=== PATIENT | male | born 1965 | race Caucasian/White ===

== ENCOUNTER 2017-06-25 10:48 | Observation (INO) ==
[2017-06-25 11:59] LABS: Bilirubin,Urine Negative (Negative); Blood,Urine Negative (Negative); Color,Urine Yellow (Yellow); Glucose,Urine (UA) Normal (Normal); Ketones,Urine Negative (Negative); Leukocyte Esterase,Urine Negative (Negative); Nitrite,Urine Negative (Negative); Protein,Urine Negative (Neg-Trace); Specific Gravity,Urine 1.015 (1.010-1.025); Urobilinogen,Urine Normal (Normal)
[2017-06-25 12:02] LABS: Clarity,Urine Clear (Clear)
--- NOTE | 2017-06-25 12:22 | Emergency Department Note ---
Disposition Clinical Impression: Hypokalemia Pancreatitis Qualifiers: Chronicity: acute Pancreatitis type: other Acute pancreatitis complication: unspecified Qualified Code(s): K85.80 - Other acute pancreatitis without necrosis or infection Esophageal varices Qualifiers: Esophageal varices type: unspecified type Esophageal varices bleeding: with bleeding Qualified Code(s): I85.01 - Esophageal varices with bleeding Hematemesis Qualifiers: Nausea presence: unspecified Qualified Code(s): K92.0 - Hematemesis Disposition: Admitted As Inpatient Condition: Fair Referrals: NONE,PCP [Primary Care Provider] - Forms: ED Satisfaction Letter, Work/School Release Time of Disposition: 15:18 Abdominal Pain HPI - General Chief Complaint: ED Abdominal Pain Stated Complaint: ABD pain N/V/D Time Seen by Provider: 06/25/17 11:07 Source: patient Nursing Notes Reviewed: Yes Vital Signs Reviewed: Yes - History of Present Illness HPI Narrative: Left upper quadrant pain which began 4 days gradually over time spent several hours and is intermittent and worse when he eats and is both sharp and dull. No radiation. No medication specifically used. I did review the previous records he was seen on the and had a CT scan which did show cirrhosis as well as portal hypertension and esophageal varices. He does have constant blood when he wipes from his hemorrhoids and this is not worse than usual. He does not have any complaint of right upper quadrant abdominal pain. Has had vomiting but none today. No fevers. Does have constant lower extremity swelling but nothing new. Social history: No smoking or alcohol. Per the record does have a family history of cirrhosis Pain Scale: 6 - Related Data Home Medications Medication Instructions Recorded Confirmed No Known Home Drugs 06/25/17 06/25/17 Allergies Allergy/AdvReac Type Severity Reaction Status Date / Time No Known Allergies Allergy Verified 06/25/17 10:53 Review of Systems: As Per HPI Abdominal Pain PMH - Past Medical History Medical history: Reports: asthma Male Surgical History: Reports: orthopedic, other Psychiatric history: Reports: no psych history - Social History Smoking status: Never smoker Alcohol use: Reports: rarely Drug use: Reports: none Physical Exam CONSTITUTIONAL: Alert and oriented X3, well-nourished, well appearing, in no apparent distress HEAD: Normocephalic; atraumatic. EYES: PERRL, no scleral icterus. NOSE: The nose is normal in appearance without rhinorrhea RESP: Normal chest excursion with respiration; breath sounds clear and equal bilaterally; no wheezes, rhonchi, or rales CARD: Regular rhythm, without murmurs, rub or gallop ABD: Non-distended; does have a minimal red area above the left upper quadrant and he said he has been scratching this area but there is no vesicles or anything in the dermatomal distribution which would be suggestive of zoster. He does have mild left upper quadrant pain but this area is soft without rigidity, rebound, guarding and elsewhere including the right upper quadrant abdomen is non-tender, soft,without rigidity, rebound or guarding SKIN: Normal for age and race; warm and dry; no apparent lesions Extremities: Bilateral lower extremity swelling which is moderate and no erythema or signs of infection. No asymmetry - General Limitations: no limitations General appearance: alert Course Vital Signs Temperature 98 F 06/25/17 10:54 Pulse Rate 86 06/25/17 10:54 Respiratory Rate 20 06/25/17 10:54 Blood Pressure 161/91 06/25/17 10:54 O2 Sat by Pulse Oximetry 94 06/25/17 10:54 Temperature 98 F 06/25/17 10:54 Pulse Rate 86 06/25/17 10:54 Respiratory Rate 20 06/25/17 10:54 Blood Pressure 161/91 06/25/17 10:54 O2 Sat by Pulse Oximetry 94 06/25/17 10:54 Oxygen Delivery Oxygen Delivery Room Air Abdominal Pain - MDM Narrative Medical decision making narrative: He does have cirrhosis and some splenomegaly based on the CT and that is likely the etiology of his pain this does need further evaluation and I will discuss further with GI. He is breathing comfortably. No chest pain or shortness of breath or any signs of myocardial ischemia. Labs here are pending. 1221 Labs and test results have been reviewed. Case discussed with the hospitalist who accepted the patient for admission. Rectal exam was positive for blood. The patient is started on Protonix, and octreotide. He will be kept nothing by mouth. IV fluids are given. Patient's potassium minimally low and this will be given IV 1613 - Medical Records Medical records reviewed: Yes I reviewed the patient's medical records. - Lab Data Lab results reviewed: Yes I reviewed the patient's lab results. Result diagrams: 06/25/17 12:16 06/25/17 12:16 Lab Results 06/25/17 06/25/17 06/25/17 Range/Units 11:37 12:16 12:16 WBC 5.9 (4.3-11.1) K/mcL RBC 3.72 L (4.19-5.50) M/mcL Hgb 12.8 L (12.9-16.9) g/dL Hct 37.1 L (37.5-50.1) % MCV 99.7 (83.0-100.0) fL MCH 34.4 H (28.0-33.3) pg MCHC 34.5 (31.6-35.5) g/dL RDW 14.6 H (11.5-14.5) % Plt Count 97 L (140-400) K/mcL MPV 9.7 (9.4-12.4) fL Seg Neutrophils % 58.0 % Lymphocytes % 24.0 % Monocytes % 12.0 % Eosinophils % 6.0 % Neutrophils # 3.4 (1.6-8.9) K/mcL Lymphocytes # 1.4 (0.6-4.6) K/mcL Monocytes # 0.7 (0.0-1.3) K/mcL Eosinophils # 0.4 (0.0-0.6) K/mcL Reactive Lymphocytes Present A (Not Present) Toxic Granulation Present A (Not Present) Platelet Estimate Decreased L (Normal) Immature Plt Fraction 3.3 (1.1-6.1) % Sodium 137 (136-145) mEq/L Potassium 3.3 L (3.5-5.1) mEq/L Chloride 106 (98-107) mEq/L Carbon Dioxide 25 (23-29) mEq/L BUN 6 (6-20) mg/dL Creatinine 0.57 L (0.70-1.30) mg/dL Est GFR ( Amer) > 60 (> 60) Est GFR (Non-Af Amer) > 60 (> 60) BUN/Creatinine Ratio 11 (6-26) Glucose 127 H (70-105) mg/dL Calculated Osmolality 283 (280-300) Calcium 8.6 (8.6-10.3) mg/dL Total Bilirubin 1.6 H (0.3-1.0) mg/dL Direct Bilirubin 0.5 H (0.0-0.2) mg/dL Indirect Bilirubin 1.1 (0.0-1.2) mg/dL AST 89 H (13-39) Units/L ALT 49 (7-52) Units/L Alkaline Phosphatase 152 H (34-104) Units/L Serum Total Protein 7.3 (6.4-8.9) g/dL Albumin 3.0 L (3.5-5.7) g/dL Globulin 4.3 H (2.4-3.5) g/dL Albumin/Globulin Ratio 0.7 L (1.1-2.2) Lipase 271 H (11-82) Units/L Urine Color Yellow (Yellow) Urine Clarity Clear (Clear) Urine pH 7.0 (5.0-8.0) pH Units Ur Specific [place] 1.015 (1.010-1.025) Urine Protein Negative (Neg-Trace) mg/dL Urine Glucose (UA) Normal (Normal) mg/dL Urine Ketones Negative (Negative) mg/dL Urine Blood Negative (Negative) Urine Nitrite Negative (Negative) Urine Bilirubin Negative (Negative) Urine Urobilinogen Normal (Normal) mg/dL Ur Leukocyte Esterase Negative (Negative) Stool Occult Blood (Negative) 06/25/17 Range/Units 15:26 WBC (4.3-11.1) K/mcL RBC (4.19-5.50) M/mcL Hgb (12.9-16.9) g/dL Hct (37.5-50.1) % MCV (83.0-100.0) fL MCH (28.0-33.3) pg MCHC (31.6-35.5) g/dL RDW (11.5-14.5) % Plt Count (140-400) K/mcL MPV (9.4-12.4) fL Seg Neutrophils % % Lymphocytes % % Monocytes % % Eosinophils % % Neutrophils # (1.6-8.9) K/mcL Lymphocytes # (0.6-4.6) K/mcL Monocytes # (0.0-1.3) K/mcL Eosinophils # (0.0-0.6) K/mcL Reactive Lymphocytes (Not Present) Toxic Granulation (Not Present) Platelet Estimate (Normal) Immature Plt Fraction (1.1-6.1) % Sodium (136-145) mEq/L Potassium (3.5-5.1) mEq/L Chloride (98-107) mEq/L Carbon Dioxide (23-29) mEq/L BUN (6-20) mg/dL Creatinine (0.70-1.30) mg/dL Est GFR ( Amer) (> 60) Est GFR (Non-Af Amer) (> 60) BUN/Creatinine Ratio (6-26) Glucose (70-105) mg/dL Calculated Osmolality (280-300) Calcium (8.6-10.3) mg/dL Total Bilirubin (0.3-1.0) mg/dL Direct Bilirubin (0.0-0.2) mg/dL Indirect Bilirubin (0.0-1.2) mg/dL AST (13-39) Units/L ALT (7-52) Units/L Alkaline Phosphatase (34-104) Units/L Serum Total Protein (6.4-8.9) g/dL Albumin (3.5-5.7) g/dL Globulin (2.4-3.5) g/dL Albumin/Globulin Ratio (1.1-2.2) Lipase (11-82) Units/L Urine Color (Yellow) Urine Clarity (Clear) Urine pH (5.0-8.0) pH Units Ur Specific [place] (1.010-1.025) Urine Protein (Neg-Trace) mg/dL Urine Glucose (UA) (Normal) mg/dL Urine Ketones (Negative) mg/dL Urine Blood (Negative) Urine Nitrite (Negative) Urine Bilirubin (Negative) Urine Urobilinogen (Normal) mg/dL Ur Leukocyte Esterase (Negative) Stool Occult Blood Positive A (Negative) - Radiology Data Radiology results reviewed: Yes I reviewed the patient's radiology results. Critical Care Time Critical Care Time: No
[2017-06-25 12:28] LABS: Red Cell Distribution Width 14.6 % (11.5-14.5)
[2017-06-25 12:29] LABS: Hematocrit 37.1 % (37.5-50.1); Hemoglobin 12.8 g/dL (12.9-16.9); Immature Platelets 3.3 % (1.1-6.1); Mean Corpuscular HGB Conc 34.5 g/dL (31.6-35.5); Mean Corpuscular Hemoglobin 34.4 pg (28.0-33.3); Mean Corpuscular Volume 99.7 fL (83.0-100.0); Mean Platelet Volume 9.7 fL (9.4-12.4); Red Blood Count 3.72 M/mcL (4.19-5.50)
[2017-06-25 12:33] LABS: Platelet Count 97 K/mcL (140-400)
[2017-06-25 12:47] LABS: Alanine Aminotransferase 49 Units/L (7-52); Albumin/Globulin Ratio 0.7 (1.1-2.2); Alkaline Phosphatase 152 Units/L (34-104); Aspartate Amino Transferase 89 Units/L (13-39); BUN/Creatinine Ratio 11 (6-26); Bilirubin,Direct 0.5 mg/dL (0.0-0.2); Bilirubin,Indirect 1.1 mg/dL (0.0-1.2); Bilirubin,Total 1.6 mg/dL (0.3-1.0); Blood Urea Nitrogen 6 mg/dL (6-20); Calcium 8.6 mg/dL (8.6-10.3); Carbon Dioxide 25 mEq/L (23-29); Chloride 106 mEq/L (98-107); Globulin 4.3 g/dL (2.4-3.5); Glucose 127 mg/dL (70-105); Lipase 271 Units/L (11-82); Osmolality,Calculated 283 (280-300); Potassium 3.3 mEq/L (3.5-5.1); Sodium 137 mEq/L (136-145); Total Protein 7.3 g/dL (6.4-8.9); eGFR For African Americans > 60 (> 60); eGFR For Non-African Americans > 60 (> 60)
[2017-06-25 13:42] LABS: Eosinophils # 0.4 K/mcL (0.0-0.6); Lymphocytes # 1.4 K/mcL (0.6-4.6); Monocytes # 0.7 K/mcL (0.0-1.3); Neutrophils # 3.4 K/mcL (1.6-8.9); Platelet Estimate Decreased (Normal); Toxic Granulation Present (Not Present)
[2017-06-25 13:43] LABS: Reactive Lymphocytes Present (Not Present)
[2017-06-25] MEDS ORDERED: Pantoprazole 40 MG VIAL IVP ONE (15:16)
[2017-06-25] MEDS ORDERED: Octreotide 50 MCG/ML SYRINGE IVP ONE (15:17)
[2017-06-25] MEDS ORDERED: 0.9 % Sodium Chloride 1,000 ML IVC ONE (16:11)
--- NOTE | 2017-06-25 19:59 | General Surgery Consult Note ---
Date of Encounter: 06/25/17 Time of Encounter: 18:00 Assessment and Plan (1) Abdominal pain Current Visit: No Status: Acute 51M with LUQ pain; concern for pancreatitis, but, if at all, it is minimal; no obvious pathology on CT although there is concern for possible portal HTN; NPO IVF no abx trend h/h x 24hrs plan for EGD to evaluate for GI bleed and abdominal pain; discussed with patient who is in agreement; Qualifiers: Abdominal location: left upper quadrant Qualified Code(s): R10.12 - Left upper quadrant pain (2) Hematemesis Current Visit: Yes Status: Acute see above Qualifiers: Nausea presence: unspecified Qualified Code(s): K92.0 - Hematemesis History of Present Illness Consult date: 06/25/17 Reason for consult: abdominal pain History of present illness: 51M presents with LUQ pain and hematemesis. Never had any prior episodes of significant pain like this nor any prior episodes of vomiting blood. A CT scan was obtained which was concerning for possible cirrhosis and associated portal hypertension. All imaging was evaluated and interpreted by me. Surgery was consulted for management recommendations. Past Med Surg Social Fam HX - Past Medical History Medical history: asthma Psychiatric history: no psych history - Past Surgical History Surgical History: no surgical history - Social History Smoking Status: Never smoker Smokeless Tobacco Status: No Alcohol use: rarely Drug use: none - Additional Family History Additional family history: non contributory Medications and Allergies No Known Home Drugs 06/25/17 [History] 3 Allergy/AdvReac Type Severity Reaction Status Date / Time No Known Allergies Allergy Verified 06/25/17 10:53 Review of Systems All systems PM: A 10-system review of systems was performed and is negative for pertinent findings except as documented above in the HPI. General Surgery Exam Initial Vital Signs Temp Pulse Resp BP Pulse Ox 98 F 86 20 161/91 94 06/25/17 10:54 06/25/17 10:54 06/25/17 10:54 06/25/17 10:54 06/25/17 10:54 - General physical appearance well developed - Eyes normal ocular movement - ENT normocephalic - Neck no lymphadectomy - Respiratory normal expansion, normal respiratory effort - Cardiovascular Cardiovascular exam: Present: RRR - Abdomen Abdomen general surgery: Present: soft, tender Abdominal Tenderness: Present: LUQ - Integumentary Integumentary general surgery: Present: warm and dry - Neurologic Present: CN 2-12 grossly intact - Psychiatric Psychiatric general surgery: Present: A&Ox3 Exam Initial Vital Signs Temp Pulse Resp BP Pulse Ox 98 F 86 20 161/91 94 06/25/17 10:54 06/25/17 10:54 06/25/17 10:54 06/25/17 10:54 06/25/17 10:54 Results - Labs 06/25/17 12:16 06/25/17 12:16 Abnormal lab results RBC 3.72 M/mcL (4.19-5.50) L 06/25/17 12:16 Hgb 12.8 g/dL (12.9-16.9) L 06/25/17 12:16 Hct 37.1 % (37.5-50.1) L 06/25/17 12:16 MCH 34.4 pg (28.0-33.3) H 06/25/17 12:16 RDW 14.6 % (11.5-14.5) H 06/25/17 12:16 Plt Count 97 K/mcL (140-400) L 06/25/17 12:16 Reactive Lymphocytes Present (Not Present) A 06/25/17 12:16 Toxic Granulation Present (Not Present) A 06/25/17 12:16 Platelet Estimate Decreased (Normal) L 06/25/17 12:16 Potassium 3.3 mEq/L (3.5-5.1) L 06/25/17 12:16 Creatinine 0.57 mg/dL (0.70-1.30) L 06/25/17 12:16 Glucose 127 mg/dL (70-105) H 06/25/17 12:16 Total Bilirubin 1.6 mg/dL (0.3-1.0) H 06/25/17 12:16 Direct Bilirubin 0.5 mg/dL (0.0-0.2) H 06/25/17 12:16 AST 89 Units/L (13-39) H 06/25/17 12:16 Alkaline Phosphatase 152 Units/L (34-104) H 06/25/17 12:16 Albumin 3.0 g/dL (3.5-5.7) L 06/25/17 12:16 Globulin 4.3 g/dL (2.4-3.5) H 06/25/17 12:16 Albumin/Globulin Ratio 0.7 (1.1-2.2) L 06/25/17 12:16 Lipase 271 Units/L (11-82) H 06/25/17 12:16 Stool Occult Blood Positive (Negative) A 06/25/17 15:26 All other labs normal. - Imaging CT scan - abdomen: report reviewed, image reviewed CT scan - pelvis: report reviewed, image reviewed US - abdomen: report reviewed, image reviewed Consult Discharge Plan - Plan Referrals: NONE,PCP [Primary Care Provider] -
--- NOTE | 2017-06-25 20:22 | Internal Med History&Physical ---
Date of Encounter: 06/25/17 Time of Encounter: 19:00 Assessment and Plan (1) Cirrhosis of liver Current visit: No Status: Acute -Patient found to have mild elevated transaminases. -CT of the abdomen/pelvis showed cirrhosis and splenomegaly with findings compatible with portal hypertension in addition to dilated serpiginous tubular structures at the GE junction suggest esophageal varices formation; small amount of ascites. -Will also consult GI for cirrhosis/splenomegaly with elevated transaminases. Qualifiers: Hepatic cirrhosis type: unspecified hepatic cirrhosis Qualified Code(s): K74.60 - Unspecified cirrhosis of liver (2) Pancreatitis Current visit: Yes Status: Acute -Patient with mildly elevated lipase -Will keep nothing by mouth with IV fluids and monitor levels Qualifiers: Chronicity: acute Pancreatitis type: other Acute pancreatitis complication: unspecified Qualified Code(s): K85.80 - Other acute pancreatitis without necrosis or infection (3) Esophageal varices Current visit: Yes Status: Acute -CT of the abdomen/pelvis showed cirrhosis and splenomegaly with findings compatible with portal hypertension in addition to dilated serpiginous tubular structures at the GE junction suggest esophageal varices formation. -Surgery was consult from the ER with recommendations for EGD due to esophageal varices. Qualifiers: Esophageal varices type: unspecified type Esophageal varices bleeding: with bleeding Qualified Code(s): I85.01 - Esophageal varices with bleeding (4) Abdominal pain Current visit: No Status: Acute -Secondary to the above; continue to monitor Qualifiers: Abdominal location: left upper quadrant Qualified Code(s): R10.12 - Left upper quadrant pain (5) Hypokalemia Current visit: Yes Status: Acute -Potassium 2.3 on admission; will order replacements (6) Thrombocytopenia Current visit: Yes Status: Acute -Patient with thrombocytopenia; suspect from cirrhosis -Patient without any active bleeding; continue to monitor (7) DVT prophylaxis Current visit: Yes Status: Acute -SCDs due to thrombocytopenia about Internal Medicine - H&P: HPI Chief complaint: Abdominal pain Admitted From: Home Plans for Post Hospital Care: Home History of present illness: Patient is a 51-year-old male with no significant past medical history who presented to the ER on 06/25/17 due to abdominal pain. Patient reported approximately 5 days ago of experiencing abdominal pain about 4 hours after eating pizza. Patient also reported of abdominal distention. Patient reports of not eating for much of the week but did eat at [employer] yesterday and experienced abdominal pain again shortly thereafter. He also reports a 1 day history of diarrhea as well. Patient decided to come to the ER for evaluation. In the ER, patient was found to have mild elevated transaminases. CT of the abdomen/pelvis showed cirrhosis and splenomegaly with findings compatible with portal hypertension in addition to dilated serpiginous tubular structures at the GE junction suggest esophageal varices formation; small amount of ascites. Surgery was consult from the ER with recommendations for EGD due to esophageal varices. Will also consult GI for cirrhosis/splenomegaly with elevated transaminases. Past Med Surg Social Fam HX - Past Medical History Medical history: asthma Psychiatric history: no psych history - Past Surgical History Surgical History: no surgical history - Social History Smoking Status: Never smoker Smokeless Tobacco Status: No Alcohol use: rarely Drug use: none Internal Medicine - H&P: Meds No Known Home Drugs 06/25/17 [History] 3 Allergy/AdvReac Type Severity Reaction Status Date / Time No Known Allergies Allergy Verified 06/25/17 10:53 All Systems PM: A 10-system review of systems was performed and is negative for pertinent findings except as documented above in the HPI. - Constitutional Vitals: Temp Pulse Resp BP Pulse Ox 98.7 F 82 16 161/87 94 06/25/17 18:45 06/25/17 18:45 06/25/17 18:45 06/25/17 18:45 06/25/17 18:45 General appearance: Present: no acute distress, obese - Head Head exam: Present: normocephalic - Eye Eye exam: Present: normal appearance - ENT ENT exam: Present: mucous membranes moist - Respiratory Respiratory exam: Present: CTAB. Absent: accessory muscle use, rales, rhonchi, wheezes - Cardiovascular Cardiovascular exam: Present: RRR, +S1, +S2. Absent: diastolic murmur, gallop, rubs, systolic murmur - GI/Abdominal GI/Abdominal exam: Present: distended, soft. Absent: guarding - Extremities Exam Extremities exam: Present: pedal edema - Expanded Lower Extremities Exam Lower Leg exam: Present: swelling Ankle exam: Present: swelling Foot/Toe exam: Present: swelling - Neurological Exam Neurological exam: Present: oriented X3 - Psychiatric Psychiatric exam: Present: normal mood - Skin Skin exam: Present: normal color Internal Med - H&P Results - Labs CBC & Chem 7: 06/25/17 12:16 06/25/17 12:16
[2017-06-25] MEDS ORDERED: *HR* FentaNYL (PF) 100 MCG/2 ML VIAL IVP ONE (20:31)
--- NOTE | 2017-06-25 20:31 | Pre-Sedation Evaluation ---
Pre-sedation evaluation - Pre-sedation checklist Date of procedure: 06/25/17 Procedure: EGD Recent Vitals: Last Vital Signs Temp 98.7 F 06/25/17 18:45 Pulse 82 06/25/17 18:45 Resp 16 06/25/17 18:45 BP 161/87 06/25/17 18:45 Pulse Ox 94 06/25/17 18:45 H&P (including ROS) documented in medical record: Yes Dietary Status: No solid food in preceding 4 hrs and no liquid in preceding 2 hrs Possible difficult airway: Yes If Yes;: Enlarged neck circumference, short neck ASA Classification *see protocol: CLASS II-Mild systemic disease Plan of Care: Pt appropriate candidate for procedure/moderate/conscious sedation , Risks/benefits of procedure/sedation discussed w/ patient/family, If not NPO; Risk of intake outweiged by necessity to perform procedure
[2017-06-25] MEDS ORDERED: Naloxone 0.4 MG/ML INJ IVP PRN (20:37)
[2017-06-25] MEDS ORDERED: 0.9 % Sodium Chloride 1,000 ML IVC SCH (21:00)
[2017-06-25] MEDS ORDERED: *HR* Midazolam HCl 5 MG/5 ML VIAL IVP ONE (21:59)
[2017-06-25] MEDS ORDERED: *HR* FentaNYL (PF) 100 MCG/2 ML VIAL ONE (22:00)
[2017-06-25] MEDS: *HR* Midazolam HCl 2 MG/2 ML VIAL IVP ONE ×2 (22:22→22:25)
[2017-06-26 04:13] LABS: Hemoglobin 12.9 g/dL (12.9-16.9); Immature Granulocytes % 0.4 % (0-4); Red Cell Distribution Width 14.6 % (11.5-14.5)
[2017-06-26 04:14] LABS: Basophils # 0.1 K/mcL (0.0-0.2); Basophils % 1.2 %; Eosinophils # 0.5 K/mcL (0.0-0.6); Eosinophils % 9.2 %; Immature Platelets 4.5 % (1.1-6.1); Lymphocytes # 2.1 K/mcL (0.6-4.6); Lymphocytes % 36.1 %; Mean Corpuscular HGB Conc 34.9 g/dL (31.6-35.5); Mean Corpuscular Hemoglobin 34.2 pg (28.0-33.3); Mean Corpuscular Volume 98.1 fL (83.0-100.0); Mean Platelet Volume 10.3 fL (9.4-12.4); Monocytes # 0.5 K/mcL (0.0-1.3); Monocytes % 8.5 %; Neutrophils # 2.5 K/mcL (1.6-8.9); Red Blood Count 3.77 M/mcL (4.19-5.50); Segmented Neutrophils % 44.6 %
[2017-06-26 04:15] LABS: INR 1.4; Prothrombin Time 15.6 Seconds (9.4-12.1)
[2017-06-26 04:44] LABS: Alanine Aminotransferase 55 Units/L (7-52); Albumin 2.8 g/dL (3.5-5.7); Albumin/Globulin Ratio 0.7 (1.1-2.2); Alkaline Phosphatase 126 Units/L (34-104); Aspartate Amino Transferase 108 Units/L (13-39); BUN/Creatinine Ratio 12 (6-26); Bilirubin,Total 2.1 mg/dL (0.3-1.0); Blood Urea Nitrogen 7 mg/dL (6-20); Calcium 8.2 mg/dL (8.6-10.3); Carbon Dioxide 27 mEq/L (23-29); Chloride 110 mEq/L (98-107); Globulin 4.2 g/dL (2.4-3.5); Glucose 87 mg/dL (70-105); Osmolality,Calculated 289 (280-300); Potassium 3.7 mEq/L (3.5-5.1); Sodium 141 mEq/L (136-145); eGFR For African Americans > 60 (> 60); eGFR For Non-African Americans > 60 (> 60)
[2017-06-26 05:02] LABS: Platelet Count 94 K/mcL (140-400)
[2017-06-26 05:04] LABS: Platelet Estimate Decreased (Normal)
--- NOTE | 2017-06-26 09:15 | Event Note ---
Date of Encounter: 06/26/17 Time of Encounter: 10:00 Pt had EGD last night by Dr Iglesias which showed small esophageal varices. Disussed with Dr Beckman, will follow up in the office as an outpatient.
--- NOTE | 2017-06-26 09:54 | Discharge Summary ---
<Elo Patino - Last Filed: 06/26/17 10:47> Date of Encounter: 06/26/17 Time of Encounter: 09:50 - Discharge Diagnosis (1) Cirrhosis of liver Priority: Primary Status: Acute Comments: Patient was found to have mildly elevated transaminases. CT showed cirrhosis and splenomegaly with findings consistent with portal HTN, small amount of ascites, and esophageal varices. EGD confirmed small varicies. - Will follow up with GI outpatient Qualifiers: Hepatic cirrhosis type: unspecified hepatic cirrhosis Qualified Code(s): K74.60 - Unspecified cirrhosis of liver (2) Pancreatitis Priority: Secondary Status: Acute Comments: Mildly elevated lipase. - Patient NPO, monitor levels. - Will follow up with GI outpatient Qualifiers: Chronicity: acute Pancreatitis type: other Acute pancreatitis complication: unspecified Qualified Code(s): K85.80 - Other acute pancreatitis without necrosis or infection (3) Esophageal varices Priority: Secondary Status: Acute Comments: EGD performed by doctor Iglesias confirmed small varicies. - Dr. Iglesias recommendation is for conservative management with monitoring. Qualifiers: Esophageal varices type: unspecified type Esophageal varices bleeding: with bleeding Qualified Code(s): I85.01 - Esophageal varices with bleeding (4) Abdominal pain Priority: Secondary Status: Resolved Comments: Secondary to the above. Patient currently not experiencing any abdominal pain. - Patient will be following with GI outpatient. Qualifiers: Abdominal location: left upper quadrant Qualified Code(s): R10.12 - Left upper quadrant pain (5) Hypokalemia Priority: Secondary Status: Resolved Comments: Was 2.3 on admission. Potassium was replaced during course of stay. Now 3.7 (6) Thrombocytopenia Priority: Secondary Status: Acute Comments: -Patient with thrombocytopenia; suspect from cirrhosis -Patient without any active bleeding; continue to monitor - Patient will follow-up with GI outpatient (7) DVT prophylaxis Priority: Secondary Status: Acute Comments: Sequential compression device due to thrmbocytopenia - Discharge Medications Prescriptions: Ondansetron HCl [Zofran] 4 mg PO Q8HR PRN #15 tablet PRN Reason: Nausea Omeprazole [PriLOSEC] 40 mg PO DAILY #30 cap Home Medications: Omeprazole [PriLOSEC] 40 mg PO DAILY #30 cap 06/26/17 [Rx] Ondansetron HCl [Zofran] 4 mg PO Q8HR PRN #15 tablet 06/26/17 [Rx] Allergies/Adverse Reactions: 3 Allergy/AdvReac Type Severity Reaction Status Date / Time No Known Allergies Allergy Verified 06/25/17 10:53 Date of admission: 06/25/17 16:56 Primary care physician: PCP NONE Consults: 06/25/17 20:54 Consult to Gastroenterology [CONS] Routine Consulting Provider: [facility] Reason for Consult: cirrhosis/splenomegaly with elevated transaminases Call Completed: No Discharging clinician: Ricardo Gupta Anticipated date of discharge: 06/26/17 - Patient Status Disposition: Home, Self-Care Condition: Good Functional capacity at discharge: independent ambulation Overall status at discharge: patient is back to baseline - Discharge Instructions Instructions: Pancreatitis (GEN) Follow Up With: NONE,PCP [Primary Care Provider] - Lilia Beckman MD [Partnered Physician] - Zaki Iglesias MD [Non-Partnered Physician] - 07/01/17 (follow up with Dr. Iglesias next week to evaluate abdominal pain, and consultation for cholecystectomy) Additional Instructions: Start taking omeprazole and take Zofran as needed for nausea follow-up with Dr. Beckman outpatient follow-up with PCP in 1 to 2 weeks return to the hospital should be developed fever, chills, worsening abdominal pain - Diet and Activity Activity: resume usual activities as tolerated Diet: advance to your usual diet (slowly) Hospital course: Mr Diaz is a 51 year old male who initially presented to [facility] ED 06/25 with a chief complaint of abdominal pain. He stated that approximately 5 days ago, he had abdominal pain approximately 4 hours after eating pizza. He stated that he did not eat much for the next 4 days, but yesterday, he had [place] and the pain returned. He was also complaining of a 1 day histroy of diarrhea. In the ED, patient was found to have mildly elevated trransaminases and a CT of the abdomen/pelvis showed cirrhosis and splenomegaly with findings compatible with portal hypertension in addition to dilated serpiginous tubular structures at the GE junction suggest esophageal varices formation; small amount of ascites. Patient denied any history of alcohol abuse, hepatitis, or any other liver etiology. Surgery was consulted for the varices. There was also an elevation in lipase and patient was hypokalemia with a K of 2.3. Patient was also thrombocytopenic likely secondary to cirrhosis. Patient was admitted with diagnoses of cirrhosis of unknown etiology, pancreatits, esophageal varicies, and hypokalemia. Dr. Iglesias performed and EGD and confirmed presnence of small varices and recommended conservative management with medication and with G.I. follow-up . This morning, patient is sitting comfortably and is in no acute distress. Potassium is 3.7 now and plan is to discharge patient home with outpatient follow-up with GI. He will be given a script of omeprazole and Zofran. He is to also follow up with his PCP. He is alongside his . He is alert and oriented times 3 in full capacity and stated a clear understanding of the treatment plan. - Time Spent with Patient Total time spent providing and/or coordinating discharge services: Greater than 30 minutes - Constitutional Vitals: Temp Pulse Resp BP Pulse Ox 98.5 F 77 18 143/76 94 06/26/17 08:27 06/26/17 08:27 06/26/17 08:27 06/26/17 08:27 06/26/17 08:27 General appearance: Present: A&O X 3, morbidly obese, pleasant, no acute distress, obese, answers questions appropriately - Head Head exam: Present: normal inspection - Neck Neck exam general surgery: Present: normal inspection - Respiratory Respiratory exam: Present: CTAB. Absent: rales - Cardiovascular Cardiovascular exam: Present: RRR, +S1, +S2 - GI/Abdominal GI/Abdominal exam: Present: distended, normal bowel sounds, soft, splenomegaly, no peritoneal signs. Absent: firm, guarding, tenderness - Extremities Exam Extremities exam: Present: normal inspection. Absent: calf tenderness - Psychiatric Psychiatric exam: Present: normal affect, normal mood - Skin Skin exam: Present: dry, normal color, warm <Zaki Iglesias - Last Filed: 06/26/17 12:48> Date of Encounter: 06/26/17 - Discharge Diagnosis (1) Abdominal pain Status: Resolved Qualifiers: Abdominal location: left upper quadrant Qualified Code(s): R10.12 - Left upper quadrant pain (2) Hematemesis Status: Acute Qualifiers: Nausea presence: unspecified Qualified Code(s): K92.0 - Hematemesis Date of admission: 06/25/17 16:56 Primary care physician: PCP NONE Consults: 06/25/17 20:54 Consult to Gastroenterology [CONS] Routine Consulting Provider: [facility] [place] Reason for Consult: cirrhosis/splenomegaly with elevated transaminases Call Completed: No Hospital course: Mr. Diaz is a 51 year old male - Time Spent with Patient Total time spent providing and/or coordinating discharge services: - Constitutional Vitals: Temp Pulse Resp BP Pulse Ox 98.4 F 80 15 150/87 94 06/26/17 10:46 06/26/17 10:46 06/26/17 10:46 06/26/17 10:46 06/26/17 10:46 <Ricardo Gupta - Last Filed: 06/26/17 14:18> Date of Encounter: 06/26/17 Date of admission: 06/25/17 16:56 Primary care physician: PCP NONE Consults: 06/25/17 20:54 Consult to Gastroenterology [CONS] Routine Consulting Provider: [facility]enter[facility] Reason for Consult: cirrhosis/splenomegaly with elevated transaminases Call Completed: No Hospital course: Mr. Diaz is a 51 year old male - Time Spent with Patient Total time spent providing and/or coordinating discharge services: - Constitutional Vitals: Temp Pulse Resp BP Pulse Ox 98.4 F 80 15 150/87 94 06/26/17 10:46 06/26/17 10:46 06/26/17 10:46 06/26/17 10:46 06/26/17 10:46 - Attending Attestation Acute pancreatitis Tolerating diet Time spent on this discharge 40 minutes I examined this patient and my medical decision-making was reviewed with the Resident Physician. I agree with the documented findings, disposition and treatment plan as described except to the extent set forth below.
[2017-06-26 10:47] VITALS: BP 150/87
--- NOTE | 2017-06-26 12:48 | General Surgery Progress Note ---
Date of Encounter: 06/26/17 Time of Encounter: 09:00 - Assessment and Plan (1) Abdominal pain Status: Resolved 51M with portal HTN, portal gastropathy on EGD; Gi consult follow up with me in my clinic for consultation about cholecystectomy Qualifiers: Abdominal location: left upper quadrant Qualified Code(s): R10.12 - Left upper quadrant pain (2) Hematemesis Status: Acute see above Qualifiers: Nausea presence: unspecified Qualified Code(s): K92.0 - Hematemesis Subjective Patient reports: no new complaints, feels better, afebrile Objective Vital Signs - Last 8 Hours Temp Pulse Resp BP Pulse Ox 06/26/17 10:46 98.4 F 80 15 150/87 94 06/26/17 08:27 98.5 F 77 18 143/76 94 Intake and Output 06/25/17 06/26/17 06/26/17 23:59 07:59 15:59 Intake Total 100 / 100 0 / 0 Output Total 150 / 150 0 / 0 Balance -50 / -50 0 / 0 Intake: IV Fluids 100 / 100 Potassium Chloride 10 mEq/100mL 100 / 100 10 meq In 100 ml @ 100 mls/hr IVPB Q1H [facility] Rx#:[id number] Oral 0 / 0 0 / 0 Output: Urine 150 / 150 0 / 0 Other: Meal npo # Voids 1 Blood Glucose* 86 - General physical appearance no distress - Respiratory normal expansion, normal respiratory effort - Cardiovascular Cardiovascular exam: Present: RRR - Abdomen Abdomen: Present: soft - Neurologic CN 2-12 grossly intact - Psychiatric oriented to time, oriented to person, oriented to place - Labs 06/26/17 03:34 06/26/17 03:34 Diabetes panel 06/26/17 Range/Units 03:34 Sodium 141 (136-145) mEq/L Potassium 3.7 (3.5-5.1) mEq/L Chloride 110 H (98-107) mEq/L Carbon Dioxide 27 (23-29) mEq/L BUN 7 (6-20) mg/dL Creatinine 0.58 L (0.70-1.30) mg/dL Glucose 87 (70-105) mg/dL Calcium 8.2 L (8.6-10.3) mg/dL AST 108 H (13-39) Units/L ALT 55 H (7-52) Units/L Alkaline Phosphatase 126 H (34-104) Units/L Albumin 2.8 L (3.5-5.7) g/dL Calcium panel 06/26/17 Range/Units 03:34 Calcium 8.2 L (8.6-10.3) mg/dL Albumin 2.8 L (3.5-5.7) g/dL Pituitary panel 06/26/17 Range/Units 03:34 Sodium 141 (136-145) mEq/L Potassium 3.7 (3.5-5.1) mEq/L Chloride 110 H (98-107) mEq/L Carbon Dioxide 27 (23-29) mEq/L BUN 7 (6-20) mg/dL Creatinine 0.58 L (0.70-1.30) mg/dL Glucose 87 (70-105) mg/dL Calcium 8.2 L (8.6-10.3) mg/dL Adrenal panel 06/26/17 Range/Units 03:34 Sodium 141 (136-145) mEq/L Potassium 3.7 (3.5-5.1) mEq/L Chloride 110 H (98-107) mEq/L Carbon Dioxide 27 (23-29) mEq/L BUN 7 (6-20) mg/dL Creatinine 0.58 L (0.70-1.30) mg/dL Glucose 87 (70-105) mg/dL Calcium 8.2 L (8.6-10.3) mg/dL Total Bilirubin 2.1 H (0.3-1.0) mg/dL AST 108 H (13-39) Units/L ALT 55 H (7-52) Units/L Alkaline Phosphatase 126 H (34-104) Units/L Albumin 2.8 L (3.5-5.7) g/dL - Imaging CT scan - abdomen: report reviewed, image reviewed CT Scan - head: report reviewed, image reviewed US - abdomen: report reviewed, image reviewed Consult Discharge Plan - Plan Instructions: Pancreatitis (GEN) Additional Instructions: Start taking omeprazole and take Zofran as needed for nausea follow-up with Dr. Beckman outpatient follow-up with PCP in 1 to 2 weeks return to the hospital should be developed fever, chills, worsening abdominal pain Referrals: NONE,PCP [Primary Care Provider] - Lilia Beckman MD [Partnered Physician] - Prescriptions: Ondansetron HCl [Zofran] 4 mg PO Q8HR PRN #15 tablet PRN Reason: Nausea Omeprazole [PriLOSEC] 40 mg PO DAILY #30 cap
== END 2017-06-26 12:02 | disposition home or self-care (01) ==
LOC: 3ANU 10:48 → EMEROO 10:48 → 3ANU 17:53
PROVIDERS: ADMIT Internal Medicine; ATTEND Internal Medicine

== ENCOUNTER 2017-08-12 13:38 | Observation (INO) ==
--- NOTE | 2017-08-12 13:53 | Emergency Department Note ---
Disposition Clinical Impression: Hyperammonemia Abdominal pain Qualifiers: Abdominal location: generalized Qualified Code(s): R10.84 - Generalized abdominal pain Cirrhosis of liver Qualifiers: Hepatic cirrhosis type: unspecified hepatic cirrhosis Ascites presence: without ascites Qualified Code(s): K74.60 - Unspecified cirrhosis of liver Change in mental status Qualifiers: Altered mental status type: delirium Qualified Code(s): R41.0 - Disorientation , unspecified Disposition: Admitted As Inpatient Condition: Undetermined Referrals: Marichuy Fisher CNP [Primary Care Provider] - Forms: ED Satisfaction Letter, Work/School Release Time of Disposition: 15:08 Abdominal Pain HPI - General Chief Complaint: ED Abdominal Pain Stated Complaint: Liver problems Time Seen by Provider: 08/12/17 13:44 Source: patient, family Mode of arrival: ambulatory Limitations: no limitations Nursing Notes Reviewed: Yes Vital Signs Reviewed: Yes - History of Present Illness HPI Narrative: 51-year-old female with 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 The patient denies any fevers, chills, chest pain, difficulty breathing. The patient states he took 2 doses of lactulose this morning after talking to his primary care physician. The patient states he wanted to come into the emergency department for evaluation. He has been experiencing worsening abdominal distention over the course of the past 2 weeks. Pain Scale: 8 - Related Data Home Medications Medication Instructions Recorded Confirmed Furosemide [Lasix] 20 mg PO DAILY 07/24/17 08/05/17 Lactulose 30 ml PO BID 07/24/17 08/05/17 Omeprazole [PriLOSEC] 40 mg PO DAILY PRN 07/24/17 08/05/17 Rifaximin [Xifaxan] 550 mg PO BID 07/24/17 08/05/17 Spironolactone [Aldactone] 50 mg PO DAILY 07/24/17 08/05/17 Multivitamin [One Daily 1 each PO DAILY 08/12/17 08/12/17 Multivitamin] Nadolol [Corgard] 40 mg PO DAILY 08/12/17 08/12/17 Allergies Allergy/AdvReac Type Severity Reaction Status Date / Time No Known Allergies Allergy Verified 08/12/17 13:43 All systems ED: reviewed and negative except as stated. Constitutional: Denies: fever, chills, weakness ENT ED: Denies: congestion Cardiovascular: Denies: chest pain Respiratory: Denies: dyspnea Gastrointestinal: Reports: abdominal pain, nausea. Denies: vomiting, diarrhea, constipation, hematemesis, melena, hematochezia Genitourinary: Denies: urgency, dysuria Musculoskeletal: Denies: back pain Integumentary: Denies: rash Neurological: Reports: weakness, confusion. Denies: headache, paresthesias, abnormal gait, vertigo Abdominal Pain PMH - Past Medical History Medical history: Reports: cirrhosis, hypertension, other Male Surgical History: Reports: orthopedic, other, other Psychiatric history: Reports: no psych history - Social History Smoking status: Never smoker Alcohol use: Reports: none Drug use: Reports: none Physical Exam - General Limitations: no limitations General appearance: alert, in no apparent distress - Head Head exam: atraumatic, normocephalic, normal inspection - Eye Eye exam: Present: normal appearance, PERRL, EOMI - ENT ENT exam: normal exam, normal oropharynx, mucous membranes moist - Neck Neck exam: Present: normal inspection, full ROM, trachea midline - Chest Chest inspection: Present: normal inspection, symmetric chest wall rise - Respiratory Respiratory exam: Present: normal lung sounds bilaterally - Cardiovascular Cardiovascular exam: Present: regular rate, normal rhythm, normal heart sounds - Abdominal Exam Abdominal exam: Present: soft, tenderness (Left sided pain), distention. Absent : guarding, rebound, rigidity, Winston's sign, Rovsing's sign, tenderness at McBurney's Point, pulsatile mass, hernia Course Vital Signs Temperature 98.8 F 08/12/17 13:40 Pulse Rate 72 08/12/17 13:40 Respiratory Rate 18 08/12/17 13:40 Blood Pressure 131/78 08/12/17 13:40 O2 Sat by Pulse Oximetry 98 08/12/17 13:40 Temperature 98.8 F 08/12/17 13:40 Pulse Rate 74 08/12/17 14:02 Respiratory Rate 14 08/12/17 14:02 Blood Pressure 132/76 08/12/17 14:02 O2 Sat by Pulse Oximetry 97 08/12/17 14:02 Oxygen Delivery Oxygen Delivery Room Air Abdominal Pain - MDM Narrative Medical decision making narrative: Workup in the emergency department demonstrates elevated bilirubin as well as ammonia level. His ammonia level is elevated but is lower than it has been in the past. This may be due to the patient taking extra lactulose. The patient is still slightly confused. He does have some elevated bilirubin higher than it has been in the past. With the patient's abdominal pain mixed with his generalized weakness and mild confusion per , they do not feel comfortable being discharged home at this time. We will admit the patient to the hospital for further care and workup. Patient made aware and agrees to plan. No further questions or concerns noted at this time. Accepted by Dr. Akbar. - Medical Records Medical records reviewed: Yes I reviewed the patient's medical records. - Lab Data Lab results reviewed: Yes I reviewed the patient's lab results. Result diagrams: 08/12/17 13:47 08/12/17 13:47 Lab Results 08/12/17 08/12/17 08/12/17 Range/Units 13:47 13:47 13:47 WBC 5.4 (4.3-11.1) K/mcL RBC 4.08 L (4.19-5.50) M/mcL Hgb 14.1 (12.9-16.9) g/dL Hct 40.7 (37.5-50.1) % MCV 99.8 (83.0-100.0) fL MCH 34.6 H (28.0-33.3) pg MCHC 34.6 (31.6-35.5) g/dL RDW 14.6 H (11.5-14.5) % Plt Count 100 L (140-400) K/mcL MPV 10.1 (9.4-12.4) fL Immature Gran % 0.2 (0-4) % Seg Neutrophils % 55.2 % Lymphocytes % 31.7 % Monocytes % 8.7 % Eosinophils % 3.1 % Basophils % 1.1 % Neutrophils # 3.0 (1.6-8.9) K/mcL Lymphocytes # 1.7 (0.6-4.6) K/mcL Monocytes # 0.5 (0.0-1.3) K/mcL Eosinophils # 0.2 (0.0-0.6) K/mcL Basophils # 0.1 (0.0-0.2) K/mcL PT 15.3 H (9.4-12.1) Seconds INR 1.4 APTT 36.2 H (26.0-36.0) Seconds Sodium 135 L (136-145) mEq/L Potassium 3.8 (3.5-5.1) mEq/L Chloride 105 (98-107) mEq/L Carbon Dioxide 25 (23-29) mEq/L BUN 8 (6-20) mg/dL Creatinine 0.67 L (0.70-1.30) mg/dL Est GFR ( Amer) > 60 (> 60) Est GFR (Non-Af Amer) > 60 (> 60) BUN/Creatinine Ratio 12 (6-26) Glucose 157 H (70-105) mg/dL Calculated Osmolality 282 (280-300) Calcium 9.1 (8.6-10.3) mg/dL Total Bilirubin 2.4 H (0.3-1.0) mg/dL Direct Bilirubin 0.9 H (0.0-0.2) mg/dL Indirect Bilirubin 1.5 H (0.0-1.2) mg/dL AST 106 H (13-39) Units/L ALT 61 H (7-52) Units/L Alkaline Phosphatase 135 H (34-104) Units/L Ammonia (16-53) mcmol/L Troponin I < 0.03 (< 0.04) ng/mL Serum Total Protein 7.6 (6.4-8.9) g/dL Albumin 3.2 L (3.5-5.7) g/dL Globulin 4.4 H (2.4-3.5) g/dL Albumin/Globulin Ratio 0.7 L (1.1-2.2) Lipase (11-82) Units/L Urine Color (Yellow) Urine Clarity (Clear) Urine pH (5.0-8.0) pH Units Ur Specific [place] (1.010-1.025) Urine Protein (Neg-Trace) mg/dL Urine Glucose (UA) (Normal) mg/dL Urine Ketones (Negative) mg/dL Urine Blood (Negative) Urine Nitrite (Negative) Urine Bilirubin (Negative) Urine Urobilinogen (Normal) mg/dL Ur Leukocyte Esterase (Negative) Urine Microscopic RBC (0-3) per hpf Urine Microscopic WBC (0-3) per hpf Ur Squamous Epith Cells (None-Few) per lpf Urine Bacteria (None-Few) per hpf Hyaline Casts (None-Few) per lpf Ur Culture Indicated? (NO) 08/12/17 08/12/17 08/12/17 Range/Units 13:50 13:52 13:59 WBC (4.3-11.1) K/mcL RBC (4.19-5.50) M/mcL Hgb (12.9-16.9) g/dL Hct (37.5-50.1) % MCV (83.0-100.0) fL MCH (28.0-33.3) pg MCHC (31.6-35.5) g/dL RDW (11.5-14.5) % Plt Count (140-400) K/mcL MPV (9.4-12.4) fL Immature Gran % (0-4) % Seg Neutrophils % % Lymphocytes % % Monocytes % % Eosinophils % % Basophils % % Neutrophils # (1.6-8.9) K/mcL Lymphocytes # (0.6-4.6) K/mcL Monocytes # (0.0-1.3) K/mcL Eosinophils # (0.0-0.6) K/mcL Basophils # (0.0-0.2) K/mcL PT (9.4-12.1) Seconds INR APTT (26.0-36.0) Seconds Sodium (136-145) mEq/L Potassium (3.5-5.1) mEq/L Chloride (98-107) mEq/L Carbon Dioxide (23-29) mEq/L BUN (6-20) mg/dL Creatinine (0.70-1.30) mg/dL Est GFR ( Amer) (> 60) Est GFR (Non-Af Amer) (> 60) BUN/Creatinine Ratio (6-26) Glucose (70-105) mg/dL Calculated Osmolality (280-300) Calcium (8.6-10.3) mg/dL Total Bilirubin (0.3-1.0) mg/dL Direct Bilirubin (0.0-0.2) mg/dL Indirect Bilirubin (0.0-1.2) mg/dL AST (13-39) Units/L ALT (7-52) Units/L Alkaline Phosphatase (34-104) Units/L Ammonia 76 H (16-53) mcmol/L Troponin I (< 0.04) ng/mL Serum Total Protein (6.4-8.9) g/dL Albumin (3.5-5.7) g/dL Globulin (2.4-3.5) g/dL Albumin/Globulin Ratio (1.1-2.2) Lipase 32 (11-82) Units/L Urine Color Dark Yellow (Yellow) Urine Clarity Cloudy A (Clear) Urine pH 7.0 (5.0-8.0) pH Units Ur Specific [place] 1.024 (1.010-1.025) Urine Protein Trace (Neg-Trace) mg/dL Urine Glucose (UA) Normal (Normal) mg/dL Urine Ketones Trace H (Negative) mg/dL Urine Blood Large H (Negative) Urine Nitrite Negative (Negative) Urine Bilirubin Small H (Negative) Urine Urobilinogen 2.0 H (Normal) mg/dL Ur Leukocyte Esterase Trace H (Negative) Urine Microscopic RBC TNTC H (0-3) per hpf Urine Microscopic WBC 0-3 (0-3) per hpf Ur Squamous Epith Cells None Seen (None-Few) per lpf Urine Bacteria None Seen (None-Few) per hpf Hyaline Casts None Seen (None-Few) per lpf Ur Culture Indicated? YES A (NO) - Radiology Data Radiology results reviewed: Yes I reviewed the patient's radiology results. Abdomen/Pelvis CT 08/12/17 13:52 IMPRESSION: 1. No acute intra-abdominal process identified. 2. Hepatic cirrhosis, splenomegaly and esophageal varices. D/ / Bert Sorensen MD / Bert Sorensen MD Interpreting Provider: Bert Sorensen MD - EKG Data EKG attestation: Yes I reviewed and interpreted this EKG. EKG results narrative: Heart rate 68 bpm. Normal sinus rhythm. No ST elevation or ST depression noted. No acute changes noted.
[2017-08-12 14:11] LABS: Bilirubin,Urine Small (Negative); Blood,Urine Large (Negative); Clarity,Urine Cloudy (Clear); Color,Urine Dark Yellow (Yellow); Glucose,Urine (UA) Normal (Normal); Ketones,Urine Trace mg/dL (Negative); Leukocyte Esterase,Urine Trace (Negative); Nitrite,Urine Negative (Negative); Protein,Urine Trace mg/dL (Neg-Trace); Specific Gravity,Urine 1.024 (1.010-1.025)
[2017-08-12 14:15] LABS: Bacteria,Urine None Seen per hpf (None-Few); Hyaline Casts,Urine None Seen per lpf (None-Few); RBC,Urine TNTC per hpf (0-3); Squamous Epithelial Cell,Urine None Seen per lpf (None-Few); WBC,Urine 0-3 per hpf (0-3)
[2017-08-12 14:15] LABS: Basophils # 0.1 K/mcL (0.0-0.2); Basophils % 1.1 %; Eosinophils # 0.2 K/mcL (0.0-0.6); Eosinophils % 3.1 %; Hematocrit 40.7 % (37.5-50.1); Hemoglobin 14.1 g/dL (12.9-16.9); Immature Granulocytes % 0.2 % (0-4); Lymphocytes # 1.7 K/mcL (0.6-4.6); Lymphocytes % 31.7 %; Mean Corpuscular HGB Conc 34.6 g/dL (31.6-35.5); Mean Corpuscular Hemoglobin 34.6 pg (28.0-33.3); Mean Corpuscular Volume 99.8 fL (83.0-100.0); Mean Platelet Volume 10.1 fL (9.4-12.4); Monocytes # 0.5 K/mcL (0.0-1.3); Monocytes % 8.7 %; Platelet Count 100 K/mcL (140-400); Red Blood Count 4.08 M/mcL (4.19-5.50); Red Cell Distribution Width 14.6 % (11.5-14.5); Segmented Neutrophils % 55.2 %
[2017-08-12 14:18] LABS: INR 1.4; Prothrombin Time 15.3 Seconds (9.4-12.1)
[2017-08-12 14:20] LABS: Activated Partial Thrombo Time 36.2 Seconds (26.0-36.0)
[2017-08-12 14:31] LABS: Troponin I < 0.03 ng/mL (< 0.04)
--- NOTE | 2017-08-12 14:45 | Emergency Department Note ---
START Narrative - START START: I examined this patient and my medical decision-making was reviewed with the Resident Physician. I agree with the documented findings, disposition and treatment plan as described except to the extent set forth below. 51 year old male prsentes to the eD with complaints of abdominal pain and some fluid collection on his abdomen. He has a history of anti-tyrpsin 1 def and states that he was recently diagnosd and has been taking lactulose for his elevations in ammonia and today feels slightly more conused although he is holding a conversation and following commands appropiatley. We will ldo a ABCT and abdominal labs. Ammonia is 74, lthough elevalted is the lowest he has been.
[2017-08-12 14:57] LABS: Alanine Aminotransferase 61 Units/L (7-52); Albumin 3.2 g/dL (3.5-5.7); Albumin/Globulin Ratio 0.7 (1.1-2.2); Alkaline Phosphatase 135 Units/L (34-104); Aspartate Amino Transferase 106 Units/L (13-39); BUN/Creatinine Ratio 12 (6-26); Bilirubin,Direct 0.9 mg/dL (0.0-0.2); Bilirubin,Indirect 1.5 mg/dL (0.0-1.2); Bilirubin,Total 2.4 mg/dL (0.3-1.0); Blood Urea Nitrogen 8 mg/dL (6-20); Calcium 9.1 mg/dL (8.6-10.3); Carbon Dioxide 25 mEq/L (23-29); Chloride 105 mEq/L (98-107); Globulin 4.4 g/dL (2.4-3.5); Glucose 157 mg/dL (70-105); Osmolality,Calculated 282 (280-300); Potassium 3.8 mEq/L (3.5-5.1); Sodium 135 mEq/L (136-145); Total Protein 7.6 g/dL (6.4-8.9); eGFR For African Americans > 60 (> 60); eGFR For Non-African Americans > 60 (> 60)
[2017-08-12] MEDS ORDERED: Ibuprofen 600 MG TABLET PO ONE (15:19)
[2017-08-12] MEDS ORDERED: Naloxone 0.4 MG/ML INJ IVP PRN (16:39)
--- NOTE | 2017-08-12 16:44 | Internal Med History&Physical ---
Date of Encounter: 08/12/17 Time of Encounter: 16:42 Assessment and Plan (1) Hepatic encephalopathy Current visit: Yes Status: Acute Improving Increased dose of lactulose up to 20 g 3 times a day instead of twice a day Fall precautions Protonix for GI prophylaxis due to history of erosive gastritis, sequential compression devices for DVT prophylaxis. The patient will be admitted for observation. Full code. Time spent on this admission 40 minutes (2) Abdominal pain Current visit: Yes Status: Acute Unclear etiology Consider possible portal vein thrombosis CT scan of the abdomen showed: 1. No acute intra-abdominal process identified. 2. Hepatic cirrhosis, splenomegaly and esophageal varices. Qualifiers: Abdominal location: generalized Qualified Code(s): R10.84 - Generalized abdominal pain (3) Cirrhosis of liver Current visit: Yes Status: Acute Secondary to alpha-1 antitrypsin Qualifiers: Hepatic cirrhosis type: unspecified hepatic cirrhosis Ascites presence: without ascites Qualified Code(s): K74.60 - Unspecified cirrhosis of liver (4) Hyperammonemia Current visit: Yes Status: Acute (5) Esophageal varices Current visit: No Status: Acute Qualifiers: Esophageal varices type: unspecified type Esophageal varices bleeding: without bleeding Qualified Code(s): I85.00 - Esophageal varices without bleeding (6) Hypertension Current visit: No Status: Acute nadolol Qualifiers: Hypertension type: essential hypertension Qualified Code(s): I10 - Essential (primary) hypertension (7) Thrombocytopenia Current visit: No Status: Acute Due to cirrhosis Internal Medicine - H&P: HPI Chief complaint: Abdominal pain and confusion Admitted From: Emergency Dept History of present illness: Mr. 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 CT scan of the abdomen showed hepatic cirrhosis esophageal varices, the patient has been having the left upper quadrant abdominal pain and swelling. The pain is sharp and out of 10 in intensity. His ammonia level was 76, INR was 1.4 bilirubin is 2.4 indirect bilirubin is 1.5. Denies any dysuria , no other complaints Past Med Surg Social Fam HX - Past Medical History Medical history: cirrhosis (From alpha-1 antitrypsin), hypertension, other ( Acute pancreatitis, esophageal varices, thrombocytopenia, pancytopenia, erosive gastropathy, portal hypertension gastropathy) Psychiatric history: no psych history - Past Surgical History Surgical History: other (Left carpal tunnel surgery, vocal cord nodule excision , left knee arthroscopy) - Social History Smoking Status: Never smoker Smokeless Tobacco Status: No Alcohol use: none Drug use: none - Additional Family History Additional family history: Maternal grandmother with colon cancer, mother with cirrhosis Internal Medicine - H&P: Meds Furosemide [Lasix] 20 mg PO DAILY 07/24/17 [History] Lactulose 20 gm PO BID 07/24/17 [History] Omeprazole [PriLOSEC] 40 mg PO DAILY 07/24/17 [History] Rifaximin [Xifaxan] 550 mg PO BID 07/24/17 [History] Spironolactone [Aldactone] 50 mg PO DAILY 07/24/17 [History] Multivitamin [One Daily Multivitamin] 1 each PO DAILY 08/12/17 [History] Nadolol [Corgard] 40 mg PO DAILY 08/12/17 [History] 3 Allergy/AdvReac Type Severity Reaction Status Date / Time No Known Allergies Allergy Verified 08/12/17 13:43 All Systems PM: A 10-system review of systems was performed and is negative for pertinent findings except as documented above in the HPI. Review of systems: No chest pain, shortness of breath, no fever, other systems out of the 10 reviewed were negative - Constitutional Vitals: Temp Pulse Resp BP Pulse Ox 98.1 F 77 16 115/72 97 08/12/17 16:10 08/12/17 16:10 08/12/17 16:10 08/12/17 16:10 08/12/17 16:10 General appearance: Present: A&O X 3, morbidly obese - Head Head exam: Present: atraumatic, normocephalic - Eye Eye exam: Present: PERRL, conjuntiva pink, sclera anicteric Pupils: Present: PERRL - Neck Neck exam general surgery: Present: supple, trachea midline. Absent: lymphadenopathy - Respiratory Respiratory exam: Present: CTAB. Absent: accessory muscle use, rales, rhonchi, wheezes - Cardiovascular Cardiovascular exam: Present: RRR, +S1, +S2. Absent: diastolic murmur, gallop, rubs, systolic murmur - GI/Abdominal GI/Abdominal exam: Present: distended, normal bowel sounds, soft, no peritoneal signs. Absent: tenderness Additional comments: Distended abdomen, swelling of left upper abdomen, tenderness - Extremities Exam Extremities exam: Present: warm, radial pulses palpable and symmetrical. Absent : calf tenderness, cyanotic, pedal edema - Neurological Exam Neurological exam: Present: CN II-XII intact, oriented X3, no focal deficits. Absent: pronater drift, facial droop, speech deficit - Skin Skin exam: Present: dry, intact Internal Med - H&P Results - Labs CBC & Chem 7: 08/12/17 13:47 08/12/17 13:47
[2017-08-12] MEDS ORDERED: 0.9 % Sodium Chloride 1,000 ML IVC SCH (16:45)
[2017-08-12] MEDS: Lactulose Oral Soln 20 GM/30 ML UDC PO SCH ×2 (17:59→20:17)
[2017-08-12] MEDS: Pantoprazole 40 MG VIAL IVP SCH (17:59)
[2017-08-12] MEDS: *HR* OxyCODONE Immed Rel 5 MG TABLET PO PRN (20:19)
[2017-08-12] MEDS: *HR* HYDROcodone/Acet 5/325 mg TABLET PO PRN (23:03)
[2017-08-13] MEDS: *HR* OxyCODONE Immed Rel 5 MG TABLET PO PRN (04:30)
[2017-08-13 07:16] VITALS: BP 116/62
[2017-08-13 07:17] LABS: Alanine Aminotransferase 55 Units/L (7-52); Albumin 2.9 g/dL (3.5-5.7); Albumin/Globulin Ratio 0.7 (1.1-2.2); Alkaline Phosphatase 131 Units/L (34-104); Aspartate Amino Transferase 95 Units/L (13-39); BUN/Creatinine Ratio 15 (6-26); Bilirubin,Total 1.6 mg/dL (0.3-1.0); Blood Urea Nitrogen 10 mg/dL (6-20); Calcium 8.5 mg/dL (8.6-10.3); Carbon Dioxide 24 mEq/L (23-29); Chloride 108 mEq/L (98-107); Glucose 111 mg/dL (70-105); Osmolality,Calculated 282 (280-300); Potassium 4.2 mEq/L (3.5-5.1); Sodium 136 mEq/L (136-145); Total Protein 6.9 g/dL (6.4-8.9); eGFR For African Americans > 60 (> 60); eGFR For Non-African Americans > 60 (> 60)
--- NOTE | 2017-08-13 08:04 | Discharge Summary ---
- NOTES TO OUTPATIENT PROVIDER Notes to Outpatient Provider: Ct of the hest in 1 year due to lung nodules, MRI of the abdomen due to hypodense lesions found in the liver. Review final urine culture report Date of Encounter: 08/13/17 Time of Encounter: 08:01 - Discharge Diagnosis (1) Hepatic encephalopathy Priority: Primary Status: Acute (2) UTI (urinary tract infection) Priority: Primary Status: Acute Comments: Also possible metabolic encephalopathy likely secondary to UTI Qualifiers: Urinary tract infection type: acute cystitis Hematuria presence: with hematuria Qualified Code(s): N30.01 - Acute cystitis with hematuria (3) Abdominal pain Priority: Secondary Status: Acute Qualifiers: Abdominal location: generalized Qualified Code(s): R10.84 - Generalized abdominal pain (4) Cirrhosis of liver Priority: Secondary Status: Acute Qualifiers: Hepatic cirrhosis type: unspecified hepatic cirrhosis Ascites presence: without ascites Qualified Code(s): K74.60 - Unspecified cirrhosis of liver (5) Hyperammonemia Priority: Secondary Status: Acute (6) Esophageal varices Priority: Secondary Status: Acute Qualifiers: Esophageal varices type: unspecified type Esophageal varices bleeding: without bleeding Qualified Code(s): I85.00 - Esophageal varices without bleeding (7) Hypertension Priority: Secondary Status: Acute Qualifiers: Hypertension type: essential hypertension Qualified Code(s): I10 - Essential (primary) hypertension (8) Thrombocytopenia Priority: Secondary Status: Acute Hospital course: Mr. 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 CT scan of the abdomen showed hepatic cirrhosis esophageal varices, the patient had been having the left upper quadrant abdominal pain and swelling. The pain was sharp and out of 10 in intensity. His ammonia level was 76, INR was 1.4 bilirubin was 2.4 indirect bilirubin was 1.5. He went for second CT scan with venous contrast that showed:1. No definite acute findings in the abdomen. Specifically, no findings of portal venous thrombosis. 2. Areas of stranding adjacent to the origins of the mesenteric arteries and in the right anterior pararenal space, potentially edema or inflammation. 3. Cirrhotic liver. Hypodense lesions measuring up to 0.6 cm x 0.5 cm are noted as above. While potentially cysts, hemangiomas, regenerating nodules, or dysplastic nodules, early hepatocellular carcinoma is not excluded. Recommend further evaluation with liver protocol MRI on a nonemergent basis. 4. Findings of portal hypertension, including moderate splenomegaly, dilation of main portal vein, and multiple venous collaterals. 5. Solid nodules measuring up to 0.4 cm in the right middle and bilateral lower lobes. Benign sequelae of an infectious or inflammatory process are considered most likely. Consider follow-up chest CT in 1 year as below if the patient is clinically considered to be at increased risk for developing lung cancer. The patient's lactulose was increased to 3 times a day, LFTs trended down. The patient is feeling much better, was started on ciprofloxacin, urine culture is a still pending, he was given the option to stay another day and wait for the culture but prefers to be discharged at this point as he is stable and back to baseline. - Time Spent with Patient Total time spent providing and/or coordinating discharge services: Greater than 30 minutes (40 min) - Discharge Medications Prescriptions: Ciprofloxacin [Cipro] 500 mg PO BID #10 tablet Lactulose 20 gm PO TID 30 Days [facility] [place] Medications: Furosemide [Lasix] 20 mg PO DAILY 07/24/17 [History] Omeprazole [PriLOSEC] 40 mg PO DAILY 07/24/17 [History] Rifaximin [Xifaxan] 550 mg PO BID 07/24/17 [History] Spironolactone [Aldactone] 50 mg PO DAILY 07/24/17 [History] Multivitamin [One Daily Multivitamin] 1 each PO DAILY 08/12/17 [History] Nadolol [Corgard] 40 mg PO DAILY 08/12/17 [History] Ciprofloxacin [Cipro] 500 mg PO BID #10 tablet 08/13/17 [Rx] Lactulose 20 gm PO TID 30 Days [facility] [place] 08/13/17 [Rx] Allergies/Adverse Reactions: 3 Allergy/AdvReac Type Severity Reaction Status Date / Time No Known Allergies Allergy Verified 08/12/17 13:43 Date of admission: 08/12/17 15:43 Primary care physician: Marichuy Fisher CNP - Constitutional Vitals: Temp Pulse Resp BP Pulse Ox 98.1 F 63 18 116/62 94 08/13/17 07:15 08/13/17 07:15 08/13/17 07:15 08/13/17 07:15 08/13/17 07:15 General appearance: Present: A&O X 3, morbidly obese Exam: - Head Head exam: Present: atraumatic, normocephalic - Eye Eye exam: Present: PERRL, conjuntiva pink, sclera anicteric Pupils: Present: PERRL - Neck Neck exam general surgery: Present: supple, trachea midline. Absent: lymphadenopathy - Respiratory Respiratory exam: Present: CTAB. Absent: accessory muscle use, rales, rhonchi, wheezes - Cardiovascular Cardiovascular exam: Present: RRR, +S1, +S2. Absent: diastolic murmur, gallop, rubs, systolic murmur - GI/Abdominal GI/Abdominal exam: Present: distended, normal bowel sounds, soft, no peritoneal signs. Absent: tenderness Additional comments: Distended abdomen, swelling of left upper abdomen, tenderness - Extremities Exam Extremities exam: Present: warm, radial pulses palpable and symmetrical. Absent : calf tenderness, cyanotic, pedal edema - Neurological Exam Neurological exam: Present: CN II-XII intact, oriented X3, no focal deficits. Absent: pronater drift, facial droop, speech deficit - Skin Skin exam: Present: dry, intact - Patient Status Disposition: Home, Self-Care Condition: Good Overall status at discharge: patient is back to baseline - Discharge Instructions Follow Up With: Marichuy Fisher CNP [Primary Care Provider] - Additional Instructions: Follow-up with primary care physician within the next 7 days. Continue ciprofloxacin for 5 days. Increase lactulose up to 20 g 3 times a day. Can arrange with primary care physician future CT scan of the chest and MRI of the abdomen. May return to work on Thursday - Diet and Activity Activity: increase activity as tolerated Diet: low fat, low cholesterol
[2017-08-13] MEDS ORDERED: FLUARIX QUAD 2017-18 36MOS UP/PF 0.5 ML SYRINGE IM ONE (08:23)
[2017-08-13] MEDS: Lactulose Oral Soln 20 GM/30 ML UDC PO SCH (09:19)
[2017-08-13] MEDS: Pantoprazole 40 MG VIAL IVP SCH (09:20)
[2017-08-13] MEDS: *HR* HYDROcodone/Acet 5/325 mg TABLET PO PRN (09:21)
--- NOTE | 2017-08-13 22:25 | Electrocardiograph Report ---
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
== END 2017-08-13 09:53 | disposition home or self-care (01) ==
LOC: EMEROO 13:38 → 3BNU 13:38
PROVIDERS: ADMIT Internal Medicine; ATTEND Registered Nurse

== ENCOUNTER 2018-12-16 15:24 | Observation (INO) ==
--- NOTE | 2018-12-16 16:17 | Emergency Department Note ---
Disposition Clinical Impression: Delirium, Hyperammonemia Disposition: Admitted As Inpatient Condition: Fair Referrals: Daphnie Calvillo CNP [Primary Care Provider] - Forms: ED Satisfaction Letter Time of Disposition: 19:09 General Adult HPI - General Chief complaint: ED Neuro Symptoms/Deficit Stated complaint: Slurred speech Time Seen by Provider: 12/16/18 15:45 Source: patient, family Mode of arrival: other Limitations: no limitations Nursing Notes Reviewed: Yes Vital Signs Reviewed: Yes - History of Present Illness HPI Narrative: 53-year-old male with a past medical history of diabetes, cirrhosis from alpha-1 antitrypsin deficiency that presents with 2 days of slurred speech. Patient was seen at his librarian assistant today who sent him over here for further evaluation. at bedside states that his speech gets slurred when his ammonia level is high. Patient has had very similar symptoms with high ammonia levels in the past. Patient is alert and oriented to place, day, name struggled with his birthdate. Patient is complaining of some abdominal pain, constipation, confusion, slurred speech. Pain Scale: 8 - Related Data Home Medications Medication Instructions Recorded Confirmed Rifaximin [Xifaxan] 550 mg PO BID 07/24/17 12/04/18 Multivitamin [One Daily 1 each PO DAILY 08/12/17 12/04/18 Multivitamin] Atorvastatin Calcium [Lipitor] 20 mg PO DAILY 09/04/18 12/04/18 Escitalopram [Lexapro] 10 mg PO DAILY 09/04/18 12/04/18 Lactulose [Enulose] 60 gm PO TID 09/04/18 12/04/18 Pantoprazole Sodium [Protonix] 40 mg PO BID 09/04/18 12/04/18 Zinc Gluconate 100 mg PO BID 09/04/18 12/04/18 Bumetanide 2 mg PO BID 12/04/18 12/04/18 Spironolactone [Aldactone] 150 mg PO BID 12/04/18 12/04/18 Previous Rx's Medication Instructions Recorded Ferrous Sulfate 325 mg PO DAILY #30 tablet 09/06/18 Glimepiride [Amaryl] 2 mg PO 0800 #30 tablet 09/06/18 metFORMIN [Glucophage] 500 mg PO BIDWM #60 tablet 09/06/18 Allergies Allergy/AdvReac Type Severity Reaction Status Date / Time No Known Allergies Allergy Verified 09/22/18 12:03 Review of Systems: In addition to that documented in the HPI above, the additional ROS was obtained: Constitutional: Denies fevers or chills Eyes: Denies vision changes ENMT: Denies sore throat CV: Denies chest pain Resp: Denies SOB GI: Denies vomiting or diarrhea Reports abdominal pain, constipation : Denies painful urination MSK: Denies recent trauma Skin: Denies new rashes Neuro: Denies new numbness or tingling or weakness Reports slurred speech Past Medical History - Past Medical History Attestation: Yes The following information was validated with the patient. Medical history: Reports: cirrhosis, diabetes, GERD, hypertension, renal disease Surgical history: Reports: orthopedic, other, other Psychiatric history: Reports: depression - Social History Smoking Status: Never smoker Smokeless Tobacco Status: No Alcohol use: Reports: none Drug use: Reports: none Physical Exam General: A&O x 3 - name, place, day, struggled with his birthday and the president's name. No acute distress. Well developed, well nourished. Head: atraumatic, normocephalic. ENT: No conjunctival injection, no scleral icterus. PERRLA. EOMI. Oropharynx non-erythematous. mucous membranes moist. Neuro: No focal deficits, no speech deficit, no facial droop, mentating well. BUE/BLE Str 5/5. Fatmata UE/LE sensation intact. CN II-XII intact. Cerebellar testing with [id number] and [id number] intact. Cerebellar testing was slow, but intact. Pulm: Lungs CTAB A/P. No wheezes, rales, ronchi. Cardio: RRR no m/r/g. Chest not tender to palpation. Abd: Soft, non-distended, rounded. Normoactive bowel sounds. Non-tender to palpation. No guarding. Non rigid. Extremities: Radial pulses 2+ fatmata, dorsalis pedis/posterior tibialis 2+ fatmata. No LE edema. No cyanosis, clubbing. Skin: warm, dry, intact. No rashes. Psych: Appropriate mood and affect. Answers questions appropriately. Cooperative with exam. Course Vital Signs Temperature 98.3 F 12/16/18 15:38 Pulse Rate 91 12/16/18 15:38 Respiratory Rate 18 12/16/18 15:38 Blood Pressure 118/74 12/16/18 15:38 O2 Sat by Pulse Oximetry 97 12/16/18 15:38 Temperature 98.3 F 12/16/18 15:38 Pulse Rate 91 12/16/18 15:38 Respiratory Rate 18 12/16/18 15:38 Blood Pressure 118/74 12/16/18 15:38 O2 Sat by Pulse Oximetry 97 12/16/18 15:38 Oxygen Delivery Oxygen Delivery Room Air Medical Decision Making - MDM Narrative Medical decision making narrative: 53-year-old male that presents with concern for slurred speech since been going on for the last 2 days states that he gets these symptoms whenever his ammonia levels are high. We will check a CBC, BMP, LFTs, ammonia. 1653 hrs.: Patient's ammonia is elevated. We will get his CT and then admit. Chest X-Ray 12/16/18 15:54 IMPRESSION: No acute process. D/ / Duarte Branch MD / Duarte Branch MD Interpreting Provider: Duarte Branch MD Head CT 12/16/18 15:55 IMPRESSION: No acute intracranial abnormality. D/ / Rafa Grimaldo MD / Rafa Grimaldo MD Interpreting Provider: Rafa Grimaldo MD 1737 hrs.: CT shows no acute process. Were going to talk with hospitalist see if they want us to go ahead and do another dose of lactulose and then admit. Family is in agreement with plan. Impressions acute altered mental status with hyperammonemia. With history of same. 1914 hrs. we will go ahead and bring him into the hospital at this time. Hospitalist as accepted - Medical Records Medical records reviewed: Yes I reviewed the patient's medical records. - Lab Data Lab results reviewed: Yes I reviewed the patient's lab results. Result diagrams: 12/16/18 16:06 12/16/18 16:06 Lab Results 07/25/19 07/25/19 07/25/19 Range/Units 16:06 16:06 16:06 WBC 5.4 (4.3-11.1) K/mcL RBC 2.90 L (4.19-5.50) M/mcL Hgb 10.0 L (12.9-16.9) g/dL Hct 30.4 L (37.5-50.1) % MCV 104.8 H (83.0-100.0) fL MCH 34.5 H (28.0-33.3) pg MCHC 32.9 (31.6-35.5) g/dL RDW 16.5 H (11.5-14.5) % Plt Count 91 L (140-400) K/mcL MPV 10.0 (9.4-12.4) fL Immature Gran % 0.2 (0-4) % Seg Neutrophils % 59.2 % Lymphocytes % 18.6 % Monocytes % 12.4 % Eosinophils % 8.1 % Basophils % 1.5 % Neutrophils # 3.2 (1.6-8.9) K/mcL Lymphocytes # 1.0 (0.6-4.6) K/mcL Monocytes # 0.7 (0.0-1.3) K/mcL Eosinophils # 0.4 (0.0-0.6) K/mcL Basophils # 0.1 (0.0-0.2) K/mcL PT (9.4-12.1) Seconds INR APTT (26.0-36.0) Seconds Sodium 137 (136-145) mEq/L Potassium 4.3 (3.5-5.1) mEq/L Chloride 105 (98-107) mEq/L Carbon Dioxide 30 H (23-29) mEq/L BUN 14 (6-20) mg/dL Creatinine 0.76 (0.70-1.30) mg/dL Est GFR ( Amer) > 60 (> 60) Est GFR (Non-Af Amer) > 60 (> 60) BUN/Creatinine Ratio 18 (6-26) Glucose 187 H (70-105) mg/dL Calculated Osmolality 289 (280-300) Calcium 9.2 (8.6-10.3) mg/dL Total Bilirubin 1.3 H (0.3-1.0) mg/dL Direct Bilirubin 0.4 H (0.0-0.2) mg/dL Indirect Bilirubin 0.9 (0.0-1.2) mg/dL AST 71 H (13-39) Units/L ALT 59 H (7-52) Units/L Alkaline Phosphatase 133 H (34-104) Units/L Ammonia 153 H (16-53) mcmol/L Serum Total Protein 6.2 L (6.4-8.9) g/dL Albumin 3.0 L (3.5-5.7) g/dL Globulin 3.2 (2.4-3.5) g/dL Albumin/Globulin Ratio 0.9 L (1.1-2.2) 12/16/18 Range/Units 16:06 WBC (4.3-11.1) K/mcL RBC (4.19-5.50) M/mcL Hgb (12.9-16.9) g/dL Hct (37.5-50.1) % MCV (83.0-100.0) fL MCH (28.0-33.3) pg MCHC (31.6-35.5) g/dL RDW (11.5-14.5) % Plt Count (140-400) K/mcL MPV (9.4-12.4) fL Immature Gran % (0-4) % Seg Neutrophils % % Lymphocytes % % Monocytes % % Eosinophils % % Basophils % % Neutrophils # (1.6-8.9) K/mcL Lymphocytes # (0.6-4.6) K/mcL Monocytes # (0.0-1.3) K/mcL Eosinophils # (0.0-0.6) K/mcL Basophils # (0.0-0.2) K/mcL PT 14.3 H (9.4-12.1) Seconds INR 1.3 APTT 33.3 (26.0-36.0) Seconds Sodium (136-145) mEq/L Potassium (3.5-5.1) mEq/L Chloride (98-107) mEq/L Carbon Dioxide (23-29) mEq/L BUN (6-20) mg/dL Creatinine (0.70-1.30) mg/dL Est GFR ( Amer) (> 60) Est GFR (Non-Af Amer) (> 60) BUN/Creatinine Ratio (6-26) Glucose (70-105) mg/dL Calculated Osmolality (280-300) Calcium (8.6-10.3) mg/dL Total Bilirubin (0.3-1.0) mg/dL Direct Bilirubin (0.0-0.2) mg/dL Indirect Bilirubin (0.0-1.2) mg/dL AST (13-39) Units/L ALT (7-52) Units/L Alkaline Phosphatase (34-104) Units/L Ammonia (16-53) mcmol/L Serum Total Protein (6.4-8.9) g/dL Albumin (3.5-5.7) g/dL Globulin (2.4-3.5) g/dL Albumin/Globulin Ratio (1.1-2.2) - Radiology Data Radiology results reviewed: Yes I reviewed the patient's radiology results. Chest X-Ray 12/16/18 15:54 IMPRESSION: No acute process. D/ / Duarte Branch MD / Duarte Branch MD Interpreting Provider: Duarte Branch MD Head CT 12/16/18 15:55 IMPRESSION: No acute intracranial abnormality. D/ / Rafa Grimaldo MD / Rafa Grimaldo MD Interpreting Provider: Rafa Grimaldo MD Attestation Statement - Attestation Attestation: This documentation is done with the assistance of Dragon dictation. Despite efforts made to ensure accuracy, there may be inaccuracies in payment analyst or spelling and typographical errors. I examined this patient and my medical decision-making was reviewed with the Resident Physician. I agree with the documented findings, disposition and treatment plan as described except to the extent set forth below. Patient was seen and evaluated by Dr. Nieto, I agree with their evaluation and management plan, I supervised care the patient's stay. Patient presents today with alteration in mental status. He has a history of cirrhosis. states is been on for at least 3 days. She said he is taking lactulose and the use he get s this way when his ammonia goes up. He knows he is, he knows he is in the hospital, he knows his but otherwise confused. He has had some slurring of speech was said is typical. No other focal deficits on exam were going to check an ammonia level check a head CT check labs and reassess. He is in agreement with plan is as .
[2018-12-16 16:19] LABS: Basophils # 0.1 K/mcL (0.0-0.2); Basophils % 1.5 %; Eosinophils # 0.4 K/mcL (0.0-0.6); Eosinophils % 8.1 %; Hematocrit 30.4 % (37.5-50.1); Immature Granulocytes % 0.2 % (0-4); Lymphocytes % 18.6 %; Mean Corpuscular HGB Conc 32.9 g/dL (31.6-35.5); Mean Corpuscular Hemoglobin 34.5 pg (28.0-33.3); Mean Corpuscular Volume 104.8 fL (83.0-100.0); Monocytes # 0.7 K/mcL (0.0-1.3); Monocytes % 12.4 %; Neutrophils # 3.2 K/mcL (1.6-8.9); Red Cell Distribution Width 16.5 % (11.5-14.5); Segmented Neutrophils % 59.2 %; White Blood Count 5.4 K/mcL (4.3-11.1)
[2018-12-16 16:20] LABS: Platelet Count 91 K/mcL (140-400)
[2018-12-16 16:30] LABS: INR 1.3; Prothrombin Time 14.3 Seconds (9.4-12.1)
[2018-12-16 16:32] LABS: Activated Partial Thrombo Time 33.3 Seconds (26.0-36.0)
[2018-12-16 16:44] LABS: Alanine Aminotransferase 59 Units/L (7-52); Albumin/Globulin Ratio 0.9 (1.1-2.2); Alkaline Phosphatase 133 Units/L (34-104); Aspartate Amino Transferase 71 Units/L (13-39); BUN/Creatinine Ratio 18 (6-26); Bilirubin,Direct 0.4 mg/dL (0.0-0.2); Bilirubin,Indirect 0.9 mg/dL (0.0-1.2); Bilirubin,Total 1.3 mg/dL (0.3-1.0); Blood Urea Nitrogen 14 mg/dL (6-20); Calcium 9.2 mg/dL (8.6-10.3); Carbon Dioxide 30 mEq/L (23-29); Chloride 105 mEq/L (98-107); Globulin 3.2 g/dL (2.4-3.5); Glucose 187 mg/dL (70-105); Osmolality,Calculated 289 (280-300); Potassium 4.3 mEq/L (3.5-5.1); Sodium 137 mEq/L (136-145); Total Protein 6.2 g/dL (6.4-8.9); eGFR For African Americans > 60 (> 60); eGFR For Non-African Americans > 60 (> 60)
[2018-12-16] MEDS ORDERED: Ondansetron ODT 4 MG TAB.RAPDIS SL ONE (17:09)
[2018-12-16] MEDS ORDERED: Lactulose Oral Soln 20 GM/30 ML UDC PO ONE (17:39)
[2018-12-16] MEDS ORDERED: *HR* Dextrose 50 % in Water (Syg) 50 ML SYRINGE IVP PRN (21:26)
[2018-12-16] MEDS ORDERED: Naloxone 0.4 MG/ML INJ IVP PRN (21:26)
[2018-12-16] MEDS ORDERED: Dextrose Gel 15 GM/37.5 ML TUBE PO PRN ×2 (21:26)
[2018-12-16] MEDS ORDERED: D5% in Water 1,000 ML IVC PRN (21:26)
[2018-12-16] MEDS ORDERED: Ondansetron 4 MG/2 ML VIAL IVP PRN (21:26)
--- NOTE | 2018-12-16 21:41 | Internal Med History&Physical ---
Date of Encounter: 12/16/18 Time of Encounter: 20:40 Internal Medicine - H&P: HPI Chief complaint: confusions, AMS Admitted From: Emergency Dept Plans for Post Hospital Care: Home History of present illness: Mr. Diaz is a 53 year old male who presents to the ER with complaints of confusion, altered mental status, and generalized weakness. 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 He was sent to ER by the nurse for evaluation and likely admission. Patient was recently hospitalized for hepatic encephalopathy and appears to have recurrence of symptoms. He was evaluated in the ER and found to have clinical findings consistent with encephalopathy. He was therefore admitted to hospitalist service. Upon my assessment of the patient, patient is now alert, oriented 3, and in no distress. However, he admits to being fatigued, admits to having periods of confusion, and also feeling weak. He states he has had vague subjective fevers and chills. He has had some vague abdominal pain and diarrhea. He denies any antibiotic use recently. He did have imaging of his abdomen several days ago which was negative for ascites. However, he has since developed diarrhea and vague abdominal pain. He does have some dysuria but denies any hematuria. Urinalysis was not performed the ER. He has been compliant with his medications. He does not drink any alcohol and never was a drinker of alcohol. 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 He follows with Dr. Karuna henley and with [facility] hepatology. He has type 2 diabetes and takes oral medications. He denies any bouts of hypoglycemia, however. Past Med Surg Social Fam HX - Past Medical History Attestation: Yes The following information was validated with the patient. Source: patient, old records reviewed Medical history: cirrhosis, diabetes, GERD, hypertension, renal disease Additional medical history: alpha one intryptysin defiency Psychiatric history: depression - Past Surgical History Surgical History: orthopedic, other, other Additional surgical history: carpal tunnel left. nodules vocal cords. left knee - Social History Smoking Status: Never smoker Smokeless Tobacco Status: No Alcohol use: none Drug use: none Current living situation: Home, With Family Activity Level: Independent ambulation Recent Out of Country Travel Within the Last 8 Weeks: No - Family History Mother Living Status: Hx Family Cardiac Disorders: No Hx Family Respiratory Disorders: No Hx Family Cancer: Yes Hx Family Endocrine Disorder: Yes Internal Medicine - H&P: Meds Rifaximin [Xifaxan] 550 mg PO BID 07/24/17 [History] Multivitamin [One Daily Multivitamin] 1 each PO DAILY 08/12/17 [History] Atorvastatin Calcium [Lipitor] 20 mg PO DAILY 09/04/18 [History] Escitalopram [Lexapro] 10 mg PO DAILY 09/04/18 [History] Lactulose [Enulose] 60 gm PO TID 09/04/18 [History] Pantoprazole Sodium [Protonix] 40 mg PO BID 09/04/18 [History] Zinc Gluconate 100 mg PO BID 09/04/18 [History] Ferrous Sulfate 325 mg PO DAILY #30 tablet 09/06/18 [Rx] Glimepiride [Amaryl] 2 mg PO 0800 #30 tablet 09/06/18 [Rx] metFORMIN [Glucophage] 500 mg PO BIDWM #60 tablet 09/06/18 [Rx] Bumetanide 2 mg PO BID 12/04/18 [History] Spironolactone [Aldactone] 150 mg PO BID 12/04/18 [History] Ascorbate Calcium [Vitamin C] 500 mg PO DAILY 12/16/18 [History] Melatonin [Melatin] 3 mg PO QPM 12/16/18 [History] Allergy/AdvReac Type Severity Reaction Status Date / Time No Known Allergies Allergy Verified 09/22/18 12:03 - Constitutional Constitutional: chills, fever(s), weakness, no night sweats - EENT Eyes: no blurry vision, no change in vision Ears: no ear pain, no tinnitus Nose, mouth and throat: no nasal congestion, no sinus pressure, no sore throat - Cardiovascular Cardiovascular ROS IM: no chest pain, no dyspnea, no dyspnea on exertion, no orthopnea, no paroxysmal nocturnal dyspnea - Respiratory Respiratory: no cough, no dyspnea, no chest congestion, no excessive phlegm production - Gastrointestinal Gastrointestinal: abdominal pain, diarrhea, nausea, no coffee ground emesis, no hematemesis, no hematochezia, no melena, no vomiting - Genitourinary Genitourinary ROS male: dysuria, no flank pain, no hematuria - Musculoskeletal Musculoskeletal ROS IM: no arthralgias, no back pain - Integumentary Integumentary IM: no rash, no jaundice - Neurological Neurological ROS: dizziness, no focal weakness, no frequent falls, no headache(s), no numbness - Psychiatric Psychiatric: no anxiety, no depression - Endocrine Endocrine IM: no cold intolerance, no heat intolerance, no polydipsia, no polyphagia, no polyuria - Allergic/Immunologic Allergic/Immunologic: no GI upset with certain foods - Constitutional Vitals: Temp Pulse Resp BP Pulse Ox 99.5 F 89 16 118/72 98 12/16/18 20:28 12/16/18 20:28 12/16/18 20:28 12/16/18 20:28 12/16/18 20:28 General appearance: Present: cooperative, A&O X 3, morbidly obese, pleasant, answers questions appropriately Exam: slow to respond but appropriate; generalized weakness. - Head Head exam: Present: atraumatic, normal inspection - Eye Eye exam: Present: EOMI, PERRL. Absent: scleral icterus Pupils: Present: normal accommodation - ENT ENT exam: Present: mucous membranes dry, normal exam, normal oropharynx - Neck Neck exam general surgery: Present: full ROM, supple, trachea midline. Absent: tenderness, nuchal rigidity, thyromegaly - Respiratory Respiratory exam: Present: CTAB. Absent: chest wall tenderness, rales, rhonchi, wheezes - Cardiovascular Cardiovascular exam: Present: distant heart sounds, RRR, +S1, +S2. Absent: diastolic murmur, systolic murmur - GI/Abdominal GI/Abdominal exam: Present: normal bowel sounds, soft, tenderness (diffuse, non- specific), no peritoneal signs. Absent: guarding, mass, rebound - Extremities Exam Extremities exam: Present: full ROM, normal capillary refill, pedal edema (trace), warm, radial pulses palpable and symmetrical. Absent: calf tenderness, joint swelling, tenderness - Back Exam Back exam: Absent: CVA tenderness (L), CVA tenderness (R) - Neurological Exam Neurological exam: Present: alert, CN II-XII intact, oriented X3, no focal deficits, strengths equal and symetr throughout. Absent: motor sensory deficit - Psychiatric Psychiatric exam: Present: normal affect, normal mood - Skin Skin exam: Present: dry, intact, warm Internal Med - H&P Results - Labs CBC & Chem 7: 12/16/18 16:06 12/16/18 16:06 Labs: Short CBC 12/16/18 Range/Units 16:06 WBC 5.4 (4.3-11.1) K/mcL Hgb 10.0 L (12.9-16.9) g/dL Hct 30.4 L (37.5-50.1) % Plt Count 91 L (140-400) K/mcL Neutrophils # 3.2 (1.6-8.9) K/mcL BMP 12/16/18 16:06 Sodium 137 Potassium 4.3 Chloride 105 Carbon Dioxide 30 H BUN 14 Creatinine 0.76 Glucose 187 H Calcium 9.2 Liver Function 12/16/18 Range/Units 16:06 Total Bilirubin 1.3 H (0.3-1.0) mg/dL Direct Bilirubin 0.4 H (0.0-0.2) mg/dL AST 71 H (13-39) Units/L ALT 59 H (7-52) Units/L Alkaline Phosphatase 133 H (34-104) Units/L Albumin 3.0 L (3.5-5.7) g/dL - Impressions ITS Impressions Chest X-Ray 12/16/18 15:54 IMPRESSION: No acute process. D/ / Duarte Branch MD / Duarte Branch MD Interpreting Provider: Duarte Branch MD Head CT 12/16/18 15:55 IMPRESSION: No acute intracranial abnormality. D/ / Rafa Grimaldo MD / Rafa Grimaldo MD Interpreting Provider: Rafa Grimaldo MD - Assessment and Plan (1) Hepatic encephalopathy Current Visit: Yes Status: Acute Assessment and plan: 1. Will continue home meds and increase Lactulose frequency. 2. Will order U/A C&S, blood cultures, and stool cultures to assess for infectious etiology for hepatic encephalopathy. 3. Will trend LFT's and Ammonia levels. 4. Consult GI if not improving clinically. (2) Cirrhosis of liver Current Visit: Yes Status: Chronic Assessment and plan: 1. Patient follows with Dr. Beckman and with [facility]. 2. No recent history of GI bleeding. 3. Monitor clinically. Qualifiers: Hepatic cirrhosis type: unspecified hepatic cirrhosis Ascites presence: with ascites Qualified Code(s): K74.60 - Unspecified cirrhosis of liver; R18.8 - Other ascites (3) DM type 2 (diabetes mellitus, type 2) Current Visit: Yes Status: Chronic Assessment and plan: 1. Hold oral home diabetic med. 2. Will order SSI and monitor glucose closely. 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 EPCD's.
[2018-12-16] MEDS: Lactulose Oral Soln 20 GM/30 ML UDC PO SCH (22:18)
[2018-12-16 22:46] LABS: Estimated Average Glucose 123 mg/dl
[2018-12-16 23:48] LABS: Bilirubin,Urine Small (Negative); Blood,Urine Negative (Negative); Clarity,Urine Clear (Clear); Color,Urine Dark Yellow (Yellow); Glucose,Urine (UA) Normal (Normal); Ketones,Urine Negative (Negative); Leukocyte Esterase,Urine Negative (Negative); Nitrite,Urine Negative (Negative); PH,Urine 6.5 pH Units (5.0-8.0); Protein,Urine Trace mg/dL (Neg-Trace); Specific Gravity,Urine 1.027 (1.010-1.025)
[2018-12-17 06:45] LABS: Basophils # 0.1 K/mcL (0.0-0.2); Basophils % 1.1 %; Eosinophils # 0.3 K/mcL (0.0-0.6); Eosinophils % 6.9 %; Hematocrit 30.3 % (37.5-50.1); Hemoglobin 9.9 g/dL (12.9-16.9); Immature Granulocytes % 0.4 % (0-4); Lymphocytes # 1.1 K/mcL (0.6-4.6); Lymphocytes % 23.3 %; Mean Corpuscular HGB Conc 32.7 g/dL (31.6-35.5); Mean Corpuscular Hemoglobin 34.7 pg (28.0-33.3); Mean Corpuscular Volume 106.3 fL (83.0-100.0); Mean Platelet Volume 9.7 fL (9.4-12.4); Monocytes # 0.5 K/mcL (0.0-1.3); Monocytes % 11.2 %; Neutrophils # 2.6 K/mcL (1.6-8.9); Red Blood Count 2.85 M/mcL (4.19-5.50); Red Cell Distribution Width 16.5 % (11.5-14.5); Segmented Neutrophils % 57.1 %; White Blood Count 4.6 K/mcL (4.3-11.1)
[2018-12-17 06:47] LABS: Platelet Count 82 K/mcL (140-400)
[2018-12-17 06:53] LABS: INR 1.3; Prothrombin Time 15.2 Seconds (9.4-12.1)
[2018-12-17 06:55] LABS: Activated Partial Thrombo Time 34.5 Seconds (26.0-36.0)
[2018-12-17 07:05] LABS: Alanine Aminotransferase 62 Units/L (7-52); Albumin 2.9 g/dL (3.5-5.7); Albumin/Globulin Ratio 0.9 (1.1-2.2); Alkaline Phosphatase 134 Units/L (34-104); Aspartate Amino Transferase 78 Units/L (13-39); BUN/Creatinine Ratio 15 (6-26); Bilirubin,Direct 0.5 mg/dL (0.0-0.2); Bilirubin,Indirect 1.1 mg/dL (0.0-1.2); Bilirubin,Total 1.6 mg/dL (0.3-1.0); Blood Urea Nitrogen 12 mg/dL (6-20); Calcium 9.3 mg/dL (8.6-10.3); Carbon Dioxide 26 mEq/L (23-29); Chloride 105 mEq/L (98-107); Globulin 3.3 g/dL (2.4-3.5); Glucose 177 mg/dL (70-105); Magnesium 1.9 mg/dL (1.6-2.6); Osmolality,Calculated 284 (280-300); Phosphorous 3.3 mg/dL (2.7-4.5); Potassium 3.8 mEq/L (3.5-5.1); Sodium 135 mEq/L (136-145); Total Protein 6.2 g/dL (6.4-8.9); eGFR For African Americans > 60 (> 60); eGFR For Non-African Americans > 60 (> 60)
[2018-12-17] MEDS: Multivit/Ca/Min/Fe/FA 1 TAB TABLET PO SCH (07:35)
[2018-12-17] MEDS: Ascorbic Acid 500 MG TABLET PO SCH (07:36)
[2018-12-17] MEDS: Zinc Sulfate 220 MG CAPSULE PO SCH (07:36)
[2018-12-17] MEDS: Lactulose Oral Soln 20 GM/30 ML UDC PO SCH ×4 (07:36→23:42)
[2018-12-17] MEDS: Insulin LISPRO 300 UNITS/3 ML VIAL SQ SCH ×3 (07:37→16:32)
[2018-12-17] MEDS ORDERED: Bumetanide 1 MG TABLET PO SCH (09:00)
[2018-12-17] MEDS ORDERED: metroNIDAZOLE 500 MG TABLET PO SCH (09:00)
[2018-12-17] MEDS: Bumetanide 1 MG TABLET PO SCH ×2 (09:26→16:37)
--- NOTE | 2018-12-17 14:03 | Internal Med Progress Note ---
Hospitalist Progress Note - Encounter Date of Encounter: 12/17/18 Time of Encounter: 14:01 - Subjective Interval History: I have seen and evaluated the patient at bedside. Patient reports he is feeling much better today. reported he had not had a bowel movement for about 10 days. denies chest pain, abdominal pain, nausea or vomiting. - Exam Vitals: Temp Pulse Resp BP Pulse Ox 97.7 F 85 16 151/81 99 12/17/18 12:27 12/17/18 12:27 12/17/18 12:27 12/17/18 12:27 12/17/18 12:27 Exam: Vitals: Reviewed General: Morbidly obese, Alert and oriented x3. In no distress Cardiovascular: RRR, normal S1 & S2, no rubs, murmurs or gallops. Lungs: CTA b/l, no wheezes or crackles. Abdomen: Obese, soft, non-tender, no rigidity. Extremities: No edema Neurological: Normal cognition and motor skills. Rest of the physical exam is non contributory - Assessment and Plan (1) Hepatic encephalopathy Current Visit: Yes Status: Acute Assessment and Plan: possible exacerbated by constipation? patient reported he did not have a bowel movement for about a week. No source of active infection identified. Abdo US: No evidence of significant ascites within the 4 quadrants of the abdomen Plan - continue lactulose, titrate for 2-3 BM a day. On rifaximin - Discontinue antibiotics. (2) Cirrhosis of liver Current Visit: Yes Status: Chronic Assessment and Plan: no abdominal ascites. continue home dose of bumex and spironolactone. (3) DM type 2 (diabetes mellitus, type 2) Current Visit: Yes Status: Chronic Assessment and Plan: blood sugar well controlled. patient on lispro medium dose sliding scale ac. levemir 5 units has added DVT Prophylaxis: Heparin SubQ - Summary of Assessment and Plan Summary of Assessment and Plan: Patient to remain in the hospital due to resolving hepatic encephalopathy - Time Spent with Patient Total time spent is greater than 50% in coordination of care (as documented) at patient's floor/unit and/or counseling patient: Greater than 35 minutes (40) Plan of Care Discussed with: patient (and the nurse.) Internal Medicine: Result - Labs CBC & Chem 7: 12/17/18 06:24 12/17/18 06:24 Labs: Short CBC 12/16/18 12/17/18 Range/Units 16:06 06:24 WBC 5.4 4.6 (4.3-11.1) K/mcL Hgb 10.0 L 9.9 L (12.9-16.9) g/dL Hct 30.4 L 30.3 L (37.5-50.1) % Plt Count 91 L 82 L (140-400) K/mcL Neutrophils # 3.2 2.6 (1.6-8.9) K/mcL BMP 12/16/18 12/17/18 16:06 06:24 Sodium 137 135 L Potassium 4.3 3.8 Chloride 105 105 Carbon Dioxide 30 H 26 BUN 14 12 Creatinine 0.76 0.81 Glucose 187 H 177 H Calcium 9.2 9.3 Liver Function 12/16/18 12/17/18 Range/Units 16:06 06:24 Total Bilirubin 1.3 H 1.6 H (0.3-1.0) mg/dL Direct Bilirubin 0.4 H 0.5 H (0.0-0.2) mg/dL AST 71 H 78 H (13-39) Units/L ALT 59 H 62 H (7-52) Units/L Alkaline Phosphatase 133 H 134 H (34-104) Units/L Albumin 3.0 L 2.9 L (3.5-5.7) g/dL Urine 12/16/18 Range/Units 23:25 Urine Color Dark Yellow (Yellow) Urine Clarity Clear (Clear) Urine pH 6.5 (5.0-8.0) pH Units Ur Specific [place] 1.027 H (1.010-1.025) Urine Protein Trace (Neg-Trace) mg/dL Urine Glucose (UA) Normal (Normal) mg/dL - ABG Interpretation ABG results: PT/INR, D-dimer PT 15.2 Seconds (9.4-12.1) H 12/17/18 06:24 - Impressions Impressions Chest X-Ray 12/16/18 15:54 IMPRESSION: No acute process. D/ / Duarte Branch MD / Duarte Branch MD Interpreting Provider: Duarte Branch MD Head CT 12/16/18 15:55 IMPRESSION: No acute intracranial abnormality. D/ / Rafa Grimaldo MD / Rafa Grimaldo MD Interpreting Provider: Rafa Grimaldo MD Abdomen Ultrasound 12/17/18 00:00 IMPRESSION: No evidence of significant ascites within the 4 quadrants of the abdomen D/ / Ronak Philip MD / Ronak Philip MD Interpreting Provider: oRnak Philip MD Consult Discharge Plan - Plan Referrals: Daphnie Calvillo CNP [Primary Care Provider] - (2) Cirrhosis of liver Qualifiers: Hepatic cirrhosis type: unspecified hepatic cirrhosis Ascites presence: with ascites Qualified Code(s): K74.60 - Unspecified cirrhosis of liver; R18.8 - Other ascites (3) DM type 2 (diabetes mellitus, type 2) Qualifiers: 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
--- NOTE | 2018-12-17 16:13 | Electrocardiograph Report ---
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
[2018-12-17] MEDS ORDERED: Insulin DETEMIR 100 UNIT/ML X5UNITS SQ SCH (21:00)
[2018-12-17] MEDS ORDERED: Melatonin 3 MG TABLET PO ONE (22:36)
[2018-12-17] MEDS: *HR* Heparin 5,000 UNIT/ML VIAL SQ SCH (23:42)
[2018-12-18] MEDS: *HR* Heparin 5,000 UNIT/ML VIAL SQ SCH (05:32)
[2018-12-18 07:15] VITALS: BP 109/55
[2018-12-18] MEDS: Insulin LISPRO 300 UNITS/3 ML VIAL SQ SCH (07:42)
[2018-12-18] MEDS: Lactulose Oral Soln 20 GM/30 ML UDC PO SCH (07:44)
[2018-12-18] MEDS: Ascorbic Acid 500 MG TABLET PO SCH (07:46)
[2018-12-18] MEDS: Multivit/Ca/Min/Fe/FA 1 TAB TABLET PO SCH (07:46)
[2018-12-18] MEDS: Bumetanide 1 MG TABLET PO SCH (07:46)
[2018-12-18] MEDS: Zinc Sulfate 220 MG CAPSULE PO SCH (07:46)
--- NOTE | 2018-12-18 10:24 | Discharge Summary ---
Orders not resulted at time of discharge: Pending orders 12/16/18 21:26 Culture,Stool [RM] Routine 12/16/18 22:12 Culture,Blood [BC] Stat Date of Encounter: 12/18/18 Time of Encounter: 10:21 - Discharge Diagnosis (1) Hepatic encephalopathy Priority: Primary Status: Resolved (2) Cirrhosis of liver Priority: Secondary Status: Chronic Qualifiers: Hepatic cirrhosis type: unspecified hepatic cirrhosis Ascites presence: with ascites Qualified Code(s): K74.60 - Unspecified cirrhosis of liver; R18.8 - Other ascites (3) DM type 2 (diabetes mellitus, type 2) Priority: Secondary Status: Chronic Qualifiers: Diabetes mellitus care home insulin use: without care home use Diabetes mellitus complication status: without complication Qualified Code(s): E11.9 - Type 2 diabetes mellitus without complications (4) Hyperammonemia Priority: Secondary Status: Resolved (5) Hypertension Priority: Secondary Status: Chronic Qualifiers: Hypertension type: essential hypertension Qualified Code(s): I10 - Essential (primary) hypertension Hospital course: Mr. Diaz is a 53 year old male PMH alpha one intryptysin defiency, cirrhosis, diabetes, GERD, hypertension. 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 Patient was found to have an ammonia level of 153. He reported that he has not had a bowel movement for about a week. Admitted to the hospital due to hepatic encephalopathy. Patient was managed with lactulose, rifaximin. His symptoms on presentation resolved after he started moving his bowels. Patient is hemodynamically stable and back to his baseline. He will be discharged home. Recommended to follow-up with his bulk driver and primary care physician within a week of hospital discharge. - Time Spent with Patient Total time spent providing and/or coordinating discharge services: Time spent: Greater than 30 minutes (35) - Discharge Medications Prescriptions: Continued Multivitamin [One Daily Multivitamin] 1 tab PO DAILY Ascorbate Calcium [Vitamin C] 500 mg PO QAM Melatonin [Melatin] 3 mg PO HS Glimepiride [Amaryl] 2 mg PO QAM Ondansetron ODT [Zofran ODT] 4 mg SL Q6H PRN PRN Reason: NAUSEA/VOMITING Lactulose [Enulose] 60 gm PO TID 30 Days #90 solution Rifaximin [Xifaxan] 550 mg PO BID 30 Days #60 tablet Pantoprazole Sodium [Protonix] 40 mg PO BID Zinc Gluconate 100 mg PO BID Atorvastatin Calcium [Lipitor] 20 mg PO DAILY Ferrous Sulfate 325 mg PO DAILY #30 tablet metFORMIN [Glucophage] 500 mg PO BIDWM #60 tablet Spironolactone [Aldactone] 150 mg PO BID Bumetanide 2 mg PO DAILY Home Medications: Multivitamin [One Daily Multivitamin] 1 tab PO DAILY 08/12/17 [History] Atorvastatin Calcium [Lipitor] 20 mg PO DAILY 09/04/18 [History] Pantoprazole Sodium [Protonix] 40 mg PO BID 09/04/18 [History] Zinc Gluconate 100 mg PO BID 09/04/18 [History] Ferrous Sulfate 325 mg PO DAILY #30 tablet 09/06/18 [Rx] metFORMIN [Glucophage] 500 mg PO BIDWM #60 tablet 09/06/18 [Rx] Bumetanide 2 mg PO DAILY 12/04/18 [History] Spironolactone [Aldactone] 150 mg PO BID 12/04/18 [History] Ascorbate Calcium [Vitamin C] 500 mg PO QAM 12/16/18 [History] Melatonin [Melatin] 3 mg PO HS 12/16/18 [History] Glimepiride [Amaryl] 2 mg PO QAM 12/17/18 [History] Ondansetron ODT [Zofran ODT] 4 mg SL Q6H PRN 12/17/18 [History] Lactulose [Enulose] 60 gm PO TID 30 Days #90 solution 12/18/18 [Rx] Rifaximin [Xifaxan] 550 mg PO BID 30 Days #60 tablet 12/18/18 [Rx] Allergies/Adverse Reactions: Allergy/AdvReac Type Severity Reaction Status Date / Time No Known Allergies Allergy Verified 12/17/18 18:36 Date of admission: 12/16/18 19:17 Primary care physician: Daphnie Calvillo CNP - Constitutional Vitals: Temp Pulse Resp BP Pulse Ox 98.1 F 90 22 109/55 98 12/18/18 07:09 12/18/18 07:09 12/18/18 07:09 12/18/18 07:09 12/18/18 07:09 General appearance: Present: cooperative, A&O X 3, morbidly obese, pleasant, answers questions appropriately Exam: Vitals: Reviewed. General: Morbidly obese, Alert and oriented x4. In no distress Cardiovascular: RRR, normal S1 & S2, no rubs, murmurs or gallops. Lungs: CTA b/l, no wheezes or crackles. Abdomen: Obese, soft, non-tender, no rigidity. NABS in all 4 quadrants Extremities: No edema Neurological: Normal cognition and motor skills. Rest of the physical exam is non contributory - Patient Status Disposition: Home, Self-Care Condition: Good Functional capacity at discharge: independent ambulation Overall status at discharge: patient is back to baseline - Discharge Instructions Follow Up With: Daphnie Calvillo, COAT ROOM ATTENDANT [Primary Care Provider] - - Diet and Activity Activity: resume usual activities as tolerated Diet: diabetic diet, low salt diet
== END 2018-12-18 11:03 | disposition home or self-care (01) ==
LOC: EMEROOARM 15:24 → 2ANU 15:24 → SUATTDRO 19:17 → 2ANU 20:10
PROVIDERS: ADMIT Family Medicine; ATTEND Internal Medicine

== ENCOUNTER 2019-01-19 14:51 | Observation (INO) ==
--- NOTE | 2019-01-19 18:15 | Internal Med History&Physical ---
<Bairon Thorne Regina - Last Filed: 01/19/19 20:48> Date of Encounter: 01/19/19 Time of Encounter: 18:54 Internal Medicine - H&P: HPI Chief complaint: Confusion Admitted From: Emergency Dept History of present illness: Mr. Diaz is a 53 year old male with past medical history of liver cirrhosis, type 2 diabetes, GERD, hypertension, renal disease, depression, and alpha 1 antitrypsin deficiency. He initially presented to the emergency department and [facility] earlier today complaining of generalized confusion. Patient reports this started this morning. Reports multiple previous similar episodes related to his cirrhosis. While at [facility] he was found to be afebrile, non- tachycardic, nontachypneic, blood pressure was 162/80, and oxygen saturation was normal. Initial labs from [place] revealed anemia with hemoglobin of 9.6, and thrombocytopenia with platelet count of 82. INR 1.4. Total bilirubin elevated at 1.8, AST 85, ALT 61, alkaline phosphatase 142, ammonia 84. Troponin was negative. Urinalysis showed elevated protein 30, trace ketones, small bilirubin, and moderate mucus. Urine drug screen was negative. Chest x-ray from the ED showed cardiomegaly and low lung volumes with no acute cardiopulmonary process. CT of the head demonstrated no acute intracranial abnormality. The patient was then transferred to [facility] for further management of hepatic encephalopathy. Patient seen and examined at bedside. Patient does report he is confused, but during the encounter he was able to answer all questions. He denies any recent illnesses, fever, chills, chest pain, shortness of breath, cough, increased sputum production, abdominal pain, constipation, headaches, numbness, or tingling. He does report some episodes of nausea and subsequent bilious emesis. However the patient does report that he believes he was able to take his medications without vomiting them back up. Patient does complain of swelling in his lower extremities with new noted blisterlike lesions on the right anterior leger and the left posterior calf. Patient reports that he did mow his lawn 2 days prior, but does not recall any poison paige in the lawn. Patient also states he never reacts to poison paige, stating "I could eat this stuff and still would not have a reaction". Patient also reports he saw Dr. Beckman earlier this week, and no changes were made to his medications at that time. Past Med Surg Social Fam HX - Past Medical History Attestation: Yes The following information was validated with the patient. Source: patient, old records reviewed, nursing notes reviewed Medical history: cirrhosis, diabetes, GERD, hypertension, renal disease Additional medical history: alpha one intryptysin defiency Psychiatric history: depression - Past Surgical History Surgical History: orthopedic, other, other Additional surgical history: carpal tunnel left. nodules vocal cords. left knee - Social History Smoking Status: Never smoker Smokeless Tobacco Status: No Alcohol use: none Drug use: none - Family History Mother Living Status: Hx Family Cardiac Disorders: No Hx Family Respiratory Disorders: No Hx Family Cancer: Yes Hx Family Endocrine Disorder: Yes Internal Medicine - H&P: Meds Multivitamin [One Daily Multivitamin] 1 tab PO DAILY 08/12/17 [History] Atorvastatin Calcium [Lipitor] 20 mg PO DAILY 09/04/18 [History] Pantoprazole Sodium [Protonix] 40 mg PO BID 09/04/18 [History] Zinc Gluconate 100 mg PO BID 09/04/18 [History] Ferrous Sulfate 325 mg PO DAILY #30 tablet 09/06/18 [Rx] metFORMIN [Glucophage] 500 mg PO BIDWM #60 tablet 09/06/18 [Rx] Bumetanide 2 mg PO DAILY 12/04/18 [History] Ascorbate Calcium [Vitamin C] 500 mg PO QAM 12/16/18 [History] Glimepiride [Amaryl] 2 mg PO QAM 12/17/18 [History] Ondansetron ODT [Zofran ODT] 4 mg SL Q8H PRN 12/17/18 [History] Rifaximin [Xifaxan] 550 mg PO BID 30 Days #60 tablet 12/18/18 [Rx] Escitalopram [Lexapro] 10 mg PO DAILY 01/19/19 [History] Lactulose [Enulose] 30 ml PO TID 01/19/19 [History] Allergy/AdvReac Type Severity Reaction Status Date / Time No Known Allergies Allergy Verified 12/17/18 18:36 All Systems PM: A 10-system review of systems was performed and is negative for pertinent findings except as documented above in the HPI. - Constitutional Constitutional: no chills, no fever(s), no falls - Cardiovascular Cardiovascular ROS IM: no chest pain, no dyspnea, no dyspnea on exertion, no lightheadedness, no palpitations - Respiratory Respiratory: no cough, no dyspnea, no dyspnea on exertion, no wheezing, no chest congestion, no excessive phlegm production - Gastrointestinal Gastrointestinal: loose stools, nausea, vomiting, no abdominal pain, no coffee ground emesis, no hematemesis, no melena - Musculoskeletal Musculoskeletal ROS IM: no numbness, no tingling - Integumentary Integumentary IM: other (Lesions on lower extremities as described in the history of present illness.) - Neurological Neurological ROS: confusion, no headache(s), no numbness, no tremor(s), no weakness - Constitutional Vitals: Temp Pulse Resp BP Pulse Ox 97.9 F 98 15 119/69 98 01/19/19 17:28 01/19/19 17:28 01/19/19 17:28 01/19/19 17:28 01/19/19 17:28 General appearance: Present: cooperative, A&O X 3, pleasant, no acute distress, obese, answers questions appropriately Exam: Constitutional: Obese male in no acute distress Head: Normocephalic, atraumatic Eyes: PERRL, EOMI, conjunctiva pink, sclera anicteric Neck: Supple, trachea midline Lungs: Clear to auscultation bilaterally. Nonlabored breathing. No wheezes, rales, or rhonchi noted. Cardiac: RRR. +s1 +S2 No murmurs, clicks, or rubs noted. GI: Abdomen soft, nontender, obese. Normoactive bowel sounds Extremities: Warm, radial pulses palpable and symmetrical. No cyanosis. There is 1+ pitting edema in bilateral lower extremities. Neuro: Alert and oriented 3. No focal deficits. Normal speech. Skin: Warm, dry, and intact. No jaundice. Noted blisterlike lesions on anterior right leger and posterior left calf. - Assessment and Plan (1) Hepatic encephalopathy Current Visit: Yes Status: Acute Assessment and plan: Presents with complaints of confusion Known cirrhosis Unknown inciting event - no recent illnesses, pt is compliant with medications and diet and recently followed up with Dr Beckman Ammonia from [facility] ED elevated at 84 CT head from [facility] was negative for acute intracranial abnormality Will increase lactulose to 30mg QID as pt takes 30mg TID at home. Also received 30mg while at [facility] ED Continue to monitor Trend ammonia (2) Cirrhosis of liver Current Visit: Yes Status: Chronic Assessment and plan: Known history with Alpha 1 antitrypsin deficiency Lactulose as above Takes 2mg Bumex daily at home Does complain of increased edema Will continue home Bumex Also supplement with 40mg IV Lasix once Qualifiers: Hepatic cirrhosis type: unspecified hepatic cirrhosis Ascites presence: with ascites Qualified Code(s): K74.60 - Unspecified cirrhosis of liver; R18.8 - Other ascites (3) Hyperammonemia Current Visit: Yes Status: Acute Assessment and plan: As above (4) Thrombocytopenia Current Visit: Yes Status: Chronic Assessment and plan: Likely 2/2 Liver cirrhosis Continue to monitor (5) Anemia Current Visit: Yes Status: Chronic Assessment and plan: Appears to be chronic Continue to monitor Qualifiers: Anemia type: unspecified type Qualified Code(s): D64.9 - Anemia, unspecified (6) Hypertension Current Visit: Yes Status: Chronic Assessment and plan: Currently controlled Continue to monitor Qualifiers: Hypertension type: essential hypertension Qualified Code(s): I10 - Essential (primary) hypertension (7) DM type 2 (diabetes mellitus, type 2) Current Visit: Yes Status: Chronic Assessment and plan: Hold home Metformin and Amaryl SSI ACHS Qualifiers: Diabetes mellitus long term care phlebotomist insulin use: without mcfp use Diabetes mellitus complication status: without complication Qualified Code(s): E11.9 - Type 2 diabetes mellitus without complications (8) DVT prophylaxis Current Visit: Yes Status: Acute Assessment and plan: EPCDs - Time Spent With Patient Total time spent is greater than 50% in coordination of care (as documented) at patient's floor/unit and/or counseling patient: <Ariella Trevino - Last Filed: 01/19/19 21:27> Date of Encounter: 01/19/19 Internal Medicine - H&P: HPI History of present illness: Mr. Diaz is a 53 year old male All Systems PM: A 10-system review of systems was performed and is negative for pertinent findings except as documented above in the HPI. - Constitutional Vitals: Temp Pulse Resp BP Pulse Ox 97.9 F 98 15 119/69 98 01/19/19 17:28 01/19/19 17:28 01/19/19 17:28 01/19/19 17:28 01/19/19 17:28 - Assessment and Plan (1) Cirrhosis of liver Current Visit: Yes Status: Chronic Qualifiers: Hepatic cirrhosis type: unspecified hepatic cirrhosis Ascites presence: with ascites Qualified Code(s): K74.60 - Unspecified cirrhosis of liver; R18.8 - Other ascites (2) Thrombocytopenia Current Visit: Yes Status: Chronic (3) Hypertension Current Visit: Yes Status: Chronic Qualifiers: Hypertension type: essential hypertension Qualified Code(s): I10 - Essential (primary) hypertension (4) Hyperammonemia Current Visit: Yes Status: Acute (5) Hepatic encephalopathy Current Visit: Yes Status: Acute (6) Anemia Current Visit: Yes Status: Chronic Qualifiers: Anemia type: unspecified type Qualified Code(s): D64.9 - Anemia, unspecified (7) DM type 2 (diabetes mellitus, type 2) Current Visit: Yes Status: Chronic Qualifiers: Diabetes mellitus mcfp insulin use: without long term care phlebotomist use Diabetes mellitus complication status: without complication Qualified Code(s): E11.9 - Type 2 diabetes mellitus without complications (8) DVT prophylaxis Current Visit: Yes Status: Acute - Time Spent With Patient Total time spent is greater than 50% in coordination of care (as documented) at patient's floor/unit and/or counseling patient: - Attending Attestation I saw evaluated and examined this patient and reviewed objective data including labs and my medical decision-making was reviewed with the Resident Physician. I agree with the documented findings, disposition and treatment plan as described except to any changes set forth below. We independently had [id number] contact with the patient.
[2019-01-19] MEDS ORDERED: Naloxone 0.4 MG/ML INJ IVP PRN (18:36)
[2019-01-19] MEDS ORDERED: Furosemide 40 MG/4 ML VIAL IVP ONE (18:52)
[2019-01-19] MEDS ORDERED: Ondansetron 4 MG/2 ML VIAL IVP PRN (18:53)
[2019-01-19] MEDS ORDERED: *HR* Dextrose 50 % in Water (Syg) 50 ML SYRINGE IVP PRN (19:41)
[2019-01-19] MEDS ORDERED: Dextrose Gel 15 GM/37.5 ML TUBE PO PRN ×2 (19:41)
[2019-01-19] MEDS ORDERED: D5% in Water 1,000 ML IVC PRN (19:41)
[2019-01-19] MEDS: Lactulose Oral Soln 20 GM/30 ML UDC PO SCH (21:59)
[2019-01-19] MEDS: Insulin LISPRO 300 UNITS/3 ML VIAL SQ SCH (22:03)
[2019-01-20 04:33] LABS: Hemoglobin 8.8 g/dL (12.9-16.9); Immature Granulocytes % 0.2 % (0-4); Red Cell Distribution Width 16.9 % (11.5-14.5)
[2019-01-20 04:35] LABS: Basophils # 0.1 K/mcL (0.0-0.2); Basophils % 1.5 %; Eosinophils # 0.3 K/mcL (0.0-0.6); Eosinophils % 7.5 %; Hematocrit 27.1 % (37.5-50.1); Immature Platelets 0.9 % (1.1-6.1); Lymphocytes % 25.7 %; Mean Corpuscular HGB Conc 32.5 g/dL (31.6-35.5); Mean Corpuscular Hemoglobin 34.4 pg (28.0-33.3); Mean Corpuscular Volume 105.9 fL (83.0-100.0); Monocytes # 0.5 K/mcL (0.0-1.3); Monocytes % 12.2 %; Neutrophils # 2.1 K/mcL (1.6-8.9); Red Blood Count 2.56 M/mcL (4.19-5.50); Segmented Neutrophils % 52.9 %
[2019-01-20 04:37] LABS: Platelet Count 79 K/mcL (140-400)
[2019-01-20 04:42] LABS: INR 1.5; Prothrombin Time 16.6 Seconds (9.4-12.1)
[2019-01-20 04:52] LABS: Alanine Aminotransferase 54 Units/L (7-52); Albumin 2.6 g/dL (3.5-5.7); Albumin/Globulin Ratio 0.9 (1.1-2.2); Alkaline Phosphatase 106 Units/L (34-104); Aspartate Amino Transferase 77 Units/L (13-39); BUN/Creatinine Ratio 16 (6-26); Bilirubin,Total 1.8 mg/dL (0.3-1.0); Blood Urea Nitrogen 10 mg/dL (6-20); Calcium 8.2 mg/dL (8.6-10.3); Carbon Dioxide 23 mEq/L (23-29); Chloride 111 mEq/L (98-107); Globulin 2.8 g/dL (2.4-3.5); Glucose 102 mg/dL (70-105); Osmolality,Calculated 289 (280-300); Potassium 3.6 mEq/L (3.5-5.1); Sodium 140 mEq/L (136-145); Total Protein 5.4 g/dL (6.4-8.9); eGFR For African Americans > 60 (> 60); eGFR For Non-African Americans > 60 (> 60)
[2019-01-20] MEDS: Lactulose Oral Soln 20 GM/30 ML UDC PO SCH ×4 (07:40→20:07)
[2019-01-20] MEDS: Insulin LISPRO 300 UNITS/3 ML VIAL SQ SCH ×4 (07:40→20:58)
[2019-01-20] MEDS ORDERED: Bumetanide 1 MG TABLET PO SCH (09:00)
--- NOTE | 2019-01-20 11:08 | Gastroenterology Consult Note ---
<Duarte Salinas Yareli - Last Filed: 01/20/19 11:06> Date of Encounter: 01/20/19 Time of Encounter: 10:20 - Assessment and plan (1) Cirrhosis of liver Status: Chronic Assessment and plan: MELD-Na 13 and Child-Ward class B. AFP 4 on 07/23/2017. Check AFP and RUQ US. Alpha-1 antitrypsin normal on 07/23/2017 and Z allele heterozygous. Titrate Lactulose for 2-4 BMs daily. Continue Rifaximin 550 mg BID. Patient was recently seen by Dr. Beckman and Rifaximin was prescribed but is currently going through approval process. He follows with Dr. Freeman at [facility]. Lifestyle Changes: 1. Total abstinence from alcohol including social drinking. 2. No smoking. 3. Gradual loss of weight. 4. Drink at least 3 cups of coffee due to its antioxidant effects in the liver, it reduces risk of HCC and advance fibrosis. 5. If needed, use less than 2 g/day of Tylenol (in divided doses). 6. Vaccination for Hep A, B, Pneumococcus if not already received and yearly influenza vaccination by PCP. 7. Avoid NSAIDS as can cause kidney damage. 8. Avoid benzodiazepines and other sedatives such as anti-histamines, narcotics etc. as can cause encephalopathy or confusion. 9. Take a late carbohydrate meal supplement as it reduces glucose production from protein breakdown and thus improves nutrition. 10. In cirrhosis, statins are safe to use and also improve portal hypertension and decrease risk of HCC. 11. Screening: Hepatocellular cancer screening: US of liver and AFP every 6 months Qualifiers: Hepatic cirrhosis type: unspecified hepatic cirrhosis Ascites presence: ascites Qualified Code(s): K74.60 - Unspecified cirrhosis of liver; R18.8 - Other ascites (2) Hepatic encephalopathy Status: Acute Assessment and plan: As above. (3) Thrombocytopenia Status: Chronic Assessment and plan: Likely secondary to cirrhosis. - Time Spent With Patient Total time spent is greater than 50% in coordination of care (as documented) at patient's floor/unit and/or counseling patient: GI History of Present Illness - Data of Consult Patient: known to practice within the last 3 years Consult date: 01/20/19 Requesting Physician: Ariella Trevino MD - Consult Narrative Reason for consult: Hepatic encephalopathy History of present illness: Mr. Diaz is a 53 year old male with PMHx of cirrhosis, DM, GERD, HTN who presented [facility] with confusion. He reports similar events previously which he related to his cirrhosis. CT head with no acute intracranial abnormality. He was transferred to [facility] for further evaluation. He was seen by Dr. Beckman on 01/17/2019 and had not been taking his medication as prescribed. On review of his medication, it was found that he had not filled his Rifaximin since August 2018. Rifaximin was sent in by Dr. Bekcman, and is going through approval process with his insurance company. On admission here, TB 1.8, AST 77, ALT 54, AP 106, and ammonia 96. Patient was started on Lactulose QID and Rifaximin BID. He reports feeling "much better" today after having 5 BMs. Procedures: EGD 12/15/2017 Dr. 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 Colonoscopy 08/20/2017 Dr. Beckman 3 mm tubular adenoma, 3 mm hyperplastic polyp, internal hemorrhoids, repeat 5 years. EGD 08/20/2017 Dr. Beckman: LA grade C reflux esophagitis, negative for Emerson's esophagus, medium hiatal hernia, portal hypertensive gastropathy. EGD 06/25/2017 Dr. Iglesias: Bleeding erosive gastropathy, portal hypertensive gastropathy, small hiatal hernia, esophageal varices. NSAIDs: None Anticoagulation: None Past Med Surg Social Fam HX - Past Medical History Medical history: cirrhosis, diabetes, GERD, hypertension, renal disease Additional medical history: alpha one intryptysin defiency Psychiatric history: depression - Past Surgical History Surgical History: orthopedic, other, other Additional surgical history: carpal tunnel left. nodules vocal cords. left knee - Social History Smoking Status: Never smoker Smokeless Tobacco Status: No Alcohol use: none Drug use: none - Family History Mother Living Status: Hx Family Cardiac Disorders: No Hx Family Respiratory Disorders: No Hx Family Cancer: Yes Hx Family Endocrine Disorder: Yes - Gastrointestinal Gastrointestinal: Present: as per HPI - Constitutional Constitutional: as per HPI - EENT Eyes: as per HPI Ears: Present: as per HPI Nose, mouth and throat: Present: as per HPI - Cardiovascular Cardiovascular ROS: Present: as per HPI - Respiratory Respiratory IM: Present: as per HPI - Genitourinary Genitourinary: Absent: change in color, Urinary frequency - Neurological ROS Neurological GI: Present: as per HPI - Hematologic/Lymphatic Hematologic/Lymphatic pediatric: Present: as per HPI - Musculoskeletal Musculoskeletal ROS GI: Present: as per HPI - Integumentary Integumentary GI: Present: as per HPI - Psychiatric ROS Psychiatric GI: Present: as per HPI - Endocrine Endocrine IM: Present: as per HPI - Constitutional Vitals: Temp Pulse Resp BP Pulse Ox 98.3 F 87 16 110/72 94 01/20/19 07:14 01/20/19 07:14 01/20/19 07:14 01/20/19 07:14 01/20/19 07:14 General appearance: Present: cooperative, A&O X 3, no acute distress, answers questions appropriately - Head Head exam: Present: atraumatic, normocephalic - Eye Eye exam: Present: normal appearance, sclera anicteric - ENT ENT exam: Present: mucous membranes moist - Neck Neck exam general surgery: Present: normal inspection, trachea midline - Respiratory Respiratory exam: Present: CTAB. Absent: rales, rhonchi - Cardiovascular Cardiovascular exam: Present: RRR, +S1, +S2 - GI/Abdominal GI/Abdominal exam: Present: soft, tenderness (mild), no peritoneal signs. Absent: distended, firm, guarding Additional comments: obese - Rectal Rectal exam: Present: deferred - Extremities Exam Extremities exam: Present: warm - Neurological Exam Neurological exam: Present: no focal deficits - Psychiatric Psychiatric exam: Present: normal affect, normal mood - Skin Skin exam: Present: dry, intact, normal color, warm Results - Labs CBC & Chem 7: 01/20/19 04:21 01/20/19 04:21 Labs: Last Result 01/20/19 04:21 Calcium 8.2 L Entire Visit 01/20/19 01/20/19 01/20/19 04:21 04:21 04:21 Hgb 8.8 L Hct 27.1 L PT 16.6 H Total Bilirubin 1.8 H AST 77 H ALT 54 H Ammonia 01/20/19 04:21 Hgb Hct PT Total Bilirubin AST ALT Ammonia 96 H - ABG ABG results: PT/INR, D-dimer PT 16.6 Seconds (9.4-12.1) H 01/20/19 04:21 Consult Discharge Plan - Plan Additional Instructions: Start Bumex 2mg twice a day BMP lab to be done prior to seeing Dr Thorne on Thursday at 1pm Referrals: Daphnie Calvillo, SHANELLE [Advanced Practice Nurse] - Bairon Thorne [Resident] - 01/25/19 1:30 pm Prescriptions: Bumetanide [Bumex] 2 mg IV BIDDIURETIC 10 Days #20 mls <Wellington Valerio - Last Filed: 01/25/19 05:33> Date of Encounter: 01/20/19 - Time Spent With Patient Total time spent is greater than 50% in coordination of care (as documented) at patient's floor/unit and/or counseling patient: GI History of Present Illness - Data of Consult Requesting Physician: Ariella Trevino MD - Consult Narrative History of present illness: Mr. Diaz is a 53 year old male - Constitutional Vitals: Temp Pulse Resp BP Pulse Ox 97.4 F L 85 17 129/76 99 01/21/19 09:58 01/21/19 09:58 01/21/19 09:58 01/21/19 09:58 01/21/19 10:17 Results - Labs CBC & Chem 7: 01/21/19 04:01 01/21/19 04:01 - ABG ABG results: PT/INR, D-dimer PT 15.1 Seconds (9.4-12.1) H 01/21/19 09:18 - Attending Attestation Patient with cirrhosis normally followed by Dr Beckman and Dr Freeman ([facility]) presents with hepatic encephalopathy has been given Lactulose and is improving. Rifaximin is pending approval apparently. Manage as you are doing and follow up as outpatient. I examined this patient and my medical decision-making was reviewed with the Resident Physician. I agree with the documented findings, disposition and treatment plan as described except to the extent set forth below.
[2019-01-20] MEDS ORDERED: Bumetanide 1 MG/4 ML VIAL IVP ONE (15:20)
--- NOTE | 2019-01-20 16:23 | Internal Med Progress Note ---
<Alma Hernandez E - Last Filed: 01/20/19 17:23> Hospitalist Progress Note - Encounter Date of Encounter: 01/20/19 Time of Encounter: 10:00 - Subjective Interval History: Mr. Diaz is a 53-year-old male who actually presented with altered mental status as well as worsening cirrhosis Patient was seen and examined at bedside today where he states that he is feeling much better and does not have continued altered mental status. He denies chest pain, shortness of breath, abdominal pain, nausea, vomiting, diarrhea, weakness. - Exam Vitals: Temp Pulse Resp BP Pulse Ox 98.2 F 84 18 115/74 99 01/20/19 15:24 01/20/19 15:24 01/20/19 15:24 01/20/19 15:24 01/20/19 15:24 Exam: General: AAO 3, no acute distress, answers questions appropriately Head: normocephalic, atraumatic Eyes: ANMOL, no icterus Cardio: RRR, no murmurs, rubs, or gallops Respiratory: CTAB, no wheezing, rhonchi, rales Abd: normal bowel sounds, no guarding or rigidity, abdomen is protuberant but no fluid wave noticed Extremities: 3+ pitting edema to the knees bilaterally, pulses equal bilaterally, warm Skin: warm, dry, intact - Assessment and Plan (1) Cirrhosis of liver Current Visit: Yes Status: Chronic Assessment and Plan: Known history of alpha-1 antitrypsin deficiency Lactulose to have 2-4 bowel movements per day 2 mg Bumex daily We gave 1 dose of IV Bumex this afternoon, tomorrow we will continue IV Bumex instead of oral GI would like to continue rifaximin 550 mg twice a day We appreciate GIs recommendations (2) Thrombocytopenia Current Visit: Yes Status: Chronic Assessment and Plan: Likely secondary to liver cirrhosis We will continue to monitor (3) Hypertension Current Visit: Yes Status: Chronic Assessment and Plan: Currently well controlled We will continue to monitor (4) Hyperammonemia Current Visit: Yes Status: Acute Assessment and Plan: Likely secondary to liver cirrhosis Please see cirrhosis (5) Hepatic encephalopathy Current Visit: Yes Status: Resolved Assessment and Plan: Patient initially presented with complaints of confusion Patient has known history of cirrhosis The inciting event is not known as patient denies recent illness. Patient was not on rifaximin at the time due to insurance Ammonia at [facility] 84, repeat today 96 CT head negative for any acute intracranial abnormalities Continue lactulose for to 4 bowel movements per day Continue to monitor Patient seems to be back to his baseline (6) Anemia Current Visit: Yes Status: Chronic Assessment and Plan: Likely due to chronic disease Continue to monitor (7) DM type 2 (diabetes mellitus, type 2) Current Visit: Yes Status: Chronic Assessment and Plan: Low-dose sliding scale insulin before meals at bedtime (8) DVT prophylaxis Current Visit: Yes Status: Acute Assessment and Plan: EPCDs DVT Prophylaxis: EPCDs - Time Spent with Patient Total time spent is greater than 50% in coordination of care (as documented) at patient's floor/unit and/or counseling patient: Internal Medicine: Result - Labs CBC & Chem 7: 01/20/19 04:21 01/20/19 04:21 Labs: Short CBC 01/20/19 Range/Units 04:21 WBC 4.0 L (4.3-11.1) K/mcL Hgb 8.8 L (12.9-16.9) g/dL Hct 27.1 L (37.5-50.1) % Plt Count 79 L (140-400) K/mcL Neutrophils # 2.1 (1.6-8.9) K/mcL BMP 01/20/19 04:21 Sodium 140 Potassium 3.6 Chloride 111 H Carbon Dioxide 23 BUN 10 Creatinine 0.62 L Glucose 102 Calcium 8.2 L Liver Function 01/20/19 Range/Units 04:21 Total Bilirubin 1.8 H (0.3-1.0) mg/dL AST 77 H (13-39) Units/L ALT 54 H (7-52) Units/L Alkaline Phosphatase 106 H (34-104) Units/L Albumin 2.6 L (3.5-5.7) g/dL - ABG Interpretation ABG results: PT/INR, D-dimer PT 16.6 Seconds (9.4-12.1) H 01/20/19 04:21 Consult Discharge Plan - Plan Referrals: NONE,PCP [Primary Care Provider] - <Ariella Trevino - Last Filed: 01/20/19 17:54> Hospitalist Progress Note - Encounter Date of Encounter: 01/20/19 - Exam Vitals: Temp Pulse Resp BP Pulse Ox 98.2 F 84 18 115/74 99 01/20/19 15:24 01/20/19 15:24 01/20/19 15:24 01/20/19 15:24 01/20/19 15:24 - Assessment and Plan (1) Cirrhosis of liver Current Visit: Yes Status: Chronic (2) Thrombocytopenia Current Visit: Yes Status: Chronic (3) Hypertension Current Visit: Yes Status: Chronic (4) Hyperammonemia Current Visit: Yes Status: Acute (5) Hepatic encephalopathy Current Visit: Yes Status: Resolved (6) Anemia Current Visit: Yes Status: Chronic (7) DM type 2 (diabetes mellitus, type 2) Current Visit: Yes Status: Chronic (8) DVT prophylaxis Current Visit: Yes Status: Acute - Time Spent with Patient Total time spent is greater than 50% in coordination of care (as documented) at patient's floor/unit and/or counseling patient: Internal Medicine: Result - Labs CBC & Chem 7: 01/20/19 04:21 01/20/19 04:21 Labs: Short CBC 01/20/19 Range/Units 04:21 WBC 4.0 L (4.3-11.1) K/mcL Hgb 8.8 L (12.9-16.9) g/dL Hct 27.1 L (37.5-50.1) % Plt Count 79 L (140-400) K/mcL Neutrophils # 2.1 (1.6-8.9) K/mcL BMP 01/20/19 04:21 Sodium 140 Potassium 3.6 Chloride 111 H Carbon Dioxide 23 BUN 10 Creatinine 0.62 L Glucose 102 Calcium 8.2 L Liver Function 01/20/19 Range/Units 04:21 Total Bilirubin 1.8 H (0.3-1.0) mg/dL AST 77 H (13-39) Units/L ALT 54 H (7-52) Units/L Alkaline Phosphatase 106 H (34-104) Units/L Albumin 2.6 L (3.5-5.7) g/dL - ABG Interpretation ABG results: PT/INR, D-dimer PT 16.6 Seconds (9.4-12.1) H 01/20/19 04:21 - Attending Attestation I saw evaluated and examined this patient and reviewed objective data including labs and my medical decision-making was reviewed with the Resident Physician. I agree with the documented findings, disposition and treatment plan as described except to any changes set forth below. We independently had [id number] contact with the patient. Patient states he is no longer confused as he felt yesterday. Still having some edema of extremities and abdomen. On exam upper and lower extremity edema noted, only slightly improved since yesterday. Lung sounds clear to auscultation. No JVD. VS: Reviewed, labs: reviewed. Continue lactulose and rifaxamin. Continue IV diuresis. _ <Alma Hernandez - Last Filed: 01/20/19 17:23> (1) Cirrhosis of liver Qualifiers: Hepatic cirrhosis type: unspecified hepatic cirrhosis Ascites presence: with ascites Qualified Code(s): K74.60 - Unspecified cirrhosis of liver; R18.8 - Other ascites (3) Hypertension Qualifiers: Hypertension type: essential hypertension Qualified Code(s): I10 - Essential (primary) hypertension (6) Anemia Qualifiers: Anemia type: unspecified type Qualified Code(s): D64.9 - Anemia, unspecified (7) DM type 2 (diabetes mellitus, type 2) Qualifiers: Diabetes mellitus senior living insulin use: without senior living use Diabetes mellitus complication status: without complication Qualified Code(s): E11.9 - Type 2 diabetes mellitus without complications <Ariella Trevino - Last Filed: 01/20/19 17:54> (1) Cirrhosis of liver Qualifiers: Hepatic cirrhosis type: unspecified hepatic cirrhosis Ascites presence: with ascites Qualified Code(s): K74.60 - Unspecified cirrhosis of liver; R18.8 - Other ascites (3) Hypertension Qualifiers: Hypertension type: essential hypertension Qualified Code(s): I10 - Essential (primary) hypertension (6) Anemia Qualifiers: Anemia type: unspecified type Qualified Code(s): D64.9 - Anemia, unspecified (7) DM type 2 (diabetes mellitus, type 2) Qualifiers: Diabetes mellitus senior living insulin use: without senior living use Diabetes mellitus complication status: without complication Qualified Code(s): E11.9 - Type 2 diabetes mellitus without complications
[2019-01-21 04:23] LABS: Basophils % 1.4 %
[2019-01-21 04:25] LABS: Basophils # 0.1 K/mcL (0.0-0.2); Eosinophils # 0.2 K/mcL (0.0-0.6); Eosinophils % 5.8 %; Hematocrit 28.6 % (37.5-50.1); Hemoglobin 9.2 g/dL (12.9-16.9); Immature Granulocytes % 0.3 % (0-4); Immature Platelets 1.5 % (1.1-6.1); Lymphocytes % 23.4 %; Mean Corpuscular HGB Conc 32.2 g/dL (31.6-35.5); Mean Corpuscular Hemoglobin 34.3 pg (28.0-33.3); Mean Corpuscular Volume 106.7 fL (83.0-100.0); Mean Platelet Volume 9.4 fL (9.4-12.4); Monocytes # 0.5 K/mcL (0.0-1.3); Monocytes % 14.3 %; Red Blood Count 2.68 M/mcL (4.19-5.50); Red Cell Distribution Width 16.3 % (11.5-14.5); Segmented Neutrophils % 54.8 %; White Blood Count 3.6 K/mcL (4.3-11.1)
[2019-01-21 04:29] LABS: Lymphocytes # 0.8 K/mcL (0.6-4.6); Platelet Count 81 K/mcL (140-400)
[2019-01-21 04:40] LABS: Alanine Aminotransferase 56 Units/L (7-52); Albumin 2.8 g/dL (3.5-5.7); Alkaline Phosphatase 107 Units/L (34-104); Aspartate Amino Transferase 78 Units/L (13-39); BUN/Creatinine Ratio 17 (6-26); Bilirubin,Total 1.7 mg/dL (0.3-1.0); Blood Urea Nitrogen 11 mg/dL (6-20); Calcium 8.6 mg/dL (8.6-10.3); Carbon Dioxide 27 mEq/L (23-29); Chloride 105 mEq/L (98-107); Globulin 2.8 g/dL (2.4-3.5); Glucose 157 mg/dL (70-105); Osmolality,Calculated 291 (280-300); Potassium 3.5 mEq/L (3.5-5.1); Sodium 139 mEq/L (136-145); Total Protein 5.6 g/dL (6.4-8.9); eGFR For African Americans > 60 (> 60); eGFR For Non-African Americans > 60 (> 60)
[2019-01-21] MEDS ORDERED: Bumetanide 1 MG/4 ML VIAL IVP SCH (09:00)
[2019-01-21 09:38] LABS: INR 1.3; Prothrombin Time 15.1 Seconds (9.4-12.1)
[2019-01-21 10:01] VITALS: BP 129/76
[2019-01-21] MEDS: Insulin LISPRO 300 UNITS/3 ML VIAL SQ SCH (10:01)
[2019-01-21] MEDS: Lactulose Oral Soln 20 GM/30 ML UDC PO SCH (10:02)
--- NOTE | 2019-01-21 10:08 | Discharge Summary ---
<Alma Hernandez E - Last Filed: 01/21/19 11:03> Orders not resulted at time of discharge: Pending orders 01/20/19 11:51 AFP Tumor Marker Non- Routine Date of Encounter: 01/21/19 Time of Encounter: 09:15 - Discharge Diagnosis (1) Cirrhosis of liver Priority: Primary Status: Chronic Assessment and Plan: Known history of alpha-1 antitrypsin deficiency Lactulose to have 2-4 bowel movements per day oral Bumex 2mg twice daily GI would like to continue rifaximin 550 mg twice a day We appreciate GIs recommendations BMP before appoitnment on Thursday with Dr. Thorne Qualifiers: Hepatic cirrhosis type: unspecified hepatic cirrhosis Ascites presence: with ascites Qualified Code(s): K74.60 - Unspecified cirrhosis of liver; R18.8 - Other ascites (2) Thrombocytopenia Priority: Secondary Status: Chronic Assessment and Plan: Likely secondary to liver cirrhosis We will continue to monitor (3) Hypertension Priority: Secondary Status: Chronic Assessment and Plan: Currently well controlled We will continue to monitor Qualifiers: Hypertension type: essential hypertension Qualified Code(s): I10 - Essential (primary) hypertension (4) Hyperammonemia Priority: Primary Status: Acute Assessment and Plan: Likely secondary to liver cirrhosis Has decreased from 96 to 54 (5) Hepatic encephalopathy Priority: Primary Status: Resolved Assessment and Plan: Patient initially presented with complaints of confusion Patient has known history of cirrhosis The inciting event is not known as patient denies recent illness. Patient was not on rifaximin at the time due to insurance Ammonia [address] head negative for any acute intracranial abnormalities Continue lactulose for to 4 bowel movements per day Continue to monitor Patient seems to be back to his baseline (6) Anemia Priority: Secondary Status: Chronic Assessment and Plan: Likely due to chronic disease Qualifiers: Anemia type: unspecified type Qualified Code(s): D64.9 - Anemia, unspecified (7) DM type 2 (diabetes mellitus, type 2) Priority: Secondary Status: Chronic Assessment and Plan: restart home medications Qualifiers: Diabetes mellitus penitentiary insulin use: without penitentiary use Diabetes mellitus complication status: without complication Qualified Code(s): E11.9 - Type 2 diabetes mellitus without complications (8) DVT prophylaxis Priority: Secondary Status: Acute Assessment and Plan: was on ECPDs Hospital course: Mr. Diaz is a 53 year old male initially presented with altered mental status as well as worsening cirrhosis. Ammonia level 96 on admission. Patient was treated with lactulose as well as rifaximin and given additional IV Bumex to 2 increased fluid retention. Patient's hepatic encephalopathy has resolved at this time and he is back to baseline. Repeat ammonia today 54. GI recommends t itrating lactulose to 2-4 bowel movements daily, rifaximin 550 mg twice a day. Patient has a history of cirrhosis meld score 13 child Ward class B. Follows with Dr. Freeman at [facility]. Patient to follow-up with his doctor at [facility] today and continue to see Dr. Beckman as scheduled. Discharge discussed with: patient - Time Spent with Patient Total time spent providing and/or coordinating discharge services: - Discharge Medications Prescriptions: New Bumetanide [Bumex] 2 mg IV BIDDIURETIC 10 Days #20 mls Continued Multivitamin [One Daily Multivitamin] 1 tab PO DAILY Ascorbate Calcium [Vitamin C] 500 mg PO QAM Glimepiride [Amaryl] 2 mg PO QAM Ondansetron ODT [Zofran ODT] 4 mg SL Q8H PRN PRN Reason: NAUSEA/VOMITING Rifaximin [Xifaxan] 550 mg PO BID 30 Days #60 tablet Spironolactone 150 mg PO BID Pantoprazole Sodium [Protonix] 40 mg PO BID Zinc Gluconate 100 mg PO BID Atorvastatin Calcium [Lipitor] 20 mg PO DAILY Ferrous Sulfate 325 mg PO DAILY #30 tablet metFORMIN [Glucophage] 500 mg PO BIDWM #60 tablet Bumetanide 2 mg PO DAILY Changed Lactulose [Enulose] 90 ml PO QID #0 Home Medications: Multivitamin [One Daily Multivitamin] 1 tab PO DAILY 08/12/17 [History] Atorvastatin Calcium [Lipitor] 20 mg PO DAILY 09/04/18 [History] Pantoprazole Sodium [Protonix] 40 mg PO BID 09/04/18 [History] Zinc Gluconate 100 mg PO BID 09/04/18 [History] Ferrous Sulfate 325 mg PO DAILY #30 tablet 09/06/18 [Rx] metFORMIN [Glucophage] 500 mg PO BIDWM #60 tablet 09/06/18 [Rx] Bumetanide 2 mg PO DAILY 12/04/18 [History] Ascorbate Calcium [Vitamin C] 500 mg PO QAM 12/16/18 [History] Glimepiride [Amaryl] 2 mg PO QAM 12/17/18 [History] Ondansetron ODT [Zofran ODT] 4 mg SL Q8H PRN 12/17/18 [History] Rifaximin [Xifaxan] 550 mg PO BID 30 Days #60 tablet 12/18/18 [Rx] Spironolactone 150 mg PO BID 01/20/19 [History] Bumetanide [Bumex] 2 mg IV BIDDIURETIC 10 Days #20 mls 01/21/19 [Rx] Lactulose [Enulose] 90 ml PO QID #0 01/21/19 [Rx] Allergies/Adverse Reactions: Allergy/AdvReac Type Severity Reaction Status Date / Time No Known Allergies Allergy Verified 12/17/18 18:36 Date of admission: 01/19/19 17:10 Primary care physician: PCP NONE Consults: 01/20/19 09:10 Consult to Gastroenterology [CONS] Routine Consulting Provider: Gastroenterology Rosanna Reason for Consult: cirrhosis Time Notified: 09:05 Call Completed: Yes Discharging clinician: Ariella Trevino Anticipated date of discharge: 01/21/19 - Constitutional Vitals: Temp Pulse Resp BP Pulse Ox 97.4 F L 85 17 129/76 99 01/21/19 09:58 01/21/19 09:58 01/21/19 09:58 01/21/19 09:58 01/21/19 09:58 General appearance: Present: cooperative, A&O X 3, pleasant, no acute distress, obese, answers questions appropriately Exam: General: AAO 3, no acute distress, answers questions appropriately Head: normocephalic, atraumatic Eyes: ANMOL, no icterus Cardio: RRR, no murmurs, rubs, or gallops Respiratory: CTAB, no wheezing, rhonchi, rales Abd: normal bowel sounds, no guarding or rigidity, abdomen is protuberant but no fluid wave noticed Extremities: 2+ pitting edema to the shins bilaterally, pulses equal bilaterally , warm Skin: warm, dry, intact - Patient Status Disposition: Home, Self-Care Condition: Good Functional capacity at discharge: independent ambulation Overall status at discharge: patient is back to baseline - Ambulatory Orders Ambulatory Orders: Basic Metabolic Panel [CHEM] Time Frame: 2 Days, Facility: [facility], Location: Lab - Discharge Instructions Follow Up With: Daphnie Calvillo CNP [Advanced Practice Nurse] - Bairon Thorne [Resident] - 01/25/19 1:30 pm Additional Instructions: Start Bumex 2mg twice a day BMP lab to be done prior to seeing Dr Thorne on Thursday at 1pm - Diet and Activity Activity: increase activity as tolerated Diet: advance to your usual diet <Ariella Trevino - Last Filed: 01/21/19 15:59> Orders not resulted at time of discharge: Pending orders 01/20/19 11:51 AFP Tumor Marker Non- Routine Date of Encounter: 01/21/19 - Discharge Diagnosis (1) Cirrhosis of liver Status: Chronic Qualifiers: Hepatic cirrhosis type: unspecified hepatic cirrhosis Ascites presence: with ascites Qualified Code(s): K74.60 - Unspecified cirrhosis of liver; R18.8 - Other ascites (2) Thrombocytopenia Status: Chronic (3) Hypertension Status: Chronic Qualifiers: Hypertension type: essential hypertension Qualified Code(s): I10 - Essential (primary) hypertension (4) Hyperammonemia Status: Acute (5) Hepatic encephalopathy Status: Resolved (6) Anemia Status: Chronic Qualifiers: Anemia type: unspecified type Qualified Code(s): D64.9 - Anemia, unspecified (7) DM type 2 (diabetes mellitus, type 2) Status: Chronic Qualifiers: Diabetes mellitus [employer] insulin use: without [employer] use Diabetes mellitus complication status: without complication Qualified Code(s): E11.9 - Type 2 diabetes mellitus without complications (8) DVT prophylaxis Status: Acute Hospital course: Mr. Diaz is a 53 year old male - Time Spent with Patient Total time spent providing and/or coordinating discharge services: Date of admission: 01/19/19 17:10 Primary care physician: PCP NONE Consults: 01/20/19 09:10 Consult to Gastroenterology [CONS] Routine Consulting Provider: Marleni Marte Reason for Consult: cirrhosis Time Notified: 09:05 Call Completed: Yes - Constitutional Vitals: Temp Pulse Resp BP Pulse Ox 97.4 F L 85 17 129/76 99 01/21/19 09:58 01/21/19 09:58 01/21/19 09:58 01/21/19 09:58 01/21/19 10:17 - Attending Attestation I saw evaluated and examined this patient and reviewed objective data including labs and my medical decision-making was reviewed with the Resident Physician. I agree with the documented findings, disposition and treatment plan as described except to any changes set forth below. We independently had [id number] contact with the patient. 53 year old male with history of liver cirrhosis and a1 antitrypsin deficiency presented with cheif complaint of confusion. He takes Lactulose as a home medication and has history of hepatic encephalopathy. He was noted on admission to have significant peripheral edema. He takes 2 mg PO Bumex at home and he required IV diuresis. He was started on lactulose at higher frequency than home and also Rifaxamin. Mental status improved. Edema improved. Patient was stable for discharge. He will be followed-up by residency clinic in 4 days since holiday weekend offices will be closed and his primary care office does not have any close appointments available.
== END 2019-01-21 11:20 | disposition home or self-care (01) ==
LOC: 3ANU → SUATTDRO 17:10
PROVIDERS: ADMIT Internal Medicine; ATTEND Student in an Organized Health Care Education/Training Program

== ENCOUNTER 2019-01-27 15:11 | Observation (INO) ==
[2019-01-27] MEDS ORDERED: 0.9 % Sodium Chloride 500 ML IVC ONE (15:54)
--- NOTE | 2019-01-27 16:02 | Emergency Department Note ---
Disposition Clinical Impression: Hyperammonemia Cirrhosis of liver Qualifiers: Hepatic cirrhosis type: unspecified hepatic cirrhosis Ascites presence: with ascites Qualified Code(s): K74.60 - Unspecified cirrhosis of liver; R18.8 - Other ascites Altered mental state Qualifiers: Altered mental status type: unspecified Qualified Code(s): R41.82 - Altered mental status, unspecified Disposition: Admitted As Inpatient Condition: Fair Time of Disposition: 19:00 General Adult HPI - General Chief complaint: ED General Medical Stated complaint: Abdominal Pain Time Seen by Provider: 01/27/19 15:17 Source: patient, EMS Limitations: no limitations Nursing Notes Reviewed: Yes Vital Signs Reviewed: Yes - History of Present Illness HPI Narrative: Patient presents from the primary care office and the stories that he does have confusion I did review the previous record was recently here with elevated ammonia level and the patient has been prescribed lactulose and he does have alpha-1 antitrypsin deficiency and cirrhosis and he said he is here because of confusion. We also did get a report of pneumonia and the patient said he does h ave a cough and some shortness of breath. The patient denies any localized numbness or weakness of the extremities but does have some swelling of the legs the last 2 weeks which he said is new. He does not have any facial droop or slurred speech. No fevers. Does have blurred vision. No rhinorrhea. Does have a cough. No sneezing. No blood in the urine or stool. No bruising of the skin. Social history: No smoking or alcohol Pain Scale: 5 - Related Data Home Medications Medication Instructions Recorded Confirmed Multivitamin [One Daily 1 tab PO DAILY 08/12/17 01/27/19 Multivitamin] Atorvastatin Calcium [Lipitor] 20 mg PO DAILY 09/04/18 01/27/19 Pantoprazole Sodium [Protonix] 40 mg PO BID 09/04/18 01/27/19 Zinc Gluconate 100 mg PO BID 09/04/18 01/27/19 Bumetanide 2 mg PO BID 12/04/18 01/27/19 Ascorbate Calcium [Vitamin C] 500 mg PO QAM 12/16/18 01/27/19 Glimepiride [Amaryl] 2 mg PO QAM 12/17/18 01/27/19 Ondansetron ODT [Zofran ODT] 4 mg SL Q8H PRN 12/17/18 01/27/19 Spironolactone 150 mg PO BID 01/20/19 01/27/19 Previous Rx's Medication Instructions Recorded Ferrous Sulfate 325 mg PO DAILY #30 tablet 09/06/18 metFORMIN [Glucophage] 500 mg PO BIDWM #60 tablet 09/06/18 Rifaximin [Xifaxan] 550 mg PO BID 30 Days #60 tablet 12/18/18 Lactulose [Enulose] 90 ml PO QID #0 01/21/19 Allergies Allergy/AdvReac Type Severity Reaction Status Date / Time No Known Allergies Allergy Verified 12/17/18 18:36 All systems ED: reviewed and negative except as stated. Review of Systems: As Per HPI Past Medical History - Past Medical History Medical history: Reports: cirrhosis, diabetes, GERD, hypertension, liver d isease, renal disease Surgical history: Reports: orthopedic, other, other Psychiatric history: Reports: depression - Social History Smoking Status: Never smoker Smokeless Tobacco Status: No Alcohol use: Reports: none Drug use: Reports: none Physical Exam CONSTITUTIONAL: Well-appearing; well-nourished; Alert, in no apparent distress HEAD: Normocephalic; atraumatic. EYES: PERRL, EOMI, no scleral icterus NOSE: The nose is normal in appearance without rhinorrhea NECK: Supple without rigidity, no LORETO RESP: Normal chest excursion with respiration; breath sounds clear and equal bilaterally; no wheezes, rhonchi, or rales CARD: Regular rhythm, without murmurs, rub or gallop ABD: Non-distended; non-tender, soft, without rigidity, rebound or guarding SKIN: Normal for age and race; warm and dry; no apparent lesions, no rash NEUROLOGICAL: Patient is alert however he did not know the day of the week or the month. He does know the year. Thought that the name of the hospital was [facility]. Cranial nerves III12 within normal limits. Sensory and motor functions are intact. Strength is 5/5 for flexion and extension in all 4 extremities. Finger to nose testing is equal and normal bilaterally. - General Limitations: no limitations General appearance: alert, in no apparent distress Course Vital Signs Temperature 99.3 F 01/27/19 15:20 Pulse Rate 98 01/27/19 15:20 Respiratory Rate 20 01/27/19 15:20 Blood Pressure 137/86 01/27/19 15:20 O2 Sat by Pulse Oximetry 96 01/27/19 15:20 Temperature 98.7 F 01/27/19 21:49 Pulse Rate 92 01/27/19 21:49 Respiratory Rate 16 01/27/19 21:49 Blood Pressure 146/53 01/27/19 21:49 O2 Sat by Pulse Oximetry 98 01/27/19 21:49 Oxygen Delivery Oxygen Delivery Room Air Medical Decision Making - MDM Narrative Medical decision making narrative: Labs are ordered including ammonia level, chest x-ray, the patient will be admitted to the hospital secondary to his confusion. Results are pending. 1602 I did review the patient's EKG showing normal sinus rhythm with a rate of 95 and without acute ischemic change or arrhythmia 1603 Symptoms most consistent with confusion secondary to elevated ammonia level secondary to the patient's cirrhosis. He is not dyspneic and his chest x-rays negative and I do not see evidence of pneumonia at this time. The patient will be admitted for altered consciousness, lactulose therapy, reevaluation is. The hospitalist is paged. 1707 I did speak with the hospitalist accepts the patient for admission due to the altered level of consciousness and need for lactulose therapy 1840 - Medical Records Medical records reviewed: Yes I reviewed the patient's medical records. - Lab Data Lab results reviewed: Yes I reviewed the patient's lab results. Result diagrams: 01/27/19 15:50 01/27/19 15:50 Lab Results 01/27/19 01/27/19 01/27/19 Range/Units 15:50 15:50 15:50 WBC 5.9 D (4.3-11.1) K/mcL RBC 2.83 L (4.19-5.50) M/mcL Hgb 9.8 L (12.9-16.9) g/dL Hct 29.8 L (37.5-50.1) % MCV 105.3 H (83.0-100.0) fL MCH 34.6 H (28.0-33.3) pg MCHC 32.9 (31.6-35.5) g/dL RDW 16.4 H (11.5-14.5) % Plt Count 93 L (140-400) K/mcL MPV 10.3 (9.4-12.4) fL Immature Plt Fraction 2.4 (1.1-6.1) % Sodium 138 (136-145) mEq/L Potassium 3.6 (3.5-5.1) mEq/L Chloride 102 (98-107) mEq/L Carbon Dioxide 32 H (23-29) mEq/L BUN 8 (6-20) mg/dL Creatinine 0.71 (0.70-1.30) mg/dL Est GFR ( Amer) > 60 (> 60) Est GFR (Non-Af Amer) > 60 (> 60) BUN/Creatinine Ratio 11 (6-26) Glucose 157 H (70-105) mg/dL Calculated Osmolality 288 (280-300) Calcium 8.8 (8.6-10.3) mg/dL Total Bilirubin 1.7 H (0.3-1.0) mg/dL Direct Bilirubin 0.4 H (0.0-0.2) mg/dL Indirect Bilirubin 1.3 H (0.0-1.2) mg/dL AST 77 H (13-39) Units/L ALT 57 H (7-52) Units/L Alkaline Phosphatase 154 H (34-104) Units/L Ammonia 111 H (16-53) mcmol/L Serum Total Protein 5.9 L (6.4-8.9) g/dL Albumin 3.1 L (3.5-5.7) g/dL Globulin 2.8 (2.4-3.5) g/dL Albumin/Globulin Ratio 1.1 (1.1-2.2) - Radiology Data Radiology results reviewed: Yes I reviewed the patient's radiology results.
[2019-01-27 16:04] LABS: Hematocrit 29.8 % (37.5-50.1); Hemoglobin 9.8 g/dL (12.9-16.9); Immature Platelets 2.4 % (1.1-6.1); Mean Corpuscular HGB Conc 32.9 g/dL (31.6-35.5); Mean Corpuscular Hemoglobin 34.6 pg (28.0-33.3); Mean Corpuscular Volume 105.3 fL (83.0-100.0); Mean Platelet Volume 10.3 fL (9.4-12.4); Red Blood Count 2.83 M/mcL (4.19-5.50); Red Cell Distribution Width 16.4 % (11.5-14.5); White Blood Count 5.9 K/mcL (4.3-11.1)
[2019-01-27 16:23] LABS: Alanine Aminotransferase 57 Units/L (7-52); Albumin 3.1 g/dL (3.5-5.7); Albumin/Globulin Ratio 1.1 (1.1-2.2); Alkaline Phosphatase 154 Units/L (34-104); Aspartate Amino Transferase 77 Units/L (13-39); BUN/Creatinine Ratio 11 (6-26); Bilirubin,Direct 0.4 mg/dL (0.0-0.2); Bilirubin,Indirect 1.3 mg/dL (0.0-1.2); Bilirubin,Total 1.7 mg/dL (0.3-1.0); Blood Urea Nitrogen 8 mg/dL (6-20); Calcium 8.8 mg/dL (8.6-10.3); Carbon Dioxide 32 mEq/L (23-29); Chloride 102 mEq/L (98-107); Globulin 2.8 g/dL (2.4-3.5); Glucose 157 mg/dL (70-105); Osmolality,Calculated 288 (280-300); Potassium 3.6 mEq/L (3.5-5.1); Sodium 138 mEq/L (136-145); Total Protein 5.9 g/dL (6.4-8.9); eGFR For African Americans > 60 (> 60); eGFR For Non-African Americans > 60 (> 60)
--- NOTE | 2019-01-27 20:17 | Internal Med History&Physical ---
<More Lo Paris - Last Filed: 01/28/19 02:36> Date of Encounter: 01/28/19 Time of Encounter: 11:30 Internal Medicine - H&P: HPI Chief complaint: encephalopathy Admitted From: Home History of present illness: Mr. 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 He presents today with concerns for change in mental status after presenting for a follow up visit to his PCP on the morning of 01/27/19. Patient states he was recently discharged from [facility] last Thursday for increased ammonia levels. He states on his visit to his PCP, she stated he was not acting himself and was acting confused. Patient states his family corroborated the story and states he was acting abnormal and not himself for the past few days. Patient also complains of blurred vision, lightheadedness and bilateral lower extremity edema that has not resolved since his last hospital visit. Patient states these symptoms tend to occur when his ammonia levels have increased. Patient states since last visit he has done as physician has stated, which was to increase his Bumex dosage and increase his lactulose dosage to 45 mg 4 times per day. He states he also walks 1 mile per day in attempt to decrease his lower extremity edema. The lactulose causes the patient to have 2-4 bowel movements per day. Patient also admits to nausea and vomiting times one daily, which occurs in the mornings, after he takes his medications. Patient has been admitted for increased levels of ammonia and concerns for intermittent encephalopathic symptoms. Past Med Surg Social Fam HX - Past Medical History Medical history: cirrhosis, diabetes, GERD, hypertension, liver disease, renal disease Additional medical history: alpha one intryptysin defiency. Macrocytosis. Encephalopathy. ESTELA. Gynecomastia. Anemia Psychiatric history: depression - Past Surgical History Surgical History: orthopedic, other, other Additional surgical history: carpal tunnel left. nodules vocal cords. left knee - Social History Smoking Status: Never smoker Smokeless Tobacco Status: No Alcohol use: none Drug use: none - Family History Mother Living Status: Hx Family Cardiac Disorders: No Hx Family Respiratory Disorders: No Hx Family Cancer: Yes Hx Family Endocrine Disorder: Yes Internal Medicine - H&P: Meds Multivitamin [One Daily Multivitamin] 1 tab PO DAILY 03/21/18 [History] Atorvastatin Calcium [Lipitor] 20 mg PO DAILY 09/04/18 [History] Pantoprazole Sodium [Protonix] 40 mg PO BID 09/04/18 [History] Zinc Gluconate 100 mg PO BID 09/04/18 [History] Ferrous Sulfate 325 mg PO DAILY #30 tablet 09/06/18 [Rx] metFORMIN [Glucophage] 500 mg PO BIDWM #60 tablet 09/06/18 [Rx] Ascorbate Calcium [Vitamin C] 500 mg PO QAM 12/16/18 [History] Glimepiride [Amaryl] 2 mg PO QAM 12/17/18 [History] Ondansetron ODT [Zofran ODT] 4 mg SL Q8H PRN 12/17/18 [History] Rifaximin [Xifaxan] 550 mg PO BID 30 Days #60 tablet 12/18/18 [Rx] Spironolactone 150 mg PO BID 01/20/19 [History] Bumetanide 2 mg PO DAILY 01/27/19 [History] Lactulose 30 gm PO QID 01/27/19 [History] Allergy/AdvReac Type Severity Reaction Status Date / Time No Known Allergies Allergy Verified 01/27/19 23:49 All Systems PM: A 10-system review of systems was performed and is negative for pertinent findings except as documented above in the HPI. Review of systems: Constitutional: Denies Fever, Chills, Headache, admits Dizziness Respiratory: Denies Shortness of breath, Chronic cough, hemoptysis, Dyspnea at rest, or activity Cardiovascular: Denies Chest pain, Syncope, palpitations, admits Peripheral edema Gastrointestinal: Denies hematochezia, admits Abdominal pain, nausea, vomiting, occasional BRB per rectum due to hemorrhoids Genitourinary: Denies Painful urination, hematuria, urinary retention Endocrine: denies unintentional Significant weight changes Skin: Denies rashes, or unexplained bruising - Constitutional Vitals: Temp Pulse Resp BP Pulse Ox 99.3 F 94 18 128/67 100 01/27/19 15:20 01/27/19 18:58 01/27/19 18:58 01/27/19 18:58 01/27/19 18:58 Exam: Gen: alert/orientedx3, no acute distress,no dysarthria Head: atraumatic, normocephalic. ENT: no oropharyngeal erythema, mucous membranes moist, EOMI, ARJUN. Neck: No thyromegaly appreciated. Neck supple no cervical lymphadenopathy. Resp: CTAB, no wheezing, rhonchi, or rhales. CV: RRR, Normal S1 and S2. No gallops, or rubs. +2 systolic murmur along L upper sternal border without radiation GI/Abdominal exam: bowel sounds throughout, obese, soft, RUQ tender, non- distended; hepatosplenomegaly palpated Skin: intact; no rashes, lesions, or bruising. Ext: No cyanosis, +2 dependent edema. pulses +2/4 bilaterally UE and LE. Neuro: no focal deficits, cooperative with exam. Internal Med - H&P Results - Labs CBC & Chem 7: 01/27/19 15:50 01/27/19 15:50 Labs: Short CBC 01/27/19 Range/Units 15:50 WBC 5.9 D (4.3-11.1) K/mcL Hgb 9.8 L (12.9-16.9) g/dL Hct 29.8 L (37.5-50.1) % Plt Count 93 L (140-400) K/mcL BMP 01/27/19 15:50 Sodium 138 Potassium 3.6 Chloride 102 Carbon Dioxide 32 H BUN 8 Creatinine 0.71 Glucose 157 H Calcium 8.8 Liver Function 01/27/19 Range/Units 15:50 Total Bilirubin 1.7 H (0.3-1.0) mg/dL Direct Bilirubin 0.4 H (0.0-0.2) mg/dL AST 77 H (13-39) Units/L ALT 57 H (7-52) Units/L Alkaline Phosphatase 154 H (34-104) Units/L Albumin 3.1 L (3.5-5.7) g/dL - Impressions ITS Impressions Chest X-Ray 01/27/19 15:55 IMPRESSION: No acute findings. D/ / Aurelio Buchanan MD / Aurelio Buchanan MD Interpreting Provider: Aurelio Buchanan MD - Assessment and Plan (1) Hepatic encephalopathy Current Visit: Yes Status: Resolved Assessment and plan: Patient initially presented with concerns for change in mental status after presenting to his PCP. On arrival to the ED patient's labs showed increased ammonia levels of 111. Although on physical exam patient was alert and oriented times three, showed no signs of dysarthria, or lethargy. Patient does have b/l dependent edema which has not resolved since last admission and a systolic murmur. Currently his encephalopathy has resolved although we will continue to decrease his ammonia levels and patient can follow up on an outpatient bases to obtain an echocardiogram for the murmur. Plan: - Fall precautions - Continue Lactulose - monitor I's/Os - Continue Bumetanide - Continue Spironolactone - Obtain Ammonia levels in am to follow downtrend (2) Anemia Current Visit: Yes Status: Chronic Assessment and plan: Patient is a 53Y male with Cirrhosis and pmhx of hemorrhoids who presents with concerns for change in mental status after an increase in ammonia levels. Patient was found to have anemia on CBC. Patient has multiple bowel movements per day and states on occasion he has bright red blood per rectum. He can not recall if he has had recent episodes of BRBPR. Plan: -Will continue to monitor H/H with CBC for downtrend. Qualifiers: Anemia type: unspecified type Qualified Code(s): D64.9 - Anemia, unspecified (3) DM type 2 (diabetes mellitus, type 2) Current Visit: Yes Status: Chronic Assessment and plan: Patient has DM2 currently on amaryl at home. Currently unsure if controlled on current regimen. Plan: - will obtain HgA1c - SSI before meals. - Accuchecks to be completed before meals and at bedtime. - basal insulin before bedtime. Qualifiers: Diabetes mellitus correction insulin use: without intermediate school teacher use Diabetes mellitus complication status: without complication Qualified Code(s): E11.9 - Type 2 diabetes mellitus without complications (4) DVT prophylaxis Current Visit: Yes Status: Acute Assessment and plan: heparin SQ - Time Spent With Patient Total time spent is greater than 50% in coordination of care (as documented) at patient's floor/unit and/or counseling patient: <Howie Reid - Last Filed: 01/28/19 05:59> Date of Encounter: 01/28/19 Internal Medicine - H&P: HPI History of present illness: Mr. Diaz is a 53 year old male All Systems PM: A 10-system review of systems was performed and is negative for pertinent findings except as documented above in the HPI. - Constitutional Vitals: Temp Pulse Resp BP Pulse Ox 97.4 F L 88 16 114/65 99 01/28/19 03:58 01/28/19 03:58 01/28/19 03:58 01/28/19 03:58 01/28/19 03:58 Internal Med - H&P Results - Labs CBC & Chem 7: 01/28/19 03:45 01/28/19 03:45 Labs: Short CBC 01/27/19 01/28/19 Range/Units 15:50 03:45 WBC 5.9 D 4.6 (4.3-11.1) K/mcL Hgb 9.8 L 9.3 L (12.9-16.9) g/dL Hct 29.8 L 28.3 L (37.5-50.1) % Plt Count 93 L 80 L (140-400) K/mcL Neutrophils # 2.5 (1.6-8.9) K/mcL BMP 01/27/19 01/28/19 15:50 03:45 Sodium 138 138 Potassium 3.6 3.4 L Chloride 102 104 Carbon Dioxide 32 H 28 BUN 8 8 Creatinine 0.71 0.64 L Glucose 157 H 116 H Calcium 8.8 8.1 L Liver Function 01/27/19 01/28/19 Range/Units 15:50 03:45 Total Bilirubin 1.7 H 1.6 H (0.3-1.0) mg/dL Direct Bilirubin 0.4 H (0.0-0.2) mg/dL AST 77 H 72 H (13-39) Units/L ALT 57 H 55 H (7-52) Units/L Alkaline Phosphatase 154 H 124 H (34-104) Units/L Albumin 3.1 L 2.7 L (3.5-5.7) g/dL Urine 01/28/19 Range/Units 04:00 Urine Color Dark Yellow (Yellow) Urine Clarity Clear (Clear) Urine pH 6.0 (5.0-8.0) pH Units Ur Specific [place] 1.030 H (1.010-1.025) Urine Protein Trace (Neg-Trace) mg/dL Urine Glucose (UA) Normal (Normal) mg/dL - Impressions ITS Impressions Chest X-Ray 01/27/19 15:55 IMPRESSION: No acute findings. D/ / Aurelio Buchanan MD / Aurelio Buchanan MD Interpreting Provider: Aurelio Buchanan MD - Time Spent With Patient Total time spent is greater than 50% in coordination of care (as documented) at patient's floor/unit and/or counseling patient: - Attending Attestation Patient seen and examined. I agree with the discharge plan as documented above by the resident. In summary, Mr. Diaz is a known cirrhotic despite reporting compliance with lactulose (3bm /day)and diet modification continues to have intermittent encephalopathy with confusion no known alleviating or exacerbating factor with no association of headahce, fever, chills, or abdominal andrade .Patient denied taking rifaximin, and reports of increased abdominal swelling that was noted by PCP and sent here. On admission patient's encephalopathy improved significantly. Plan is to observe overnight and provide rifaximin outpatient. Recommend increasing spironolactone to achieve 100:40 ratio. Bumex currently a 4 mg equivalent for 160 mg of Lasix. Anemia likely from chronic disease, and no current symptoms of bleeding. Hypokalemia replaced. Time spent on encounter: 36 minutes seen patient face to face around 11:pm 01/27/2019.
[2019-01-27] MEDS ORDERED: Naloxone 0.4 MG/ML INJ IVP PRN (20:28)
[2019-01-27] MEDS ORDERED: Ondansetron ODT 4 MG TAB.RAPDIS SL PRN (20:28)
[2019-01-27] MEDS ORDERED: Dextrose Gel 15 GM/37.5 ML TUBE PO PRN ×2 (22:56)
[2019-01-27] MEDS ORDERED: *HR* Dextrose 50 % in Water (Syg) 50 ML SYRINGE IVP PRN (22:56)
[2019-01-27] MEDS ORDERED: D5% in Water 1,000 ML IVC PRN (22:56)
[2019-01-28 04:25] LABS: Basophils % 1.5 %; Hemoglobin 9.3 g/dL (12.9-16.9); Immature Granulocytes % 0.4 % (0-4); Red Cell Distribution Width 16.1 % (11.5-14.5)
[2019-01-28 04:27] LABS: Basophils # 0.1 K/mcL (0.0-0.2); Eosinophils # 0.3 K/mcL (0.0-0.6); Eosinophils % 7.3 %; Hematocrit 28.3 % (37.5-50.1); Immature Platelets 2.1 % (1.1-6.1); Lymphocytes % 21.8 %; Mean Corpuscular HGB Conc 32.9 g/dL (31.6-35.5); Mean Corpuscular Hemoglobin 34.2 pg (28.0-33.3); Mean Platelet Volume 9.7 fL (9.4-12.4); Monocytes # 0.7 K/mcL (0.0-1.3); Monocytes % 14.3 %; Neutrophils # 2.5 K/mcL (1.6-8.9); Nucleated Red Blood Cells 0.4 /100 WBC (0); Red Blood Count 2.72 M/mcL (4.19-5.50); Segmented Neutrophils % 54.7 %; White Blood Count 4.6 K/mcL (4.3-11.1)
[2019-01-28 04:30] LABS: Platelet Count 80 K/mcL (140-400)
[2019-01-28 04:35] LABS: INR 1.4; Prothrombin Time 16.4 Seconds (9.4-12.1)
[2019-01-28 04:44] LABS: Alanine Aminotransferase 55 Units/L (7-52); Albumin 2.7 g/dL (3.5-5.7); Albumin/Globulin Ratio 0.9 (1.1-2.2); Alkaline Phosphatase 124 Units/L (34-104); Aspartate Amino Transferase 72 Units/L (13-39); BUN/Creatinine Ratio 13 (6-26); Bilirubin,Total 1.6 mg/dL (0.3-1.0); Blood Urea Nitrogen 8 mg/dL (6-20); Calcium 8.1 mg/dL (8.6-10.3); Carbon Dioxide 28 mEq/L (23-29); Chloride 104 mEq/L (98-107); Globulin 2.9 g/dL (2.4-3.5); Glucose 116 mg/dL (70-105); Magnesium 1.8 mg/dL (1.6-2.6); Osmolality,Calculated 285 (280-300); Phosphorous 2.9 mg/dL (2.7-4.5); Potassium 3.4 mEq/L (3.5-5.1); Sodium 138 mEq/L (136-145); Total Protein 5.6 g/dL (6.4-8.9); eGFR For African Americans > 60 (> 60); eGFR For Non-African Americans > 60 (> 60)
[2019-01-28 04:55] LABS: Bilirubin,Urine Negative (Negative); Blood,Urine Negative (Negative); Clarity,Urine Clear (Clear); Color,Urine Dark Yellow (Yellow); Glucose,Urine (UA) Normal (Normal); Ketones,Urine Negative (Negative); Leukocyte Esterase,Urine Negative (Negative); Nitrite,Urine Negative (Negative); Protein,Urine Trace mg/dL (Neg-Trace); Urobilinogen,Urine Normal (Normal)
[2019-01-28 05:13] LABS: Estimated Average Glucose 137 mg/dl
[2019-01-28] MEDS ORDERED: Ondansetron ODT 4 MG TAB.RAPDIS SL PRN (06:25)
[2019-01-28] MEDS ORDERED: Potassium Chloride Elixir 20 MEQ/15 ML UDC PO ONE (07:34)
[2019-01-28] MEDS: Bumetanide 1 MG TABLET PO SCH (08:26)
[2019-01-28] MEDS: Lactulose Oral Soln 20 GM/30 ML UDC PO SCH ×4 (08:28→20:49)
[2019-01-28] MEDS: Insulin LISPRO 300 UNITS/3 ML VIAL SQ SCH ×3 (08:29→16:19)
--- NOTE | 2019-01-28 08:36 | Gastroenterology Consult Note ---
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 Beckman sees hepatology in [place] His MELD score is 12, reports she is currently not on a transplant list Previous EGD on 12/15/17 showed moderate portal hypertension and gastric body and fundus additionally pathology confirmed Emerson esophagus CT of the abdomen on 12/10/28 showed nodular contour of the liver consistent with liver cirrhosis as well as moderate portal hypertension with distal esophageal and gastric varices Continue lactulose and rifaximin Qualifiers: Hepatic cirrhosis type: unspecified hepatic cirrhosis Ascites presence: without ascites Qualified Code(s): K74.60 - Unspecified cirrhosis of liver (2) Esophageal varices Current Visit: No Status: Chronic Assessment and plan: History of esophageal varices secondary to liver cirrhosis Denies any episodes of hematemesis or melena recently On omeprazole and spironolactone Qualifiers: Esophageal varices type: unspecified type Esophageal varices bleeding: without bleeding Qualified Code(s): I85.00 - Esophageal varices without bleeding (3) Hepatic encephalopathy Current Visit: Yes Status: Resolved Assessment and plan: Presented to the ED complaining of ongoing confusion even with compliance with lactulose and rifaximin Ammonia presentation was on 111 and prior admission was noted to be 54 on 01/21/19 Since admission confusion has resolved Continue lactulose and rifaximin Will order 200 mg zinc TID (4) Anemia Current Visit: Yes Status: Chronic Assessment and plan: Hemoglobin today noted to be 9.3 appears to be chronic one year ago hemoglobin was within baseline Hemoglobin does appear macrocytic likely from chronic disease given B12 and folate are within normal limits Denies hematemesis or hematochezia Given history of Emerson's esophagus would recommend repeat outpatient endoscopy Further recommendations by Dr. Beckman Qualifiers: Anemia type: unspecified type Qualified Code(s): D64.9 - Anemia, unspecified - Time Spent With Patient Total time spent is greater than 50% in coordination of care (as documented) at patient's floor/unit and/or counseling patient: GI History of Present Illness - Data of Consult Requesting Physician: Drake Velez - Consult Narrative History of present illness: Mr. Diaz is a 53 year old male with past medical history of cirrhosis, diabetes, GERD, hypertension, alpha-1 trypsin deficiency who presented to the ED on 01/27/19 complaining of confusion ongoing which has worsened in the past few days. He reports that he was recently admitted to the hospital was discharged on 01/21/19. Reported prior to presentation he was not feeling like himself and his family members also noted he was bit more confused while trying to converse with him. He does have significant history of hyperammonemia takes lactulose daily and reports 3-4 bowel movements daily and is also compliant with rifaximin. This morning he reports that his symptoms have completely resolved, he is oriented to person place and time. Reports ongoing bowel movements which are described as solid in consistency, denying hematochezia or hematemesis. He is additionally denying abdominal pain does reports lower extremity edema and his PCP recently doubled his Bumex dose. This morning he is sitting comfortably in bedside chair denying any further symptoms of confusion, nausea, chest pain, shortness of breath. Past Med Surg Social Fam HX - Past Medical History Medical history: cirrhosis, diabetes, GERD, hypertension, liver disease, renal disease Additional medical history: alpha one intryptysin defiency. Macrocytosis. Encephalopathy. ESTELA. Gynecomastia. Anemia Psychiatric history: depression - Past Surgical History Surgical History: orthopedic, other, other Additional surgical history: carpal tunnel left. nodules vocal cords. left knee - Social History Smoking Status: Never smoker Smokeless Tobacco Status: No Alcohol use: none Drug use: none - Family History Mother Living Status: Hx Family Cardiac Disorders: No Hx Family Respiratory Disorders: No Hx Family Cancer: No Hx Family Endocrine Disorder: Yes - Gastrointestinal Gastrointestinal: Absent: abdominal pain, diarrhea, nausea, vomiting - Constitutional Constitutional: no fatigue, no weight gain - EENT Nose, mouth and throat: Absent: dysphagia, sore throat - Cardiovascular Cardiovascular ROS: Absent: chest pain, palpitations - Respiratory Respiratory IM: Absent: cough, dyspnea - Hematologic/Lymphatic Hematologic/Lymphatic pediatric: Absent: easy bleeding - Musculoskeletal Musculoskeletal ROS GI: Absent: back pain, joint swelling - Integumentary Integumentary GI: Absent: pruritis, rash - Endocrine Endocrine IM: Absent: fatigue - Constitutional Vitals: Temp Pulse Resp BP Pulse Ox 98.0 F 84 15 112/64 96 01/28/19 06:47 01/28/19 06:47 01/28/19 06:47 01/28/19 06:47 01/28/19 06:47 - Head Head exam: Present: atraumatic, normal inspection - Eye Eye exam: Present: EOMI, sclera anicteric. Absent: conjunctival injection - ENT ENT exam: Present: mucous membranes moist, normal oropharynx - Neck Neck exam general surgery: Present: full ROM, trachea midline - Respiratory Respiratory exam: Present: CTAB. Absent: rhonchi, wheezes - Cardiovascular Cardiovascular exam: Present: RRR, +S1, +S2 - GI/Abdominal GI/Abdominal exam: Present: soft. Absent: distended, firm, tenderness - Extremities Exam Extremities exam: Present: full ROM, pedal edema (+2 pitting edema bilateral lower extremity). Absent: calf tenderness - Skin Skin exam: Present: dry, intact Results - Labs CBC & Chem 7: 01/28/19 03:45 01/28/19 03:45 Labs: Last Result 01/28/19 03:45 Calcium 8.1 L Entire Visit 01/28/19 01/28/19 01/28/19 03:45 03:45 03:45 Hgb 9.3 L Hct 28.3 L PT 16.4 H Total Bilirubin 1.6 H AST 72 H ALT 55 H - ABG ABG results: PT/INR, D-dimer PT 16.4 Seconds (9.4-12.1) H 01/28/19 03:45 - Impressions Impressions Chest X-Ray 01/27/19 15:55 IMPRESSION: No acute findings. D/ / Aurelio Buchanan MD / Aurelio Buchanan MD Interpreting Provider: Aurelio Buchanan MD Consult Discharge Plan - Plan Referrals: Daphnie Calvillo, [facility] [Primary Care Provider] - <Lilia Beckman - Last Filed: 01/28/19 19:24> Date of Encounter: 01/28/19 Time of Encounter: 11:00 - Time Spent With Patient Total time spent is greater than 50% in coordination of care (as documented) at patient's floor/unit and/or counseling patient: GI History of Present Illness - Data of Consult Requesting Physician: Draek Velez - Consult Narrative History of present illness: Mr. Diaz is a 53 year old male - Constitutional Vitals: Temp Pulse Resp BP Pulse Ox 98.6 F 102 14 114/61 98 01/28/19 19:19 01/28/19 19:19 01/28/19 19:19 01/28/19 19:19 01/28/19 19:19 Results - Labs CBC & Chem 7: 01/28/19 03:45 01/28/19 03:45 Labs: Last Result 01/28/19 17:30 Stool Occult Blood Positive A - ABG ABG results: PT/INR, D-dimer PT 16.4 Seconds (9.4-12.1) H 01/28/19 03:45 - Attending Attestation I examined this patient and my medical decision-making was reviewed with the Resident Physician. I agree with the documented findings, disposition and treatment plan as described except to the extent set forth below. Pt seen. Pt more alert now. O/E AAO. A: pt with cirrhosis with encephalopathy. Rec: Latulose, rifaximin, po Zinc
[2019-01-28] MEDS ORDERED: Lactulose Oral Soln 20 GM/30 ML UDC PO SCH (09:00)
[2019-01-28] MEDS ORDERED: Bumetanide 1 MG TABLET PO SCH (09:00)
--- NOTE | 2019-01-28 12:54 | Internal Med Progress Note ---
Hospitalist Progress Note - Encounter Date of Encounter: 01/28/19 Time of Encounter: 09:35 - Subjective Interval History: Patient was seen this morning, he looks more alert and oriented and he feels better. He was also seen with his fiancee who thinks that he is doing better. He denied chest pain, shortness of breath, palpitation. He has no nausea sc heduled or abdominal pain. - Exam Vitals: Temp Pulse Resp BP Pulse Ox 98.5 F 81 16 146/82 97 01/28/19 11:43 01/28/19 11:43 01/28/19 11:43 01/28/19 11:43 01/28/19 11:43 Exam: General: Patient is alert, oriented 3. Morbidly obese Head: Atraumatic, normal inspection, normocephalic. Eye: EOMI, PERRLA, no scleral icterus noted. ENT: Mucous membranes moist. Neck: Normal inspection, Respiratory: No respiratory distress, rhonchi, or wheezes noted. Cardiovascular: Regular rate and regular rhythm, +2 bilateral lower extremity edema GI: Soft, nondistended, normal bowel sounds. Extremities:No joint swelling, pedal edema, or tenderness noted. Neurological: Alert, oriented 3, no focal deficits. Mild asterixis Psychiatric: normal affect, normal mood. Skin: Dry, intact, warm. Normal color. No rashes. - Assessment and Plan (1) Hepatic encephalopathy Current Visit: Yes Status: Resolved (2) Cirrhosis of liver Current Visit: Yes Status: Chronic (3) DM type 2 (diabetes mellitus, type 2) Current Visit: Yes Status: Chronic (4) Thrombocytopenia Current Visit: Yes Status: Chronic (5) DVT prophylaxis Current Visit: Yes Status: Acute - Summary of Assessment and Plan Summary of Assessment and Plan: 53-year-old male with history of alpha-1 antitrypsin deficiency, IDDM, ESTELA who came in TO THE HOSPITAL DUE TO CHANGE IN MENTAL STATUS. His symptoms are managed as following: Hepatic encephalopathy: Ammonia was 111, has a frequent admissions. Denies skipping his lactulose or rifaximin. Feels better today and almost back to baseline. GI consulted. No signs of bleeding, urine cultures and blood cultures are pending to rule out infection etiology. No abdominal pain for SBP. Patient is hemodynamically stable and afebrile. Liver cirrhosis: MELD-Na 13, continue Bumex and spironolactone. No EV ON LAST EGD. Thrombocytopenia: 2/2 above. Macrocytic anemia: Hemoglobin has been stable, no signs of bleeding. We will check B12, folic acid, TSH, ferritin and iron profile. Hypokalemia: Was given an replacement, check potassium and Mag. Obesity: Lifestyle recommendation discussed with the patient. Yaron esophagus: continue ppi. DVT ppx: Sc heparin. - Time Spent with Patient Total time spent is greater than 50% in coordination of care (as documented) at patient's floor/unit and/or counseling patient: Plan of Care Discussed with: patient Internal Medicine: Result - Labs CBC & Chem 7: 01/28/19 03:45 01/28/19 03:45 Labs: Short CBC 01/27/19 01/28/19 Range/Units 15:50 03:45 WBC 5.9 D 4.6 (4.3-11.1) K/mcL Hgb 9.8 L 9.3 L (12.9-16.9) g/dL Hct 29.8 L 28.3 L (37.5-50.1) % Plt Count 93 L 80 L (140-400) K/mcL Neutrophils # 2.5 (1.6-8.9) K/mcL BMP 01/27/19 01/28/19 15:50 03:45 Sodium 138 138 Potassium 3.6 3.4 L Chloride 102 104 Carbon Dioxide 32 H 28 BUN 8 8 Creatinine 0.71 0.64 L Glucose 157 H 116 H Calcium 8.8 8.1 L Liver Function 01/27/19 01/28/19 Range/Units 15:50 03:45 Total Bilirubin 1.7 H 1.6 H (0.3-1.0) mg/dL Direct Bilirubin 0.4 H (0.0-0.2) mg/dL AST 77 H 72 H (13-39) Units/L ALT 57 H 55 H (7-52) Units/L Alkaline Phosphatase 154 H 124 H (34-104) Units/L Albumin 3.1 L 2.7 L (3.5-5.7) g/dL Urine 01/28/19 Range/Units 04:00 Urine Color Dark Yellow (Yellow) Urine Clarity Clear (Clear) Urine pH 6.0 (5.0-8.0) pH Units Ur Specific [place] 1.030 H (1.010-1.025) Urine Protein Trace (Neg-Trace) mg/dL Urine Glucose (UA) Normal (Normal) mg/dL - ABG Interpretation ABG results: PT/INR, D-dimer PT 16.4 Seconds (9.4-12.1) H 01/28/19 03:45 - Impressions Impressions Chest X-Ray 01/27/19 15:55 IMPRESSION: No acute findings. D/ / Aurelio Buchanan MD / Aurelio Buchanan MD Interpreting Provider: Aurelio Buchanan MD Consult Discharge Plan - Plan Referrals: Daphnie Calvillo CNP [Primary Care Provider] - (2) Cirrhosis of liver Qualifiers: Hepatic cirrhosis type: unspecified hepatic cirrhosis Ascites presence: without ascites Qualified Code(s): K74.60 - Unspecified cirrhosis of liver (3) DM type 2 (diabetes mellitus, type 2) Qualifiers: Diabetes mellitus terminal gauger insulin use: without terminal gauger use Diabetes mellitus complication status: without complication Qualified Code(s): E11.9 - Type 2 diabetes mellitus without complications
[2019-01-28] MEDS ORDERED: Albumin 25% 25gram/100mL 25 GM/100 ML IV.SOLN IVPB ONE (12:58)
[2019-01-28] MEDS: Zinc Sulfate 220 MG CAPSULE PO SCH ×2 (16:15→20:50)
[2019-01-28] MEDS ORDERED: Insulin DETEMIR 100 UNIT/ML X5UNITS SQ SCH (21:00)
[2019-01-29 06:23] LABS: Hemoglobin 8.4 g/dL (12.9-16.9); Mean Corpuscular Hemoglobin 34.3 pg (28.0-33.3); Red Blood Count 2.45 M/mcL (4.19-5.50); Red Cell Distribution Width 16.1 % (11.5-14.5)
[2019-01-29 06:25] LABS: Immature Platelets 1.8 % (1.1-6.1); Mean Corpuscular HGB Conc 32.3 g/dL (31.6-35.5); Mean Corpuscular Volume 106.1 fL (83.0-100.0); Mean Platelet Volume 10.3 fL (9.4-12.4); White Blood Count 3.5 K/mcL (4.3-11.1)
[2019-01-29 06:33] LABS: INR 1.4
[2019-01-29 06:44] LABS: Alanine Aminotransferase 49 Units/L (7-52); Albumin 2.8 g/dL (3.5-5.7); Albumin/Globulin Ratio 1.1 (1.1-2.2); Alkaline Phosphatase 119 Units/L (34-104); Aspartate Amino Transferase 66 Units/L (13-39); BUN/Creatinine Ratio 15 (6-26); Bilirubin,Direct 0.5 mg/dL (0.0-0.2); Bilirubin,Indirect 1.2 mg/dL (0.0-1.2); Bilirubin,Total 1.7 mg/dL (0.3-1.0); Blood Urea Nitrogen 10 mg/dL (6-20); Calcium 8.4 mg/dL (8.6-10.3); Carbon Dioxide 28 mEq/L (23-29); Chloride 104 mEq/L (98-107); Globulin 2.5 g/dL (2.4-3.5); Glucose 213 mg/dL (70-105); Osmolality,Calculated 287 (280-300); Potassium 3.5 mEq/L (3.5-5.1); Sodium 136 mEq/L (136-145); Total Protein 5.3 g/dL (6.4-8.9); eGFR For African Americans > 60 (> 60); eGFR For Non-African Americans > 60 (> 60)
[2019-01-29 06:58] LABS: Thyroid Stimulating Hormone 3.237 mcIU/mL (0.340-5.600)
[2019-01-29 07:14] LABS: Folate > 22.3 ng/mL (3.0-16.0); Vitamin B12 > 1500 pg/mL (250-1100)
[2019-01-29 07:25] VITALS: BP 103/64
[2019-01-29] MEDS: Bumetanide 1 MG TABLET PO SCH (08:37)
[2019-01-29] MEDS: Lactulose Oral Soln 20 GM/30 ML UDC PO SCH (08:37)
[2019-01-29] MEDS: Insulin LISPRO 300 UNITS/3 ML VIAL SQ SCH (08:37)
[2019-01-29] MEDS: Zinc Sulfate 220 MG CAPSULE PO SCH (08:37)
--- NOTE | 2019-01-29 10:01 | Discharge Summary ---
- NOTES TO OUTPATIENT PROVIDER Notes to Outpatient Provider: Patient was admitted for confusion related to hyper ammonia. Was evaluated by GI and his clinical course was improved. His ammonia level did not improve but he is clinically is back to baseline. Follow- up with GI as outpatient for upper endoscopy given his history of Emerson and anemia. He also needs to follow with his transplant specialist. Orders not resulted at time of discharge: Pending orders 01/28/19 07:50 Culture,Blood [BC] Routine Date of Encounter: 01/29/19 Time of Encounter: 09:00 - Discharge Diagnosis (1) Hepatic encephalopathy Priority: Primary Status: Resolved (2) Cirrhosis of liver Priority: Secondary Status: Chronic Qualifiers: Hepatic cirrhosis type: unspecified hepatic cirrhosis Ascites presence: without ascites Qualified Code(s): K74.60 - Unspecified cirrhosis of liver (3) DM type 2 (diabetes mellitus, type 2) Priority: Secondary Status: Chronic Qualifiers: Diabetes mellitus retirement insulin use: without retirement use Diabetes mellitus complication status: without complication Qualified Code(s): E11.9 - Type 2 diabetes mellitus without complications (4) Thrombocytopenia Priority: Secondary Status: Chronic (5) DVT prophylaxis Priority: Secondary Status: Acute Hospital course: Mr. Diaz is a 53 year old male with history of alpha-1 antitrypsin deficiency liver cirrhosis, IDDM, ESTELA who came into the hospital due to hepatic encephalopathy and high ammonia level. Patient was treated with lactulose, rifaximin and zinc with significant improvement in his mental status but no change in his ammonia level. I believe patient is stable for discharge as we usually follow clinical status more than ammonia trends. He was full up with GI as outpatient for upper endoscopy given his risk of upper GI bleed with cirrhosis and history of Emerson. His hemoglobin remained stable. Today, patient is hemodynamically stable and clinically doing better. He will be discharged home in stable condition. Discharge discussed with: patient - Time Spent with Patient Total time spent providing and/or coordinating discharge services: 52 minutes - Discharge Medications Prescriptions: Continued Multivitamin [One Daily Multivitamin] 1 tab PO DAILY Ascorbate Calcium [Vitamin C] 500 mg PO QAM Glimepiride [Amaryl] 2 mg PO QAM Ondansetron ODT [Zofran ODT] 4 mg SL Q8H PRN PRN Reason: NAUSEA/VOMITING Rifaximin [Xifaxan] 550 mg PO BID 30 Days #60 tablet Spironolactone 150 mg PO BID Lactulose 30 gm PO QID Bumetanide 2 mg PO DAILY Pantoprazole Sodium [Protonix] 40 mg PO BID Zinc Gluconate 100 mg PO BID Atorvastatin Calcium [Lipitor] 20 mg PO DAILY Ferrous Sulfate 325 mg PO DAILY #30 tablet metFORMIN [Glucophage] 500 mg PO BIDWM #60 tablet Home Medications: Multivitamin [One Daily Multivitamin] 1 tab PO DAILY 08/12/17 [History] Atorvastatin Calcium [Lipitor] 20 mg PO DAILY 09/04/18 [History] Pantoprazole Sodium [Protonix] 40 mg PO BID 09/04/18 [History] Zinc Gluconate 100 mg PO BID 09/04/18 [History] Ferrous Sulfate 325 mg PO DAILY #30 tablet 09/06/18 [Rx] metFORMIN [Glucophage] 500 mg PO BIDWM #60 tablet 09/06/18 [Rx] Ascorbate Calcium [Vitamin C] 500 mg PO QAM 12/16/18 [History] Glimepiride [Amaryl] 2 mg PO QAM 12/17/18 [History] Ondansetron ODT [Zofran ODT] 4 mg SL Q8H PRN 12/17/18 [History] Rifaximin [Xifaxan] 550 mg PO BID 30 Days #60 tablet 12/18/18 [Rx] Spironolactone 150 mg PO BID 01/20/19 [History] Bumetanide 2 mg PO DAILY 01/27/19 [History] Lactulose 30 gm PO QID 01/27/19 [History] Allergies/Adverse Reactions: Allergy/AdvReac Type Severity Reaction Status Date / Time No Known Allergies Allergy Verified 01/27/19 23:49 Date of admission: 01/27/19 19:22 Primary care physician: Daphnie Calvillo CNP Consults: 01/27/19 20:30 Consult to Salesperson Furs [CONS] Routine Reason for SW Consult: Needs rifaximin medication assistance. 01/28/19 07:34 Consult to Gastroenterology [CONS] Routine Consulting Provider: [facility] [place] Reason for Consult: AMS, hyper ammonia level Call Completed: No - Constitutional Vitals: Temp Pulse Resp BP Pulse Ox 98.5 F 85 14 103/64 97 01/29/19 07:24 01/29/19 07:24 01/29/19 07:24 01/29/19 07:24 01/29/19 07:24 Exam: General: Patient is alert, oriented 3. Morbidly obese Head: Atraumatic, normal inspection, normocephalic. Eye: EOMI, PERRLA, no scleral icterus noted. ENT: Mucous membranes moist. Neck: Normal inspection, Respiratory: No respiratory distress, rhonchi, or wheezes noted. Cardiovascular: Regular rate and regular rhythm, +2 bilateral lower extremity edema GI: Soft, nondistended, normal bowel sounds. Extremities:No joint swelling, pedal edema, or tenderness noted. Neurological: Alert, oriented 3, no focal deficits. no asterixis Psychiatric: normal affect, normal mood. Skin: Dry, intact, warm. Normal color. No rashes. - Patient Status Disposition: Home, Self-Care Condition: Good Functional capacity at discharge: independent ambulation Overall status at discharge: patient is back to baseline - Discharge Instructions Follow Up With: Daphnie Calvillo CNP [Primary Care Provider] - Lilia Beckman MD [Partnered Physician] - - Diet and Activity Activity: resume usual activities as tolerated Diet: diabetic diet
--- NOTE | 2019-01-31 08:50 | Electrocardiograph Report ---
[place] [id number] Test Date: 2019-01-27 Pat Name: Bentley Diaz Department: [id number] Room: 3A22 Gender: M Comic Writer: : 1965 Requested By: Matti Pool Order Number: [id number] Reading MD: Cooper Murrell Measurements Intervals [place] Rate: 95 P: 19 AK: 169 QRS: 33 QRSD: 91 T: 18 QT: 387 QTc: 487 Interpretive Statements Sinus rhythm Low voltage, precordial leads Abnormal R-wave progression, early transition Borderline prolonged QT interval Electronically Signed On 01-31-2019 8:49:25 EDT by Cooper Murrell
== END 2019-01-29 10:49 | disposition home or self-care (01) ==
LOC: EMEROOARM 15:11 → 3ANU 15:11 → SUATTDRO 19:22 → 3ANU 20:45
PROVIDERS: ADMIT Internal Medicine; ATTEND Internal Medicine

== ENCOUNTER 2019-02-01 18:16 | Inpatient (IN) ==
[2019-02-01] MEDS ORDERED: Lactulose 200 GM, Sodium Chloride IRRigation 700 ML RC ONE (21:56)
[2019-02-01] MEDS ORDERED: 0.9 % Sodium Chloride 1,000 ML IVC SCH (23:45)
[2019-02-01] MEDS ORDERED: Naloxone 0.4 MG/ML INJ IVP PRN (23:57)
[2019-02-01] MEDS ORDERED: *HR* LORazepam 2 MG/ML VIAL IVP PRN (23:57)
[2019-02-01] MEDS ORDERED: Ondansetron ODT 4 MG TAB.RAPDIS SL PRN (23:57)
[2019-02-02] MEDS: Lactulose Oral Soln 20 GM/30 ML UDC PO SCH ×5 (01:28→23:46)
--- NOTE | 2019-02-02 01:35 | Internal Med History&Physical ---
Date of Encounter: 02/02/19 Time of Encounter: 01:29 Internal Medicine - H&P: HPI Chief complaint: encephalopathy Admitted From: Home Plans for Post Hospital Care: Home History of present illness: Mr. Diaz is a 53 year old male with past medical history of cirrhosis, type 2 diabetes, thrombocytopenia presented to the ED is transferred from [facility] for confusion. Face to face encounter occurred at 11:50pm. History is limited due to patient's clinical syndrome. On chart review patient has recently discharged for hepatic encephalopathy. During this admission patient was evaluated by GI with improvement of clinical course. Patient was discharged to follow up with GI as outpatient in addition to transplant specialist. In reviewing the chart, patient was reportedly found in the car at 9 AM confused and was brought in by his family. No family at bedside at this time. Past Med Surg Social Fam HX - Past Medical History Medical history: cirrhosis, diabetes, GERD, hypertension, liver disease, renal disease Additional medical history: alpha one intryptysin defiency. Macrocytosis. Encephalopathy. ESTELA. Gynecomastia. Anemia Psychiatric history: depression - Past Surgical History Surgical History: orthopedic, other, other Additional surgical history: carpal tunnel left. nodules vocal cords. left knee - Social History Smoking Status: Never smoker Smokeless Tobacco Status: No Alcohol use: none Drug use: none - Family History Mother Living Status: Hx Family Cardiac Disorders: No Hx Family Respiratory Disorders: No Hx Family Cancer: No Hx Family Endocrine Disorder: Yes Internal Medicine - H&P: Meds Multivitamin [One Daily Multivitamin] 1 tab PO DAILY 08/12/17 [History] Atorvastatin Calcium [Lipitor] 20 mg PO DAILY 09/04/18 [History] Pantoprazole Sodium [Protonix] 40 mg PO BID 09/04/18 [History] Zinc Gluconate 100 mg PO BID 09/04/18 [History] Ferrous Sulfate 325 mg PO DAILY #30 tablet 09/06/18 [Rx] metFORMIN [Glucophage] 500 mg PO BIDWM #60 tablet 09/06/18 [Rx] Ascorbate Calcium [Vitamin C] 500 mg PO QAM 12/16/18 [History] Glimepiride [Amaryl] 2 mg PO QAM 12/17/18 [History] Ondansetron ODT [Zofran ODT] 4 mg SL Q8H PRN 12/17/18 [History] Rifaximin [Xifaxan] 550 mg PO BID 30 Days #60 tablet 12/18/18 [Rx] Spironolactone 150 mg PO BID 01/20/19 [History] Bumetanide 2 mg PO DAILY 01/27/19 [History] Lactulose 30 gm PO QID 01/27/19 [History] Allergy/AdvReac Type Severity Reaction Status Date / Time No Known Allergies Allergy Verified 01/27/19 23:49 All Systems PM: A 10-system review of systems was performed and is negative for pertinent findings except as documented above in the HPI. Review of systems: Unable to obtain due to clinical symptoms. - Constitutional Vitals: Temp Pulse Resp BP Pulse Ox 98.1 F 94 15 114/73 99 02/01/19 23:31 02/01/19 23:31 02/01/19 23:31 02/01/19 23:31 02/01/19 23:31 Exam: General Appearance: Appearing as age, well-nourished. Head: Atraumatic normocephalic Skin: Normal texture, normal turgor, warm, dry. Eyes: Conjunctivae not pale with no erythema, drainage, or ulcers. minimally icteric. Neck: No Lymphadenopathy in the anterior/posterior cervical chain. No thyromegaly, masses or ulcers. Trachea midline. Heart: RRR, no murmurs. Capillary refill 3 seconds Lungs: No accessory muscle usage, lungs clear to auscultation bilaterally, no wheezes or crackles. Extremities: No pitting edema, No clubbing, No cyanosis. Abdomen: morbid obese, Non-distended, normoactive bowel sounds. non-tender to palpation, no hepatomegally. No guarding. Neuro: AOx0 with no focal deficits. MSK: Strength 5/5 Upper extremity equal bilaterally. Strength 5/5 Lower extremity equal bilaterally Internal Med - H&P Results - Labs CBC & Chem 7: 02/02/19 05:27 02/02/19 05:27 - Summary of Assessment and Plan Summary of Assessment and Plan: 1.Hepatic encephalopathy: Secondary to decompensated liver cirrhosis. Continue lactulose and rifaximin. GI consultation. Patient would benefit from liver transplant evaluation 2.Macrocytic anemia: Secondary to liver disease. B12 and folate checked on 01/29 Reticulocyte count ordered to check for concern for acute blood loss. Type and screen ordered. 3.Hyperglycemia: Uncontrolled. Insulin sliding scale. 4. Thrombocytopenia: Secondary to liver disease. No sign of bleeding at this time. Continue to monitor DVT prophylaxis: Heparin Disposition: Likely less than two-day stay depending on response. - Time Spent With Patient Total time spent is greater than 38 minutes 50% in coordination of care (as documented) at patient's floor/unit and/or counseling patient: Greater than 35 minutes
[2019-02-02 05:44] LABS: Hematocrit 26.5 % (37.5-50.1); Immature Reticulocyte % 29.9 % (11.0-38.0); Mean Corpuscular Volume 107.3 fL (83.0-100.0); Red Blood Count 2.47 M/mcL (4.19-5.50); Red Cell Distribution Width 16.6 % (11.5-14.5); Retculocyte # 0.15 M/mcL (0.05-0.10); Reticulocyte % 6.3 % (1.6-2.8)
[2019-02-02 05:46] LABS: Basophils # 0.1 K/mcL (0.0-0.2); Basophils % 1.8 %; Eosinophils # 0.4 K/mcL (0.0-0.6); Eosinophils % 8.9 %; Hemoglobin 8.6 g/dL (12.9-16.9); Immature Granulocytes % 0.2 % (0-4); Immature Platelets 2.1 % (1.1-6.1); Lymphocytes # 0.9 K/mcL (0.6-4.6); Lymphocytes % 19.5 %; Mean Corpuscular HGB Conc 32.5 g/dL (31.6-35.5); Mean Corpuscular Hemoglobin 34.8 pg (28.0-33.3); Mean Platelet Volume 9.7 fL (9.4-12.4); Monocytes # 0.5 K/mcL (0.0-1.3); Monocytes % 10.5 %; Segmented Neutrophils % 59.1 %; White Blood Count 4.5 K/mcL (4.3-11.1)
[2019-02-02 05:48] LABS: Neutrophils # 2.7 K/mcL (1.6-8.9); Platelet Count 80 K/mcL (140-400)
[2019-02-02 05:59] LABS: INR 1.4; Prothrombin Time 15.7 Seconds (9.4-12.1)
[2019-02-02] MEDS ORDERED: *HR* Heparin 5,000 UNIT/ML VIAL SQ SCH (06:00)
[2019-02-02 06:01] LABS: Alanine Aminotransferase 51 Units/L (7-52); Albumin 2.8 g/dL (3.5-5.7); Albumin/Globulin Ratio 1.1 (1.1-2.2); Alkaline Phosphatase 105 Units/L (34-104); Aspartate Amino Transferase 74 Units/L (13-39); BUN/Creatinine Ratio 16 (6-26); Bilirubin,Total 1.9 mg/dL (0.3-1.0); Blood Urea Nitrogen 12 mg/dL (6-20); Calcium 8.7 mg/dL (8.6-10.3); Carbon Dioxide 24 mEq/L (23-29); Chloride 110 mEq/L (98-107); Ethanol < 10 mg/dL (Less than 10); Globulin 2.6 g/dL (2.4-3.5); Glucose 116 mg/dL (70-105); Magnesium 1.9 mg/dL (1.6-2.6); Osmolality,Calculated 291 (280-300); Phosphorous 3.2 mg/dL (2.7-4.5); Potassium 3.7 mEq/L (3.5-5.1); Sodium 140 mEq/L (136-145); Total Protein 5.4 g/dL (6.4-8.9); eGFR For African Americans > 60 (> 60); eGFR For Non-African Americans > 60 (> 60)
--- NOTE | 2019-02-02 10:34 | Gastroenterology Consult Note ---
Date of Encounter: 02/02/19 Time of Encounter: 09:45 - Assessment and plan (1) Anemia Current Visit: No Status: Chronic Assessment and plan: On arrival to ED, Hgb 8.9 and was 8.6 this AM. Hgb 10 on 12/16/2018 and 11.8 on 09/22/2018. Continue to monitor CBC and transfuse PRBC as needed. Plan for EGD tomorrow to r/o esophagitis, esophageal varices, gastritis, duodenitis, PUD, MW tear, or AVM. Keep NPO at midnight. Last EGD 12/15/[address] 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 Qualifiers: Anemia type: unspecified type Qualified Code(s): D64.9 - Anemia, unspe cified (2) Cirrhosis of liver Current Visit: No Status: Chronic Assessment and plan: MELD-Na 13 and Child-Ward class B. Liver US 01/20/2019 shows hepatic cirrhosis, no liver mass noted. AFP 5 on 01/20/2019. Alpha-1 antitrypsin normal on 07/23/2017 and Z allele heterozygous. Titrate Lactulose for 2-4 BMs daily. Continue Rifaximin 550 mg BID. Start Zinc 220 mg daily. Ammonia 54 on 01/21/2019 and 111 on 01/27/2019. Ammonia 203 at ED yesterday, recheck ammonia today. He follows with Dr. Freeman at [facility]. Lifestyle Changes: 1. Total abstinence from alcohol including social drinking. 2. No smoking. 3. Gradual loss of weight. 4. Drink at least 3 cups of coffee due to its antioxidant effects in the liver, it reduces risk of HCC and advance fibrosis. 5. If needed, use less than 2 g/day of Tylenol (in divided doses). 6. Vaccination for Hep A, B, Pneumococcus if not already received and yearly influenza vaccination by PCP. 7. Avoid NSAIDS as can cause kidney damage. 8. Avoid benzodiazepines and other sedatives such as anti-histamines, narcotics etc. as can cause encephalopathy or confusion. 9. Take a late carbohydrate meal supplement as it reduces glucose production from protein breakdown and thus improves nutrition. 10. In cirrhosis, statins are safe to use and also improve portal hypertension and decrease risk of HCC. 11. Screening: Hepatocellular cancer screening: US of liver and AFP every 6 months Qualifiers: Hepatic cirrhosis type: unspecified hepatic cirrhosis Ascites presence: unspecified Qualified Code(s): K74.60 - Unspecified cirrhosis of liver (3) Hepatic encephalopathy Current Visit: No Status: Resolved Assessment and plan: As above. - Time Spent With Patient Total time spent is greater than 50% in coordination of care (as documented) at patient's floor/unit and/or counseling patient: GI History of Present Illness - Data of Consult Patient: known to practice within the last 3 years Consult date: 02/02/19 Requesting Physician: Ariella Trevino MD - Consult Narrative Reason for consult: Hepatic encephalopathy History of present illness: Mr. Diaz is a 53 year old male with PMHx of cirrhosis, DM, GERD, HTN who presented [facility] ED with confusion and was transferred here for further evaluation. He has been admitted recently for same complaints from 01/19/2019- 01/21/2019 and 01/27/2019-01/29/2019. Per family at bedside, he was found outside in a car at his residence and was confused and was brought to the ED via EMS. Patient states he does not remember anything that happened. Patient and family state he has been taking his Rifaximin, Lactulose, and Zinc as prescribed. He reports having 5-6 BMs daily with the Lactulose. On arrival to ED, Hgb 8.9 and was 8.6 this AM. Hgb 10 on 12/16/2018 and 11.8 on 09/22/2018. Procedures: EGD 12/15/2017 Dr. 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 Colonoscopy 08/20/2017 Dr. Beckman 3 mm tubular adenoma, 3 mm hyperplastic polyp, internal hemorrhoids, repeat 5 years. EGD 08/20/2017 Dr. Beckman: LA grade C reflux esophagitis, negative for Emerson's esophagus, medium hiatal hernia, portal hypertensive gastropathy. EGD 06/25/2017 Dr. Iglesias: Bleeding erosive gastropathy, portal hypertensive gastropathy, small hiatal hernia, esophageal varices. NSAIDs: None Anticoagulation: None Past Med Surg Social Fam HX - Past Medical History Medical history: cirrhosis, diabetes, GERD, hypertension, liver disease, renal disease Additional medical history: alpha one intryptysin defiency. Macrocytosis. Encephalopathy. ESTLEA. Gynecomastia. Anemia Psychiatric history: depression - Past Surgical History Surgical History: orthopedic, other, other Additional surgical history: carpal tunnel left. nodules vocal cords. left knee - Social History Smoking Status: Never smoker Smokeless Tobacco Status: No Alcohol use: none Drug use: none - Family History Mother Living Status: Hx Family Cardiac Disorders: No Hx Family Respiratory Disorders: No Hx Family Cancer: No Hx Family Endocrine Disorder: Yes - Gastrointestinal Gastrointestinal: Present: as per HPI - Constitutional Constitutional: as per HPI - EENT Eyes: as per HPI Ears: Present: as per HPI Nose, mouth and throat: Present: as per HPI - Cardiovascular Cardiovascular ROS: Present: as per HPI - Respiratory Respiratory IM: Present: as per HPI - Genitourinary Genitourinary: Absent: change in color, Urinary frequency - Neurological ROS Neurological GI: Present: as per HPI - Hematologic/Lymphatic Hematologic/Lymphatic pediatric: Present: as per HPI - Musculoskeletal Musculoskeletal ROS GI: Present: as per HPI - Integumentary Integumentary GI: Present: as per HPI - Psychiatric ROS Psychiatric GI: Present: as per HPI - Endocrine Endocrine IM: Present: as per HPI - Constitutional Vitals: Temp Pulse Resp BP Pulse Ox 98.5 F 95 15 129/74 97 02/02/19 07:37 02/02/19 07:37 02/02/19 07:37 02/02/19 07:37 02/02/19 07:37 General appearance: Present: cooperative, A&O X 3, no acute distress, answers questions appropriately - Head Head exam: Present: atraumatic, normocephalic - Eye Eye exam: Present: normal appearance, sclera anicteric - ENT ENT exam: Present: mucous membranes dry - Neck Neck exam general surgery: Present: normal inspection, trachea midline - Respiratory Respiratory exam: Present: CTAB. Absent: rales, rhonchi, wheezes - Cardiovascular Cardiovascular exam: Present: RRR, +S1, +S2 - GI/Abdominal GI/Abdominal exam: Present: soft, no peritoneal signs. Absent: distended, firm, guarding, tenderness - Rectal Rectal exam: Present: deferred - Extremities Exam Extremities exam: Present: warm - Neurological Exam Neurological exam: Present: no focal deficits - Psychiatric Psychiatric exam: Present: normal affect, normal mood - Skin Skin exam: Present: dry, intact, normal color, warm Results - Labs CBC & Chem 7: 02/02/19 05:27 02/02/19 05:27 Labs: Last Result 02/02/19 05:27 Calcium 8.7 Entire Visit 02/02/19 02/02/19 02/02/19 05:27 05:27 05:27 Hgb 8.6 L Hct 26.5 L PT 15.7 H Total Bilirubin 1.9 H AST 74 H ALT 51 - ABG ABG results: PT/INR, D-dimer PT 15.7 Seconds (9.4-12.1) H 02/02/19 05:27 Consult Discharge Plan - Plan Referrals: Daphnie Calvillo, CLERK GENERAL [Primary Care Provider] -
[2019-02-02] MEDS: Thiamine (B-1) 100 MG TABLET PO SCH (10:50)
[2019-02-02] MEDS: Folic Acid 1 MG TABLET PO SCH (10:50)
[2019-02-02] MEDS: Vitamin B Complex/Vit C/Vit E 1 EACH TABLET PO SCH (10:50)
[2019-02-02] MEDS: Zinc Sulfate 220 MG CAPSULE PO SCH (10:51)
[2019-02-02] MEDS ORDERED: D5% in Water 1,000 ML IVC PRN (11:55)
[2019-02-02] MEDS ORDERED: *HR* Dextrose 50 % in Water (Syg) 50 ML SYRINGE IVP PRN (11:55)
[2019-02-02] MEDS ORDERED: Dextrose Gel 15 GM/37.5 ML TUBE PO PRN ×2 (11:55)
[2019-02-02] MEDS: Insulin LISPRO 300 UNITS/3 ML VIAL SQ SCH ×3 (12:39→20:52)
[2019-02-02 12:48] LABS: Bilirubin,Urine Small (Negative); Blood,Urine Small (Negative); Clarity,Urine Clear (Clear); Color,Urine Orange (Yellow); Glucose,Urine (UA) Normal (Normal); Ketones,Urine Trace mg/dL (Negative); Leukocyte Esterase,Urine Small (Negative); Nitrite,Urine Negative (Negative); PH,Urine 5.5 pH Units (5.0-8.0); Protein,Urine Trace mg/dL (Neg-Trace); Specific Gravity,Urine > 1.030 (1.010-1.025); Urobilinogen,Urine Normal (Normal)
[2019-02-02 12:50] LABS: Hyaline Casts,Urine Few per lpf (None-Few); RBC,Urine 0-3 per hpf (0-3)
[2019-02-02 13:50] LABS: Bacteria,Urine Few per hpf (None-Few); Calcium Oxalate Crystals,Urine Present; Squamous Epithelial Cell,Urine Few per lpf (None-Few)
--- NOTE | 2019-02-02 17:26 | Internal Med Progress Note ---
<Pepe Mitchell I - Last Filed: 02/02/19 17:48> Hospitalist Progress Note - Encounter Date of Encounter: 02/02/19 Time of Encounter: 08:40 - Subjective Interval History: Mr Diaz is seen and examined today . he was sitting up in his chair . respond to questions a[ppropriatly . denies abdominal pain . no nausea or vomiting . 4 bowel movement this morning . no chest pain , abdominal pain or sob . - Exam Vitals: Temp Pulse Resp BP Pulse Ox 98.1 F 90 15 125/75 98 02/02/19 16:59 02/02/19 16:59 02/02/19 16:59 02/02/19 16:59 02/02/19 16:59 Exam: General Appearance: alert and oriented . obese , no acute distress Head: Atraumatic normocephalic Skin: Normal texture, normal turgor, warm, dry. Eyes: Conjunctivae not pale with no erythema, drainage, or ulcers. minimally icteric. Neck: No Lymphadenopathy in the anterior/posterior cervical chain. No thyromegaly, masses or ulcers. Trachea midline. Heart: RRR, no murmurs. Capillary refill 3 seconds Lungs: No accessory muscle usage, lungs clear to auscultation bilaterally, no wheezes or crackles. Abdomen: morbid obese, Non-distended, normoactive bowel sounds. non-tender to palpation, no hepatomegally. No guarding. Neuro:A&A X 3 no focal deficits. MSK: Strength 5/5 Upper extremity equal bilaterally. Strength 5/5 Lower extremity equal bilaterally - Assessment and Plan (1) Hepatic encephalopathy Current Visit: No Status: Resolved Assessment and Plan: patient presented with altered mental status AMS secondary to decompensated liver cirrhosis today A/A X3 , had 4 bowel movements MELD-Na 13 , Maddry 23.5 Ammonia 114 continue lactolose and rifaximin Start Zinc 220 mg daily. Continue to monitor CBC and transfuse PRBC as needed. GI consulted Plan for EGD tomorrow to r/o esophagitis, esophageal varices, gastritis, duodenitis, PUD, MW tear, or AVM. Keep NPO at midnight. (2) Anemia Current Visit: No Status: Chronic Assessment and Plan: Clinically stable On arrival to ED, Hgb 8.9 and was 8.6 this AM. Plan for EGD tomorrow to r/o esophagitis, esophageal varices, gastritis, duodenitis, PUD, MW tear, or AVM. Keep NPO at midnight. Continue to monitor CBC and transfuse PRBC as needed. (3) Thrombocytopenia Current Visit: No Status: Chronic Assessment and Plan: due to liver cirhosis continue monitoring - Time Spent with Patient Total time spent is greater than 50% in coordination of care (as documented) at patient's floor/unit and/or counseling patient: Internal Medicine: Result - Labs CBC & Chem 7: 02/02/19 05:27 02/02/19 05:27 Labs: Short CBC 02/02/19 Range/Units 05:27 WBC 4.5 (4.3-11.1) K/mcL Hgb 8.6 L (12.9-16.9) g/dL Hct 26.5 L (37.5-50.1) % Plt Count 80 L (140-400) K/mcL Neutrophils # 2.7 (1.6-8.9) K/mcL BMP 02/02/19 05:27 Sodium 140 Potassium 3.7 Chloride 110 H Carbon Dioxide 24 BUN 12 Creatinine 0.74 Glucose 116 H Calcium 8.7 Liver Function 02/02/19 Range/Units 05:27 Total Bilirubin 1.9 H (0.3-1.0) mg/dL AST 74 H (13-39) Units/L ALT 51 (7-52) Units/L Alkaline Phosphatase 105 H (34-104) Units/L Albumin 2.8 L (3.5-5.7) g/dL Urine 02/02/19 Range/Units 12:32 Urine Color [place] A (Yellow) Urine Clarity Clear (Clear) Urine pH 5.5 (5.0-8.0) pH Units Ur Specific [place] > 1.030 H (1.010-1.025) Urine Protein Trace (Neg-Trace) mg/dL Urine Glucose (UA) Normal (Normal) mg/dL - ABG Interpretation ABG results: PT/INR, D-dimer PT 15.7 Seconds (9.4-12.1) H 02/02/19 05:27 Consult Discharge Plan - Plan Referrals: Daphnie Calvillo, SOILS ENGINEER [Primary Care Provider] - <Ariella Trevino - Last Filed: 02/02/19 18:33> Hospitalist Progress Note - Encounter Date of Encounter: 02/02/19 - Exam Vitals: Temp Pulse Resp BP Pulse Ox 98.1 F 90 15 125/75 98 02/02/19 16:59 02/02/19 16:59 02/02/19 16:59 02/02/19 16:59 02/02/19 16:59 - Time Spent with Patient Total time spent is greater than 50% in coordination of care (as documented) at patient's floor/unit and/or counseling patient: Internal Medicine: Result - Labs CBC & Chem 7: 02/02/19 05:27 02/02/19 05:27 Labs: Short CBC 02/02/19 Range/Units 05:27 WBC 4.5 (4.3-11.1) K/mcL Hgb 8.6 L (12.9-16.9) g/dL Hct 26.5 L (37.5-50.1) % Plt Count 80 L (140-400) K/mcL Neutrophils # 2.7 (1.6-8.9) K/mcL BMP 02/02/19 05:27 Sodium 140 Potassium 3.7 Chloride 110 H Carbon Dioxide 24 BUN 12 Creatinine 0.74 Glucose 116 H Calcium 8.7 Liver Function 02/02/19 Range/Units 05:27 Total Bilirubin 1.9 H (0.3-1.0) mg/dL AST 74 H (13-39) Units/L ALT 51 (7-52) Units/L Alkaline Phosphatase 105 H (34-104) Units/L Albumin 2.8 L (3.5-5.7) g/dL Urine 02/02/19 Range/Units 12:32 Urine Color [place] A (Yellow) Urine Clarity Clear (Clear) Urine pH 5.5 (5.0-8.0) pH Units Ur Specific [place] > 1.030 H (1.010-1.025) Urine Protein Trace (Neg-Trace) mg/dL Urine Glucose (UA) Normal (Normal) mg/dL - ABG Interpretation ABG results: PT/INR, D-dimer PT 15.7 Seconds (9.4-12.1) H 02/02/19 05:27 - Attending Attestation I saw evaluated and examined this patient and reviewed objective data including labs and my medical decision-making was reviewed with the Resident Physician/Me dical Student. I agree with the documented findings, disposition and treatment plan as described except to any changes set forth below. We independently had [id number] contact with the patient. <Pepe Mitchell I - Last Filed: 02/02/19 17:48> (2) Anemia Qualifiers: Anemia type: unspecified type Qualified Code(s): D64.9 - Anemia, unspecified
[2019-02-03 05:06] LABS: Hematocrit 24.7 % (37.5-50.1); Mean Corpuscular HGB Conc 32.4 g/dL (31.6-35.5)
[2019-02-03 05:09] LABS: Basophils # 0.1 K/mcL (0.0-0.2); Basophils % 1.5 %; Eosinophils # 0.2 K/mcL (0.0-0.6); Immature Platelets 1.3 % (1.1-6.1); Lymphocytes # 0.9 K/mcL (0.6-4.6); Lymphocytes % 25.3 %; Mean Corpuscular Hemoglobin 34.8 pg (28.0-33.3); Mean Corpuscular Volume 107.4 fL (83.0-100.0); Mean Platelet Volume 10.2 fL (9.4-12.4); Monocytes # 0.5 K/mcL (0.0-1.3); Monocytes % 14.5 %; Neutrophils # 1.8 K/mcL (1.6-8.9); Red Cell Distribution Width 16.4 % (11.5-14.5); Segmented Neutrophils % 51.7 %; White Blood Count 3.4 K/mcL (4.3-11.1)
[2019-02-03 05:19] LABS: Platelet Count 77 K/mcL (140-400)
[2019-02-03] MEDS: Lactulose Oral Soln 20 GM/30 ML UDC PO SCH ×4 (05:24→23:19)
[2019-02-03 05:27] LABS: Alanine Aminotransferase 46 Units/L (7-52); Albumin 2.6 g/dL (3.5-5.7); Alkaline Phosphatase 106 Units/L (34-104); Aspartate Amino Transferase 64 Units/L (13-39); BUN/Creatinine Ratio 19 (6-26); Bilirubin,Total 1.6 mg/dL (0.3-1.0); Blood Urea Nitrogen 13 mg/dL (6-20); Calcium 8.1 mg/dL (8.6-10.3); Carbon Dioxide 21 mEq/L (23-29); Chloride 113 mEq/L (98-107); Globulin 2.6 g/dL (2.4-3.5); Glucose 157 mg/dL (70-105); Osmolality,Calculated 289 (280-300); Sodium 138 mEq/L (136-145); Total Protein 5.2 g/dL (6.4-8.9); eGFR For African Americans > 60 (> 60); eGFR For Non-African Americans > 60 (> 60)
[2019-02-03] MEDS: Insulin LISPRO 300 UNITS/3 ML VIAL SQ SCH ×4 (07:51→20:12)
[2019-02-03] MEDS: Thiamine (B-1) 100 MG TABLET PO SCH (08:16)
[2019-02-03] MEDS: Vitamin B Complex/Vit C/Vit E 1 EACH TABLET PO SCH (08:16)
[2019-02-03] MEDS: Folic Acid 1 MG TABLET PO SCH (08:16)
[2019-02-03] MEDS: Zinc Sulfate 220 MG CAPSULE PO SCH (08:16)
--- NOTE | 2019-02-03 08:57 | Internal Med Progress Note ---
<Alma Hernandez E - Last Filed: 02/03/19 14:58> Hospitalist Progress Note - Encounter Date of Encounter: 02/03/19 Time of Encounter: 09:30 - Subjective Interval History: Mr. Diaz is a 53-year-old male here for cirrhosis Patient is seen and examined at bedside today, sitting in chair, states that he is feeling well today. He denied any chest pain, shortness of breath, abdominal pain, nausea, vomiting, diarrhea, weakness. He does state that his belly feels very full today. - Exam Vitals: Temp Pulse Resp BP Pulse Ox 98.6 F 95 16 118/75 96 02/03/19 06:32 02/03/19 06:32 02/03/19 06:32 02/03/19 06:32 02/03/19 06:32 Exam: General: AAO 3, no acute distress, answers questions appropriately Head: normocephalic, atraumatic Eyes: ANMOL, no icterus Cardio: RRR, no murmurs, rubs, or gallops Respiratory: CTAB, no wheezing, rhonchi, rales Abd: normal bowel sounds, no guarding or rigidity, distended no fluid wave noted Extremities: 1+ pitting edema bilaterally lower extremities, pulses equal bilaterally, warm Skin: warm, dry, intact - Assessment and Plan (1) Hepatic encephalopathy Current Visit: Yes Status: Resolved Assessment and Plan: Patient initially presented for altered mental status This is secondary to his decompensated cirrhosis Today patient is a AAO 3 Ammonia today 112 decreased from 114 Continue lactulose and fixed cemented Zinc 220 mg daily Continue monitor CBC transfuse packed red blood cells as needed Patient had endoscopy by GI today that showed grade 2 varices in the lower third of the esophagus, one benign-appearing intrinsic moderate stenosis, portal hypertensive gastropathy, no biopsies were taken Recommendations chemical soft diet indefinitely, continue present medications, repeat upper endoscopy per protocol, return to GI office in 2 weeks (2) Thrombocytopenia Current Visit: No Status: Chronic Assessment and Plan: Secondary to liver cirrhosis Continue to monitor (3) Anemia Current Visit: No Status: Chronic Assessment and Plan: Clinically stable On arrival to the ED his hemoglobin is 8.9 today it is 8.0 EGD results as above Continue to monitor transfuse if needed DVT Prophylaxis: ECPDs - Time Spent with Patient Total time spent is greater than 50% in coordination of care (as documented) at patient's floor/unit and/or counseling patient: Internal Medicine: Result - Labs CBC & Chem 7: 02/03/19 04:55 02/03/19 04:55 Labs: Short CBC 02/03/19 Range/Units 04:55 WBC 3.4 L (4.3-11.1) K/mcL Hgb 8.0 L (12.9-16.9) g/dL Hct 24.7 L (37.5-50.1) % Plt Count 77 L (140-400) K/mcL Neutrophils # 1.8 (1.6-8.9) K/mcL BMP 02/03/19 04:55 Sodium 138 Potassium 4.0 Chloride 113 H Carbon Dioxide 21 L BUN 13 Creatinine 0.67 L Glucose 157 H Calcium 8.1 L Liver Function 02/03/19 Range/Units 04:55 Total Bilirubin 1.6 H (0.3-1.0) mg/dL AST 64 H (13-39) Units/L ALT 46 (7-52) Units/L Alkaline Phosphatase 106 H (34-104) Units/L Albumin 2.6 L (3.5-5.7) g/dL Urine 02/02/19 Range/Units 12:32 Urine Color Wheeler A (Yellow) Urine Clarity Clear (Clear) Urine pH 5.5 (5.0-8.0) pH Units Ur Specific [place] > 1.030 H (1.010-1.025) Urine Protein Trace (Neg-Trace) mg/dL Urine Glucose (UA) Normal (Normal) mg/dL - ABG Interpretation ABG results: PT/INR, D-dimer PT 15.7 Seconds (9.4-12.1) H 02/02/19 05:27 Consult Discharge Plan - Plan Referrals: Daphnie Calvillo, [facility] [Primary Care Provider] - <Ariella Trevino - Last Filed: 02/03/19 18:14> Hospitalist Progress Note - Encounter Date of Encounter: 02/03/19 - Exam Vitals: Temp Pulse Resp BP Pulse Ox 98.4 F 85 16 115/72 100 02/03/19 15:08 02/03/19 15:08 02/03/19 15:08 02/03/19 15:08 02/03/19 15:08 - Time Spent with Patient Total time spent is greater than 50% in coordination of care (as documented) at patient's floor/unit and/or counseling patient: Internal Medicine: Result - Labs CBC & Chem 7: 02/03/19 04:55 02/03/19 04:55 Labs: Short CBC 02/03/19 Range/Units 04:55 WBC 3.4 L (4.3-11.1) K/mcL Hgb 8.0 L (12.9-16.9) g/dL Hct 24.7 L (37.5-50.1) % Plt Count 77 L (140-400) K/mcL Neutrophils # 1.8 (1.6-8.9) K/mcL BMP 02/03/19 04:55 Sodium 138 Potassium 4.0 Chloride 113 H Carbon Dioxide 21 L BUN 13 Creatinine 0.67 L Glucose 157 H Calcium 8.1 L Liver Function 02/03/19 Range/Units 04:55 Total Bilirubin 1.6 H (0.3-1.0) mg/dL AST 64 H (13-39) Units/L ALT 46 (7-52) Units/L Alkaline Phosphatase 106 H (34-104) Units/L Albumin 2.6 L (3.5-5.7) g/dL - ABG Interpretation ABG results: PT/INR, D-dimer PT 15.7 Seconds (9.4-12.1) H 02/02/19 05:27 - Attending Attestation I saw evaluated and examined this patient and reviewed objective data including labs and my medical decision-making was reviewed with the Resident Physician/Medical Student. I agree with the documented findings, disposition and treatment plan as described except to any changes set forth below. We independently had [id number] contact with the patient. <[place],Alma E - Last Filed: 02/03/19 14:58> (3) Anemia Qualifiers: Anemia type: unspecified type Qualified Code(s): D64.9 - Anemia, unspecified
[2019-02-03] MEDS ORDERED: *HR* Propofol 200 MG/20 ML VIAL IVP ONE (13:25)
[2019-02-03] MEDS ORDERED: Lidocaine -MPF 2% 2 ML VIAL ONE (13:26)
--- NOTE | 2019-02-03 13:40 | Anesthesia Evaluation PreOp ---
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, being evaluated for possible transplant), Diabetes Type II, GERD, Other (morbid obesity, chronic thrombocytopenia) Anesthesia History: No Prior Anesthetic Complications, Past Anesthesia (multiple prior EGDs without difficulty) Alcohol Use: none Drug use: none Medications and Allergies Multivitamin [One Daily Multivitamin] 1 tab PO DAILY 08/12/17 [History] Atorvastatin Calcium [Lipitor] 20 mg PO DAILY 09/04/18 [History] Pantoprazole Sodium [Protonix] 40 mg PO BID 09/04/18 [History] Zinc Gluconate 100 mg PO BID 09/04/18 [History] Ferrous Sulfate 325 mg PO DAILY #30 tablet 09/06/18 [Rx] metFORMIN [Glucophage] 500 mg PO BIDWM #60 tablet 09/06/18 [Rx] Ascorbate Calcium [Vitamin C] 500 mg PO QAM 12/16/18 [History] Glimepiride [Amaryl] 2 mg PO QAM 12/17/18 [History] Ondansetron ODT [Zofran ODT] 4 mg SL Q8H PRN 12/17/18 [History] Rifaximin [Xifaxan] 550 mg PO BID 30 Days #60 tablet 12/18/18 [Rx] Spironolactone 150 mg PO BID 01/20/19 [History] Bumetanide 2 mg PO DAILY 01/27/19 [History] Lactulose 30 gm PO QID 01/27/19 [History] Allergy/AdvReac Type Severity Reaction Status Date / Time No Known Allergies Allergy Verified 01/27/19 23:49 - Meds/Allergy Pre-op Review Medications Reviewed: Yes Allergies Reviewed: Yes Beta Blockers on Current Med List: No Anesthesia Results - Labs 02/03/19 04:55 02/03/19 04:55 - Imaging EKG: report reviewed (sinus rhythm) Anesthesia Exam Selected Entries 02/03/19 11:36 Temperature 98.4 F Pulse Rate 90 Respiratory Rate 16 Blood Pressure 130/69 O2 Sat by Pulse Oximetry 97 Weight: 151 kg BMI 52 - HEENT Mallampati: III Teeth: Normal Oral Opening: Greater than 3 - Cardiac Rhythm: Regular Murmur: None - Pulmonary Breath Sounds: bilateral Clear Respiratory Effort: Symmetrical Anesthesia Assess/Plan ASA Score: 4 Level of consciousness: Cooperative Anesthetic Plan: General Monitoring Plan: Standard Monitors Recovery Plan: Other (Reviewed MAC anesthesia, agreed to proceed.)
[2019-02-03] MEDS: Bumetanide 1 MG TABLET PO SCH (18:24)
[2019-02-04 04:52] LABS: Hemoglobin 8.1 g/dL (12.9-16.9)
[2019-02-04 04:54] LABS: Basophils # 0.1 K/mcL (0.0-0.2); Basophils % 1.7 %; Eosinophils # 0.2 K/mcL (0.0-0.6); Eosinophils % 6.8 %; Hematocrit 24.8 % (37.5-50.1); Immature Granulocytes % 0.3 % (0-4); Lymphocytes # 0.8 K/mcL (0.6-4.6); Lymphocytes % 23.6 %; Mean Corpuscular HGB Conc 32.7 g/dL (31.6-35.5); Mean Corpuscular Hemoglobin 34.8 pg (28.0-33.3); Mean Corpuscular Volume 106.4 fL (83.0-100.0); Mean Platelet Volume 9.9 fL (9.4-12.4); Monocytes # 0.5 K/mcL (0.0-1.3); Monocytes % 13.1 %; Neutrophils # 1.9 K/mcL (1.6-8.9); Red Blood Count 2.33 M/mcL (4.19-5.50); Segmented Neutrophils % 54.5 %; White Blood Count 3.5 K/mcL (4.3-11.1)
[2019-02-04 04:57] LABS: Platelet Count 68 K/mcL (140-400)
[2019-02-04 04:58] LABS: Platelet Estimate Decreased (Normal)
[2019-02-04] MEDS: Lactulose Oral Soln 20 GM/30 ML UDC PO SCH ×3 (05:01→17:17)
[2019-02-04 05:15] LABS: Alanine Aminotransferase 50 Units/L (7-52); Albumin 2.7 g/dL (3.5-5.7); Alkaline Phosphatase 111 Units/L (34-104); Aspartate Amino Transferase 75 Units/L (13-39); BUN/Creatinine Ratio 14 (6-26); Bilirubin,Total 1.5 mg/dL (0.3-1.0); Blood Urea Nitrogen 10 mg/dL (6-20); Carbon Dioxide 21 mEq/L (23-29); Chloride 109 mEq/L (98-107); Globulin 2.7 g/dL (2.4-3.5); Glucose 196 mg/dL (70-105); Osmolality,Calculated 286 (280-300); Potassium 3.9 mEq/L (3.5-5.1); Sodium 136 mEq/L (136-145); Total Protein 5.4 g/dL (6.4-8.9); eGFR For African Americans > 60 (> 60); eGFR For Non-African Americans > 60 (> 60)
[2019-02-04] MEDS ORDERED: Furosemide 40 MG/4 ML VIAL IVP ONE (08:23)
--- NOTE | 2019-02-04 08:26 | Internal Med Progress Note ---
Hospitalist Progress Note - Encounter Date of Encounter: 02/04/19 Time of Encounter: 10:48 - Subjective Interval History: Patient did have a dizziness/confusion episode briefly overnight, states edema of stomach and legs are still severe. Denies SOB. - Exam Vitals: Temp Pulse Resp BP Pulse Ox 98.2 F 101 15 118/69 94 02/04/19 06:57 02/04/19 06:57 02/04/19 06:57 02/04/19 03:51 02/04/19 06:57 Exam: General: AAO 3, no acute distress, answers questions appropriately Head: normocephalic, atraumatic Eyes: ANMOL, no icterus Cardio: RRR, no murmurs, rubs, or gallops Respiratory: CTAB, no wheezing, rhonchi, rales Abd: normal bowel sounds, no guarding or rigidity, distended no fluid wave noted. Edema noted. Extremities: 1+ pitting edema bilaterally lower extremities, pulses equal bilaterally, warm Skin: warm, dry, intact - Assessment and Plan (1) Hepatic encephalopathy Current Visit: Yes Status: Resolved Assessment and Plan: Continue current management. Continue diuresis which will likely help reduce bowel edema and improve absorption of medications and reduce encephalopathy. (2) DVT prophylaxis Current Visit: No Status: Acute (3) Anemia Current Visit: No Status: Chronic (4) Cirrhosis of liver Current Visit: No Status: Chronic (5) DM type 2 (diabetes mellitus, type 2) Current Visit: No Status: Chronic (6) Esophageal varices Current Visit: No Status: Chronic (7) Hypertension Current Visit: No Status: Chronic - Time Spent with Patient Total time spent is greater than 50% in coordination of care (as documented) at patient's floor/unit and/or counseling patient: Internal Medicine: Result - Labs CBC & Chem 7: 02/04/19 04:39 02/04/19 04:39 Labs: Short CBC 02/04/19 Range/Units 04:39 WBC 3.5 L (4.3-11.1) K/mcL Hgb 8.1 L (12.9-16.9) g/dL Hct 24.8 L (37.5-50.1) % Plt Count 68 L (140-400) K/mcL Neutrophils # 1.9 (1.6-8.9) K/mcL BMP 02/04/19 04:39 Sodium 136 Potassium 3.9 Chloride 109 H Carbon Dioxide 21 L BUN 10 Creatinine 0.70 Glucose 196 H Calcium 8.0 L Liver Function 02/04/19 Range/Units 04:39 Total Bilirubin 1.5 H (0.3-1.0) mg/dL AST 75 H (13-39) Units/L ALT 50 (7-52) Units/L Alkaline Phosphatase 111 H (34-104) Units/L Albumin 2.7 L (3.5-5.7) g/dL - ABG Interpretation ABG results: PT/INR, D-dimer PT 15.7 Seconds (9.4-12.1) H 02/02/19 05:27 Consult Discharge Plan - Plan Referrals: Daphnie Calvillo CNP [Primary Care Provider] - (3) Anemia Qualifiers: Anemia type: unspecified type Qualified Code(s): D64.9 - Anemia, unspecified (4) Cirrhosis of liver Qualifiers: Hepatic cirrhosis type: unspecified hepatic cirrhosis Ascites presence: uns pecified Qualified Code(s): K74.60 - Unspecified cirrhosis of liver (5) DM type 2 (diabetes mellitus, type 2) Qualifiers: Diabetes mellitus skilled nursing insulin use: without skilled nursing use Diabetes mellitus complication status: without complication Qualified Code(s): E11.9 - Type 2 diabetes mellitus without complications (6) Esophageal varices Qualifiers: Esophageal varices type: unspecified type Esophageal varices bleeding: without bleeding Qualified Code(s): I85.00 - Esophageal varices without bleeding (7) Hypertension Qualifiers: Hypertension type: essential hypertension Qualified Code(s): I10 - Essential (primary) hypertension
[2019-02-04] MEDS: Bumetanide 1 MG TABLET PO SCH (08:29)
[2019-02-04] MEDS: Zinc Sulfate 220 MG CAPSULE PO SCH (08:30)
[2019-02-04] MEDS: Thiamine (B-1) 100 MG TABLET PO SCH (08:30)
[2019-02-04] MEDS: Folic Acid 1 MG TABLET PO SCH (08:30)
[2019-02-04] MEDS: Vitamin B Complex/Vit C/Vit E 1 EACH TABLET PO SCH (08:30)
[2019-02-04] MEDS: Insulin LISPRO 300 UNITS/3 ML VIAL SQ SCH ×4 (08:31→22:29)
[2019-02-04] MEDS: Furosemide 20 MG/2 ML VIAL IVP SCH (22:33)
[2019-02-05] MEDS: Lactulose Oral Soln 20 GM/30 ML UDC PO SCH ×5 (00:44→23:10)
[2019-02-05 07:59] LABS: BUN/Creatinine Ratio 14 (6-26); Blood Urea Nitrogen 10 mg/dL (6-20); Calcium 8.4 mg/dL (8.6-10.3); Carbon Dioxide 25 mEq/L (23-29); Chloride 105 mEq/L (98-107); Glucose 130 mg/dL (70-105); Osmolality,Calculated 285 (280-300); Potassium 3.5 mEq/L (3.5-5.1); Sodium 137 mEq/L (136-145); eGFR For African Americans > 60 (> 60); eGFR For Non-African Americans > 60 (> 60)
[2019-02-05] MEDS: Zinc Sulfate 220 MG CAPSULE PO SCH (08:55)
[2019-02-05] MEDS: Folic Acid 1 MG TABLET PO SCH (08:55)
[2019-02-05] MEDS: Vitamin B Complex/Vit C/Vit E 1 EACH TABLET PO SCH (08:55)
[2019-02-05] MEDS: Bumetanide 1 MG TABLET PO SCH (08:55)
[2019-02-05] MEDS: Furosemide 20 MG/2 ML VIAL IVP SCH ×2 (08:55→20:43)
[2019-02-05] MEDS: Thiamine (B-1) 100 MG TABLET PO SCH (08:55)
[2019-02-05] MEDS: Insulin LISPRO 300 UNITS/3 ML VIAL SQ SCH ×4 (09:01→20:44)
--- NOTE | 2019-02-05 12:14 | Internal Med Progress Note ---
Hospitalist Progress Note - Encounter Date of Encounter: 02/05/19 Time of Encounter: 12:58 - Subjective Interval History: Nursing reports patient ate full meal of [employer] today. He denies dizziness, blurry vision, n/v, diarrhea/constipation, abdominal pain. - Exam Vitals: Temp Pulse Resp BP Pulse Ox 98.1 F 95 17 128/91 99 02/05/19 11:50 02/05/19 11:50 02/05/19 11:50 02/05/19 11:50 02/05/19 11:50 Exam: General: AAO 3, no acute distress, answers questions appropriately Head: normocephalic, atraumatic Eyes: ANMOL, no icterus Cardio: RRR, no murmurs, rubs, or gallops Respiratory: CTAB, no wheezing, rhonchi, rales Abd: normal bowel sounds, no guarding or rigidity, distended no fluid wave noted. Edema noted. Extremities: 1+ pitting edema bilaterally lower extremities, pulses equal bilaterally, warm Skin: warm, dry, intact - Assessment and Plan (1) Fluid overload Current Visit: Yes Status: Acute Assessment and Plan: Due to cirrhosis with non-compliance with diet. Patient eating Islas[employer] today with high sugar and sodium foods in general. We had a 15 minute discussion on diet and lifestyle modification with his friend present at bedside. He states he is interested in improving his dietary habits. - Continue IV Lasix 40 mg BID. Anticipate DC tomorrow with increasing Bumex on discharge and resuming spironolactone. (2) Hepatic encephalopathy Current Visit: Yes Status: Resolved Assessment and Plan: Continue current management. Continue diuresis which will likely help reduce bowel edema and improve absor ption of medications and reduce encephalopathy. No further episodes and this is while continuing his home medications of Lactulose QID and rifaxamin 500 mg BID. There is concern for medical and tary non-compliance. [facility] on discharge to help with this. (3) DVT prophylaxis Current Visit: No Status: Acute (4) Anemia Current Visit: No Status: Chronic (5) Cirrhosis of liver Current Visit: No Status: Chronic (6) DM type 2 (diabetes mellitus, type 2) Current Visit: No Status: Chronic (7) Esophageal varices Current Visit: No Status: Chronic (8) Hypertension Current Visit: No Status: Chronic - Time Spent with Patient Total time spent is greater than 50% in coordination of care (as documented) at patient's floor/unit and/or counseling patient: Internal Medicine: Result - Labs CBC & Chem 7: 02/04/19 04:39 02/05/19 07:13 Labs: BMP 02/05/19 07:13 Sodium 137 Potassium 3.5 Chloride 105 Carbon Dioxide 25 BUN 10 Creatinine 0.72 Glucose 130 H Calcium 8.4 L - ABG Interpretation ABG results: PT/INR, D-dimer PT 15.7 Seconds (9.4-12.1) H 02/02/19 05:27 Consult Discharge Plan - Plan Referrals: Daphnie Calvillo CNP [Primary Care Provider] - (1) Fluid overload Qualifiers: Hypervolemia type: unspecified Qualified Code(s): E87.70 - Fluid overload, unspecified (4) Anemia Qualifiers: Anemia type: unspecified type Qualified Code(s): D64.9 - Anemia, unspecified (5) Cirrhosis of liver Qualifiers: Hepatic cirrhosis type: unspecified hepatic cirrhosis Ascites presence: unspecified Qualified Code(s): K74.60 - Unspecified cirrhosis of liver (6) DM type 2 (diabetes mellitus, type 2) Qualifiers: 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
[2019-02-06 02:40] LABS: BUN/Creatinine Ratio 15 (6-26); Blood Urea Nitrogen 10 mg/dL (6-20); Calcium 8.4 mg/dL (8.6-10.3); Carbon Dioxide 30 mEq/L (23-29); Chloride 105 mEq/L (98-107); Glucose 237 mg/dL (70-105); Osmolality,Calculated 291 (280-300); Potassium 3.5 mEq/L (3.5-5.1); Sodium 137 mEq/L (136-145); eGFR For African Americans > 60 (> 60); eGFR For Non-African Americans > 60 (> 60)
[2019-02-06] MEDS: Lactulose Oral Soln 20 GM/30 ML UDC PO SCH (05:17)
[2019-02-06 07:19] VITALS: BP 100/61
[2019-02-06] MEDS: Bumetanide 1 MG TABLET PO SCH (08:13)
[2019-02-06] MEDS: Insulin LISPRO 300 UNITS/3 ML VIAL SQ SCH (08:14)
[2019-02-06] MEDS: Zinc Sulfate 220 MG CAPSULE PO SCH (08:14)
[2019-02-06] MEDS: Thiamine (B-1) 100 MG TABLET PO SCH (08:14)
[2019-02-06] MEDS: Folic Acid 1 MG TABLET PO SCH (08:14)
[2019-02-06] MEDS: Vitamin B Complex/Vit C/Vit E 1 EACH TABLET PO SCH (08:14)
[2019-02-06] MEDS: Furosemide 20 MG/2 ML VIAL IVP SCH (08:14)
--- NOTE | 2019-02-06 09:44 | Discharge Summary ---
- NOTES TO OUTPATIENT PROVIDER Notes to Outpatient Provider: - Aldactone held because of low BP, will need to assess if/when to resume. Repeat BMP in 5-7 days. Date of Encounter: 02/06/19 Time of Encounter: 09:42 - Discharge Diagnosis (1) Hepatic encephalopathy Priority: Primary Status: Resolved (2) Fluid overload Priority: Secondary Status: Acute Qualifiers: Hypervolemia type: unspecified Qualified Code(s): E87.70 - Fluid overload, unspecified (3) DVT prophylaxis Priority: Secondary Status: Acute (4) Anemia Priority: Secondary Status: Chronic Qualifiers: Anemia type: unspecified type Qualified Code(s): D64.9 - Anemia, unspecified (5) Cirrhosis of liver Priority: Secondary Status: Chronic Qualifiers: Hepatic cirrhosis type: unspecified hepatic cirrhosis Ascites presence: unspecified Qualified Code(s): K74.60 - Unspecified cirrhosis of liver (6) DM type 2 (diabetes mellitus, type 2) Priority: Secondary Status: Chronic Qualifiers: Diabetes mellitus senior care insulin use: without senior care use Diabetes mellitus complication status: without complication Qualified Code(s): E11.9 - Type 2 diabetes mellitus without complications (7) Esophageal varices Priority: Secondary Status: Chronic Qualifiers: Esophageal varices type: unspecified type Esophageal varices bleeding: without bleeding Qualified Code(s): I85.00 - Esophageal varices without bleeding (8) Hypertension Priority: Secondary Status: Chronic Qualifiers: Hypertension type: essential hypertension Qualified Code(s): I10 - Essential (primary) hypertension Hospital course: Mr. Diaz is a 53 year old male with past medical history of cirrhosis, type 2 diabetes, pancytopenia presented to the ED is transferred from [place] for confusion. He has multiple admissions for hepatic encephalopathy, takes lactulose QID and Rifaxamin BID at home. During this admission patient was evaluated by GI with improvement of clinical course. Patient was discharged one week ago to follow up with GI as outpatient in addition to transplant specialist. He was supposed to have a follow-up appointment with residency clinic at [facility] but did not show. On day of this admission, he was found in the car at 9 AM confused and was brought in by his family. He was admitted for further monitoring and treatment. After resuming Lactulose and Rifaxamin patient returned to baseline. GI consulted and did a workup for anemia. EGD done showing grade II esophageal varicies, portal hypertensive gastropathy. Recommendations were to continue current management on iron. He was also fluid overloaded on admission. There is concern for medical non-compliance. Family brought in Islas[employer] for him and glucose had significant increase. He received IV Lasix to diurese and edema improved significantly. Spironolactone was held on admission because blood pressure was normal/lower normal while being diuresed with Lasix. On discharge, home Bumex will be increased to 4 mg daily as he is significantly fluid overloaded on 2 mg daily. [facility] will be set up to assist with medical compliance. Will need a follow-up BMP, add back spironolactone if able. He is high risk of returning due to lifestyle and non-compliance. - Time Spent with Patient Total time spent providing and/or coordinating discharge services: - Discharge Medications Prescriptions: New Folic Acid 1 mg PO DAILY #30 tablet Vitamin B Complex/Vit C/Vit E [Stresstab] 1 each PO DAILY #30 tablet Thiamine (B-1) [Vitamin B-1] 100 mg PO DAILY #30 tablet Continued Ascorbate Calcium [Vitamin C] 500 mg PO QAM Glimepiride [Amaryl] 2 mg PO QAM Ondansetron ODT [Zofran ODT] 4 mg SL Q8H PRN PRN Reason: NAUSEA/VOMITING Rifaximin [Xifaxan] 550 mg PO BID 30 Days #60 tablet Lactulose 30 gm PO QID Multivitamin [One Daily Multivitamin] 1 tab PO DAILY #30 tab Pantoprazole Sodium [Protonix] 40 mg PO BID Zinc Gluconate 100 mg PO BID Atorvastatin Calcium [Lipitor] 20 mg PO DAILY Ferrous Sulfate 325 mg PO DAILY #30 tablet metFORMIN [Glucophage] 500 mg PO BIDWM #60 tablet Discontinued Spironolactone 150 mg PO BID Bumetanide 2 mg PO DAILY Home Medications: Atorvastatin Calcium [Lipitor] 20 mg PO DAILY 09/04/18 [History] Pantoprazole Sodium [Protonix] 40 mg PO BID 09/04/18 [History] Zinc Gluconate 100 mg PO BID 09/04/18 [History] Ferrous Sulfate 325 mg PO DAILY #30 tablet 09/06/18 [Rx] metFORMIN [Glucophage] 500 mg PO BIDWM #60 tablet 09/06/18 [Rx] Ascorbate Calcium [Vitamin C] 500 mg PO QAM 12/16/18 [History] Glimepiride [Amaryl] 2 mg PO QAM 12/17/18 [History] Ondansetron ODT [Zofran ODT] 4 mg SL Q8H PRN 12/17/18 [History] Rifaximin [Xifaxan] 550 mg PO BID 30 Days #60 tablet 12/18/18 [Rx] Lactulose 30 gm PO QID 01/27/19 [History] Bumetanide [Bumex] 4 mg PO DAILY 7 Days #28 tablet 02/06/19 [Rx] Folic Acid 1 mg PO DAILY #30 tablet 02/06/19 [Rx] Multivitamin [One Daily Multivitamin] 1 tab PO DAILY #30 tab 02/06/19 [Rx] Thiamine (B-1) [Vitamin B-1] 100 mg PO DAILY #30 tablet 02/06/19 [Rx] Vitamin B Complex/Vit C/Vit E [Stresstab] 1 each PO DAILY #30 tablet 02/06/19 [Rx] Allergies/Adverse Reactions: Allergy/AdvReac Type Severity Reaction Status Date / Time No Known Allergies Allergy Verified 01/27/19 23:49 Date of admission: 02/04/19 15:15 Primary care physician: Dapnhie Calvillo CNP Consults: 02/02/19 06:00 Consult to Gastroenterology [CONS] Routine Consulting Provider: [facility] Reason for Consult: hepatic encephalopathy, re-admission. Call Completed: No Discharging clinician: Ariella Trevino - Constitutional Vitals: Temp Pulse Resp BP Pulse Ox 98.1 F 87 16 100/61 99 02/06/19 07:12 02/06/19 07:12 02/06/19 07:12 02/06/19 07:12 02/06/19 07:12 Exam: General: AAO 3, no acute distress, answers questions appropriately Head: normocephalic, atraumatic Eyes: ANMOL, no icterus Cardio: RRR, no murmurs, rubs, or gallops Respiratory: CTAB, no wheezing, rhonchi, rales Abd: normal bowel sounds, no guarding or rigidity, distended no fluid wave noted. Edema noted. Extremities: 1+ pitting edema bilaterally lower extremities, pulses equal bilaterally, warm Skin: warm, dry, intactd - Patient Status Disposition: Home, Self-Care Condition: Fair Functional capacity at discharge: independent ambulation Overall status at discharge: patient is back to baseline - Discharge Instructions Follow Up With: Daphnie Calvillo CNP [Primary Care Provider] - (The patient will need to call the office to schedule a follow up appointment. ) - Diet and Activity Activity: increase activity as tolerated Diet: diabetic diet, low salt diet
--- NOTE | 2019-02-06 10:05 | Physician Discharge Referral ---
Home Health/Hosp Referral Info Transfer to: Home Health Provider in Charge Post Discharge: PCP - Diagnosis (1) Hepatic encephalopathy Priority: Primary Status: Resolved (2) Fluid overload Priority: Secondary Status: Acute (3) DVT prophylaxis Priority: Secondary Status: Acute (4) Anemia Priority: Secondary Status: Chronic (5) Cirrhosis of liver Priority: Secondary Status: Chronic (6) DM type 2 (diabetes mellitus, type 2) Priority: Secondary Status: Chronic (7) Esophageal varices Priority: Secondary Status: Chronic (8) Hypertension Priority: Secondary Status: Chronic - Respiratory Orders Smoking Cessation: Smoking cessation has been advised. For more information, call the [place] Tobacco Quit Line at 2-681-JKVU-NOW. - Activity Activity Orders: Up ad shaunna - Services Needed Following services are medically necessary services: Nursing, Med Social Work Home Care Orders: Help with medications - Transfer Medications Prescriptions: Bumetanide [Bumex] 4 mg PO DAILY 7 Days #28 tablet Prescription Printed Folic Acid 1 mg PO DAILY #30 tablet Prescription Printed Multivitamin [One Daily Multivitamin] 1 tab PO DAILY #30 tab Prescription Printed Vitamin B Complex/Vit C/Vit E [Stresstab] 1 each PO DAILY #30 tablet Prescription Printed Thiamine (B-1) [Vitamin B-1] 100 mg PO DAILY #30 tablet Prescription Printed Home Medications: Atorvastatin Calcium [Lipitor] 20 mg PO DAILY 09/04/18 [History] Pantoprazole Sodium [Protonix] 40 mg PO BID 09/04/18 [History] Zinc Gluconate 100 mg PO BID 09/04/18 [History] Ferrous Sulfate 325 mg PO DAILY #30 tablet 09/06/18 [Rx] metFORMIN [Glucophage] 500 mg PO BIDWM #60 tablet 09/06/18 [Rx] Ascorbate Calcium [Vitamin C] 500 mg PO QAM 12/16/18 [History] Glimepiride [Amaryl] 2 mg PO QAM 12/17/18 [History] Ondansetron ODT [Zofran ODT] 4 mg SL Q8H PRN 12/17/18 [History] Rifaximin [Xifaxan] 550 mg PO BID 30 Days #60 tablet 12/18/18 [Rx] Lactulose 30 gm PO QID 01/27/19 [History] Bumetanide [Bumex] 4 mg PO DAILY 7 Days #28 tablet 02/06/19 [Rx] Folic Acid 1 mg PO DAILY #30 tablet 02/06/19 [Rx] Multivitamin [One Daily Multivitamin] 1 tab PO DAILY #30 tab 02/06/19 [Rx] Thiamine (B-1) [Vitamin B-1] 100 mg PO DAILY #30 tablet 02/06/19 [Rx] Vitamin B Complex/Vit C/Vit E [Stresstab] 1 each PO DAILY #30 tablet 02/06/19 [Rx] Allergies/Adverse Reactions: Allergy/AdvReac Type Severity Reaction Status Date / Time No Known Allergies Allergy Verified 01/27/19 23:49 Certification: Further, I certify that my clinical findings support that this patient is homebound (i.e. absences from home require considerable and taxing effort and are for medical reasons or yazdanism services or infrequently or short duration when for other reasons) because: Homebound Reason: Patient requires assistance of a person or device to safely leave home, Altered mental status requiring supervision when leaving home Attestation: My signature below is to certify that this patient is under my care and that I, or nurse practitioner, or a physician's talent assistant working with me, has a [id number] encounter with this patient.
[2019-02-06] MEDS ORDERED: FLU Vac QV 19-20 (6Month+)/PF 0.5 ML SYRINGE IM ONE (10:41)
== END 2019-02-06 11:43 | disposition home or self-care (01) ==
LOC: 3ANU → SUATTDRO 20:06
PROVIDERS: ADMIT Internal Medicine; ATTEND Student in an Organized Health Care Education/Training Program

== ENCOUNTER 2019-02-24 14:46 | Inpatient (IN) ==
[2019-02-24] MEDS ORDERED: Naloxone 0.4 MG/ML INJ IVP PRN (16:46)
[2019-02-24] MEDS ORDERED: Dextrose Gel 15 GM/37.5 ML TUBE PO PRN ×2 (17:34)
[2019-02-24] MEDS ORDERED: D5% in Water 1,000 ML IVC PRN (17:34)
[2019-02-24] MEDS ORDERED: *HR* Dextrose 50 % in Water (Syg) 50 ML SYRINGE IVP PRN (17:34)
[2019-02-24 17:39] LABS: Hematocrit 22.8 % (37.5-50.1); Hemoglobin 7.1 g/dL (12.9-16.9)
[2019-02-24] MEDS: Lactulose Oral Soln 20 GM/30 ML UDC PO SCH ×2 (18:21→20:35)
[2019-02-24] MEDS: Multivit/Ca/Min/Fe/FA 1 TAB TABLET PO SCH (18:21)
[2019-02-24] MEDS: Bumetanide 1 MG TABLET PO SCH (18:21)
[2019-02-24] MEDS: Ascorbic Acid 500 MG TABLET PO SCH (18:22)
[2019-02-24] MEDS: Folic Acid 1 MG TABLET PO SCH (18:22)
[2019-02-24] MEDS ORDERED: 0.9 % Sodium Chloride 250 ML IVC SCH (18:30)
[2019-02-24] MEDS: Pantoprazole 40 MG VIAL IVP SCH (18:47)
[2019-02-24 19:48] LABS: Hematocrit 22.5 % (37.5-50.1); Hemoglobin 7.2 g/dL (12.9-16.9)
[2019-02-24] MEDS: Insulin LISPRO 300 UNITS/3 ML VIAL SQ SCH (20:34)
[2019-02-24] MEDS ORDERED: NON-FORMULARY MEDICATION 1 EACH EACH (Pantoprazole Sodium [Protonix] 40 MG) PO SCH (21:00)
[2019-02-25 04:44] LABS: Nucleated Red Blood Cells 0.4 /100 WBC (0)
[2019-02-25 04:45] LABS: Basophils # 0.1 K/mcL (0.0-0.2); Basophils % 1.4 %; Eosinophils # 0.4 K/mcL (0.0-0.6); Eosinophils % 7.3 %; Hematocrit 24.2 % (37.5-50.1); Hemoglobin 7.6 g/dL (12.9-16.9); Immature Granulocytes % 0.4 % (0-4); Immature Platelets 2.1 % (1.1-6.1); Lymphocytes # 1.1 K/mcL (0.6-4.6); Lymphocytes % 22.2 %; Mean Corpuscular HGB Conc 31.4 g/dL (31.6-35.5); Mean Corpuscular Volume 105.2 fL (83.0-100.0); Mean Platelet Volume 9.7 fL (9.4-12.4); Monocytes # 0.7 K/mcL (0.0-1.3); Monocytes % 13.5 %; Segmented Neutrophils % 55.2 %
[2019-02-25 04:51] LABS: INR 1.5; Prothrombin Time 16.8 Seconds (9.4-12.1)
[2019-02-25 05:02] LABS: Alanine Aminotransferase 51 Units/L (7-52); Albumin 2.6 g/dL (3.5-5.7); Alkaline Phosphatase 105 Units/L (34-104); Aspartate Amino Transferase 71 Units/L (13-39); BUN/Creatinine Ratio 18 (6-26); Bilirubin,Direct 0.4 mg/dL (0.0-0.2); Bilirubin,Indirect 1.7 mg/dL (0.0-1.2); Bilirubin,Total 2.1 mg/dL (0.3-1.0); Blood Urea Nitrogen 15 mg/dL (6-20); Calcium 8.1 mg/dL (8.6-10.3); Carbon Dioxide 26 mEq/L (23-29); Chloride 106 mEq/L (98-107); Globulin 2.6 g/dL (2.4-3.5); Glucose 118 mg/dL (70-105); Magnesium 1.8 mg/dL (1.6-2.6); Osmolality,Calculated 288 (280-300); Phosphorous 3.2 mg/dL (2.7-4.5); Potassium 3.5 mEq/L (3.5-5.1); Sodium 138 mEq/L (136-145); Total Protein 5.2 g/dL (6.4-8.9); eGFR For African Americans > 60 (> 60); eGFR For Non-African Americans > 60 (> 60)
[2019-02-25] MEDS: Pantoprazole 40 MG VIAL IVP SCH ×2 (05:41→17:49)
[2019-02-25 06:10] LABS: Neutrophils # 2.8 K/mcL (1.6-8.9); Platelet Count 88 K/mcL (140-400)
[2019-02-25] MEDS: Insulin LISPRO 300 UNITS/3 ML VIAL SQ SCH ×4 (07:48→21:00)
[2019-02-25] MEDS: Bumetanide 1 MG TABLET PO SCH ×2 (09:02→17:49)
[2019-02-25] MEDS: Ascorbic Acid 500 MG TABLET PO SCH (09:03)
[2019-02-25] MEDS: Folic Acid 1 MG TABLET PO SCH (09:03)
[2019-02-25] MEDS: Multivit/Ca/Min/Fe/FA 1 TAB TABLET PO SCH (09:03)
[2019-02-25] MEDS: Zinc Sulfate 220 MG CAPSULE PO SCH (09:03)
[2019-02-25] MEDS: Thiamine (B-1) 100 MG TABLET PO SCH (09:03)
[2019-02-25] MEDS: Lactulose Oral Soln 20 GM/30 ML UDC PO SCH ×4 (09:04→20:53)
[2019-02-25 12:21] LABS: Hemoglobin 8.3 g/dL (12.9-16.9)
[2019-02-25] MEDS ORDERED: Tiotropium 18 MCG inhalation IH SCH (12:45)
[2019-02-25 17:02] LABS: Hematocrit 25.1 % (37.5-50.1)
[2019-02-26 04:20] LABS: Mean Corpuscular HGB Conc 31.8 g/dL (31.6-35.5); Red Blood Count 2.27 M/mcL (4.19-5.50); Red Cell Distribution Width 17.8 % (11.5-14.5)
[2019-02-26 04:22] LABS: Basophils # 0.1 K/mcL (0.0-0.2); Basophils % 1.2 %; Eosinophils # 0.4 K/mcL (0.0-0.6); Eosinophils % 8.2 %; Hematocrit 23.6 % (37.5-50.1); Hemoglobin 7.5 g/dL (12.9-16.9); Immature Granulocytes % 0.4 % (0-4); Lymphocytes # 1.1 K/mcL (0.6-4.6); Lymphocytes % 21.5 %; Mean Platelet Volume 9.7 fL (9.4-12.4); Monocytes # 0.6 K/mcL (0.0-1.3); Monocytes % 11.6 %; Neutrophils # 2.9 K/mcL (1.6-8.9); Platelet Count 87 K/mcL (140-400); Segmented Neutrophils % 57.1 %
[2019-02-26 04:40] LABS: BUN/Creatinine Ratio 16 (6-26); Blood Urea Nitrogen 14 mg/dL (6-20); Calcium 8.1 mg/dL (8.6-10.3); Carbon Dioxide 25 mEq/L (23-29); Chloride 105 mEq/L (98-107); Glucose 148 mg/dL (70-105); Osmolality,Calculated 287 (280-300); Potassium 3.5 mEq/L (3.5-5.1); Sodium 137 mEq/L (136-145); eGFR For African Americans > 60 (> 60); eGFR For Non-African Americans > 60 (> 60)
[2019-02-26] MEDS: Pantoprazole 40 MG VIAL IVP SCH (05:19)
[2019-02-26 06:41] VITALS: BP 111/55
[2019-02-26] MEDS: Multivit/Ca/Min/Fe/FA 1 TAB TABLET PO SCH (09:57)
[2019-02-26] MEDS: Zinc Sulfate 220 MG CAPSULE PO SCH (09:57)
[2019-02-26] MEDS: Folic Acid 1 MG TABLET PO SCH (09:57)
[2019-02-26] MEDS: Thiamine (B-1) 100 MG TABLET PO SCH (09:57)
[2019-02-26] MEDS: Ascorbic Acid 500 MG TABLET PO SCH (09:57)
[2019-02-26] MEDS: Bumetanide 1 MG TABLET PO SCH (09:58)
[2019-02-26] MEDS: Lactulose Oral Soln 20 GM/30 ML UDC PO SCH (09:58)
[2019-02-26] MEDS: Insulin LISPRO 300 UNITS/3 ML VIAL SQ SCH (10:03)
== END 2019-02-26 10:15 | disposition home or self-care (01) | DRG 279 ==
LOC: 3BNU
PROVIDERS: ADMIT Internal Medicine; ATTEND Internal Medicine

== ENCOUNTER 2019-03-16 17:11 | Observation (INO) ==
[2019-03-16] MEDS ORDERED: Bumetanide 1 MG/4 ML VIAL IVP STA (20:22)
[2019-03-16 20:27] LABS: Basophils % 1.1 %; Mean Platelet Volume 9.9 fL (9.4-12.4)
[2019-03-16 20:29] LABS: Basophils # 0.1 K/mcL (0.0-0.2); Eosinophils # 0.3 K/mcL (0.0-0.6); Eosinophils % 5.8 %; Hematocrit 23.8 % (37.5-50.1); Hemoglobin 7.7 g/dL (12.9-16.9); Immature Granulocytes % 0.2 % (0-4); Immature Platelets 2.2 % (1.1-6.1); Lymphocytes # 0.7 K/mcL (0.6-4.6); Lymphocytes % 11.8 %; Mean Corpuscular HGB Conc 32.4 g/dL (31.6-35.5); Mean Corpuscular Hemoglobin 32.4 pg (28.0-33.3); Monocytes # 0.6 K/mcL (0.0-1.3); Monocytes % 10.4 %; Red Blood Count 2.38 M/mcL (4.19-5.50); Red Cell Distribution Width 17.7 % (11.5-14.5); Segmented Neutrophils % 70.7 %; White Blood Count 5.7 K/mcL (4.3-11.1)
[2019-03-16 20:34] LABS: Platelet Count 87 K/mcL (140-400)
[2019-03-16 20:42] LABS: INR 1.5; Prothrombin Time 17.6 Seconds (9.4-12.1)
[2019-03-16 20:49] LABS: Alanine Aminotransferase 37 Units/L (7-52); Albumin 2.5 g/dL (3.5-5.7); Alkaline Phosphatase 132 Units/L (34-104); Aspartate Amino Transferase 59 Units/L (13-39); BUN/Creatinine Ratio 16 (6-26); Bilirubin,Direct 0.7 mg/dL (0.0-0.2); Bilirubin,Indirect 1.5 mg/dL (0.0-1.0); Bilirubin,Total 2.2 mg/dL (0.3-1.0); Blood Urea Nitrogen 13 mg/dL (6-20); Calcium 8.1 mg/dL (8.6-10.3); Carbon Dioxide 26 mEq/L (23-29); Chloride 103 mEq/L (98-107); Globulin 2.6 g/dL (2.4-3.5); Glucose 170 mg/dL (70-105); Lipase 86 Units/L (11-82); Osmolality,Calculated 284 (280-300); Potassium 3.3 mEq/L (3.5-5.1); Sodium 135 mEq/L (136-145); Total Protein 5.1 g/dL (6.4-8.9); Troponin I < 0.03 ng/mL (< 0.04); eGFR For African Americans > 60 (> 60); eGFR For Non-African Americans > 60 (> 60)
[2019-03-16 20:51] LABS: Platelet Estimate Decreased (Normal)
[2019-03-16] MEDS ORDERED: Ondansetron 4 MG/2 ML VIAL IVP PRN (22:14)
[2019-03-16] MEDS ORDERED: Naloxone 0.4 MG/ML INJ IVP PRN (22:14)
[2019-03-17] MEDS ORDERED: Albumin 25% 25gram/100mL 25 GM/100 ML IV.SOLN IVPB SCH (04:05)
[2019-03-17] MEDS ORDERED: Albumin 25% 25gram/100mL 25 GM/100 ML IV.SOLN IVPB ONE (04:15)
[2019-03-17] MEDS ORDERED: D5% in Water 1,000 ML IVC PRN (04:21)
[2019-03-17] MEDS ORDERED: Dextrose Gel 15 GM/37.5 ML TUBE PO PRN ×2 (04:21)
[2019-03-17] MEDS ORDERED: *HR* Dextrose 50 % in Water (Syg) 50 ML SYRINGE IVP PRN (04:21)
[2019-03-17] MEDS: Insulin LISPRO 300 UNITS/3 ML VIAL SQ SCH ×4 (05:09→16:24)
[2019-03-17] MEDS: Bumetanide 1 MG/4 ML VIAL IVP SCH ×2 (06:03→07:22)
[2019-03-17 06:52] LABS: Eosinophils % 6.9 %; Hematocrit 21.8 % (37.5-50.1)
[2019-03-17 06:54] LABS: Basophils # 0.1 K/mcL (0.0-0.2); Basophils % 1.2 %; Eosinophils # 0.3 K/mcL (0.0-0.6); Immature Granulocytes % 0.5 % (0-4); Immature Platelets 2.4 % (1.1-6.1); Lymphocytes % 15.8 %; Mean Corpuscular HGB Conc 32.1 g/dL (31.6-35.5); Mean Corpuscular Hemoglobin 31.8 pg (28.0-33.3); Mean Corpuscular Volume 99.1 fL (83.0-100.0); Mean Platelet Volume 10.4 fL (9.4-12.4); Monocytes # 0.5 K/mcL (0.0-1.3); Monocytes % 12.1 %; Neutrophils # 2.6 K/mcL (1.6-8.9); Red Cell Distribution Width 17.9 % (11.5-14.5); Segmented Neutrophils % 63.5 %; White Blood Count 4.1 K/mcL (4.3-11.1)
[2019-03-17 06:57] LABS: Lymphocytes # 0.7 K/mcL (0.6-4.6); Platelet Count 80 K/mcL (140-400)
[2019-03-17 07:00] LABS: INR 1.7; Prothrombin Time 19.2 Seconds (9.4-12.1)
[2019-03-17 07:03] LABS: Activated Partial Thrombo Time 32.2 Seconds (26.0-36.0)
[2019-03-17 07:11] LABS: Alanine Aminotransferase 35 Units/L (7-52); Albumin 2.6 g/dL (3.5-5.7); Alkaline Phosphatase 131 Units/L (34-104); Aspartate Amino Transferase 55 Units/L (13-39); BUN/Creatinine Ratio 16 (6-26); Bilirubin,Total 1.9 mg/dL (0.3-1.0); Blood Urea Nitrogen 13 mg/dL (6-20); Calcium 7.9 mg/dL (8.6-10.3); Carbon Dioxide 28 mEq/L (23-29); Chloride 103 mEq/L (98-107); Globulin 2.5 g/dL (2.4-3.5); Glucose 103 mg/dL (70-105); Osmolality,Calculated 284 (280-300); Potassium 3.3 mEq/L (3.5-5.1); Sodium 137 mEq/L (136-145); Total Protein 5.1 g/dL (6.4-8.9); eGFR For African Americans > 60 (> 60); eGFR For Non-African Americans > 60 (> 60)
[2019-03-17] MEDS: Folic Acid 1 MG TABLET PO SCH (07:15)
[2019-03-17] MEDS: Multivit/Ca/Min/Fe/FA 1 TAB TABLET PO SCH (07:15)
[2019-03-17] MEDS: Thiamine (B-1) 100 MG TABLET PO SCH (07:15)
[2019-03-17] MEDS: Lactulose Oral Soln 20 GM/30 ML UDC PO SCH ×4 (07:16→21:07)
[2019-03-17] MEDS ORDERED: ZINC GLUCONATE 100 MG PO SCH (09:00)
[2019-03-17] MEDS ORDERED: Ascorbic Acid 500 MG TABLET PO SCH (09:00)
[2019-03-17] MEDS ORDERED: 0.9 % Sodium Chloride 250 ML ONE ×2 (09:03→14:17)
[2019-03-17] MEDS: Zinc Sulfate 220 MG CAPSULE PO SCH (10:34)
[2019-03-17] MEDS: Ascorbic Acid 500 MG TABLET PO SCH (10:35)
[2019-03-17 20:18] LABS: Hematocrit 26.9 % (37.5-50.1)
[2019-03-17 20:19] LABS: Hemoglobin 9.1 g/dL (12.9-16.9)
[2019-03-17] MEDS ORDERED: Insulin DETEMIR 100 UNIT/ML X5UNITS SQ SCH (21:00)
[2019-03-18 05:47] LABS: Bilirubin,Urine Negative (Negative); Blood,Urine Negative (Negative); Clarity,Urine Clear (Clear); Color,Urine Dark Yellow (Yellow); Glucose,Urine (UA) Normal (Normal); Ketones,Urine Negative (Negative); Leukocyte Esterase,Urine Negative (Negative); Nitrite,Urine Negative (Negative); Protein,Urine Negative (Neg-Trace); Specific Gravity,Urine 1.026 (1.010-1.025); Urobilinogen,Urine Normal (Normal)
[2019-03-18] MEDS ORDERED: *HR* Propofol 200 MG/20 ML VIAL IVP ONE ×2 (06:21→07:52)
[2019-03-18] MEDS ORDERED: Lidocaine -MPF 2% 2 ML VIAL ONE (06:21)
[2019-03-18 07:31] LABS: Hemoglobin 8.8 g/dL (12.9-16.9)
[2019-03-18 07:33] LABS: Basophils # 0.1 K/mcL (0.0-0.2); Basophils % 1.5 %; Eosinophils # 0.3 K/mcL (0.0-0.6); Eosinophils % 8.5 %; Hematocrit 26.6 % (37.5-50.1); Immature Granulocytes % 0.2 % (0-4); Immature Platelets 2.3 % (1.1-6.1); Lymphocytes # 0.8 K/mcL (0.6-4.6); Lymphocytes % 19.4 %; Mean Corpuscular HGB Conc 33.1 g/dL (31.6-35.5); Mean Corpuscular Hemoglobin 32.5 pg (28.0-33.3); Mean Corpuscular Volume 98.2 fL (83.0-100.0); Monocytes # 0.6 K/mcL (0.0-1.3); Monocytes % 14.2 %; Neutrophils # 2.3 K/mcL (1.6-8.9); Red Blood Count 2.71 M/mcL (4.19-5.50); Segmented Neutrophils % 56.2 %
[2019-03-18 07:52] LABS: Platelet Count 77 K/mcL (140-400)
[2019-03-18 07:53] LABS: Alanine Aminotransferase 36 Units/L (7-52); Albumin 2.6 g/dL (3.5-5.7); Alkaline Phosphatase 126 Units/L (34-104); Aspartate Amino Transferase 58 Units/L (13-39); BUN/Creatinine Ratio 16 (6-26); Bilirubin,Total 2.3 mg/dL (0.3-1.0); Blood Urea Nitrogen 12 mg/dL (6-20); Calcium 8.1 mg/dL (8.6-10.3); Carbon Dioxide 29 mEq/L (23-29); Chloride 105 mEq/L (98-107); Globulin 2.5 g/dL (2.4-3.5); Glucose 98 mg/dL (70-105); Osmolality,Calculated 290 (280-300); Potassium 3.4 mEq/L (3.5-5.1); Sodium 140 mEq/L (136-145); Total Protein 5.1 g/dL (6.4-8.9); eGFR For African Americans > 60 (> 60); eGFR For Non-African Americans > 60 (> 60)
[2019-03-18] MEDS: Insulin LISPRO 300 UNITS/3 ML VIAL SQ SCH (09:33)
[2019-03-18] MEDS: Ascorbic Acid 500 MG TABLET PO SCH (09:34)
[2019-03-18] MEDS: Thiamine (B-1) 100 MG TABLET PO SCH (09:36)
[2019-03-18] MEDS: Multivit/Ca/Min/Fe/FA 1 TAB TABLET PO SCH (09:36)
[2019-03-18] MEDS: Folic Acid 1 MG TABLET PO SCH (09:37)
[2019-03-18] MEDS: Lactulose Oral Soln 20 GM/30 ML UDC PO SCH (09:38)
[2019-03-18] MEDS: Zinc Sulfate 220 MG CAPSULE PO SCH (09:38)
[2019-03-18] MEDS: Bumetanide 1 MG/4 ML VIAL IVP SCH (09:38)
[2019-03-18 11:19] VITALS: BP 141/72
== END 2019-03-18 12:36 | disposition home or self-care (01) ==
LOC: EMEROOARM 17:11 → 2ANU 17:11 → SUATTDRO 21:11 → 2ANU 21:45
PROVIDERS: ADMIT Internal Medicine; ATTEND Family Medicine

== ENCOUNTER 2019-03-26 12:22 | Observation (INO) ==
[2019-03-26] MEDS ORDERED: Ondansetron 4 MG/2 ML VIAL IVP PRN (15:33)
[2019-03-26] MEDS ORDERED: Naloxone 0.4 MG/ML INJ IVP PRN (15:33)
[2019-03-26] MEDS ORDERED: *HR* Dextrose 50 % in Water (Syg) 50 ML SYRINGE IVP PRN (16:07)
[2019-03-26] MEDS ORDERED: D5% in Water 1,000 ML IVC PRN (16:07)
[2019-03-26] MEDS ORDERED: Dextrose Gel 15 GM/37.5 ML TUBE PO PRN ×2 (16:07)
[2019-03-26] MEDS: Insulin LISPRO 300 UNITS/3 ML VIAL SQ SCH (16:36)
[2019-03-26] MEDS ORDERED: Lactulose Oral Soln 20 GM/30 ML UDC PO SCH (17:00)
[2019-03-26] MEDS: Lactulose Oral Soln 20 GM/30 ML UDC PO SCH ×2 (17:07→20:21)
[2019-03-26] MEDS: Bumetanide 1 MG TABLET PO SCH (20:22)
[2019-03-27 06:35] LABS: Basophils # 0.1 K/mcL (0.0-0.2); Basophils % 0.9 %; Eosinophils # 0.6 K/mcL (0.0-0.6); Hematocrit 28.1 % (37.5-50.1); Hemoglobin 9.4 g/dL (12.9-16.9); Immature Granulocytes % 0.5 % (0-4); Lymphocytes # 1.1 K/mcL (0.6-4.6); Lymphocytes % 18.9 %; Mean Corpuscular HGB Conc 33.5 g/dL (31.6-35.5); Mean Corpuscular Hemoglobin 32.5 pg (28.0-33.3); Mean Corpuscular Volume 97.2 fL (83.0-100.0); Monocytes # 0.8 K/mcL (0.0-1.3); Monocytes % 13.6 %; Neutrophils # 3.1 K/mcL (1.6-8.9); Platelet Count 118 K/mcL (140-400); Red Blood Count 2.89 M/mcL (4.19-5.50); Red Cell Distribution Width 17.5 % (11.5-14.5); Segmented Neutrophils % 56.1 %; White Blood Count 5.6 K/mcL (4.3-11.1)
[2019-03-27 06:44] VITALS: BP 125/83
[2019-03-27 06:50] LABS: Alanine Aminotransferase 57 Units/L (7-52); Albumin 2.6 g/dL (3.5-5.7); Albumin/Globulin Ratio 0.8 (1.1-2.2); Alkaline Phosphatase 152 Units/L (34-104); Aspartate Amino Transferase 91 Units/L (13-39); BUN/Creatinine Ratio 13 (6-26); Bilirubin,Total 2.3 mg/dL (0.3-1.0); Blood Urea Nitrogen 11 mg/dL (6-20); Calcium 8.2 mg/dL (8.6-10.3); Carbon Dioxide 31 mEq/L (23-29); Chloride 104 mEq/L (98-107); Globulin 3.1 g/dL (2.4-3.5); Glucose 110 mg/dL (70-105); Magnesium 1.7 mg/dL (1.6-2.6); Osmolality,Calculated 292 (280-300); Potassium 3.5 mEq/L (3.5-5.1); Sodium 141 mEq/L (136-145); Total Protein 5.7 g/dL (6.4-8.9); eGFR For African Americans > 60 (> 60); eGFR For Non-African Americans > 60 (> 60)
[2019-03-27] MEDS: Bumetanide 1 MG TABLET PO SCH (08:18)
[2019-03-27] MEDS: Lactulose Oral Soln 20 GM/30 ML UDC PO SCH (08:19)
[2019-03-27] MEDS: Insulin LISPRO 300 UNITS/3 ML VIAL SQ SCH (08:25)
[2019-03-27] MEDS ORDERED: Ascorbic Acid 500 MG TABLET PO SCH (09:00)
[2019-03-27] MEDS ORDERED: Folic Acid 1 MG TABLET PO SCH (09:00)
[2019-03-27] MEDS ORDERED: Multivit/Ca/Min/Fe/FA 1 TAB TABLET PO SCH (09:00)
[2019-03-27] MEDS ORDERED: Thiamine (B-1) 100 MG TABLET PO SCH (09:00)
== END 2019-03-27 11:42 | disposition home or self-care (01) ==
LOC: 3ANU → SUATTDRO 14:06
PROVIDERS: ADMIT Internal Medicine; ATTEND Internal Medicine

== ENCOUNTER 2019-03-30 14:25 | Inpatient (IN) ==
[2019-03-30] MEDS ORDERED: Naloxone 0.4 MG/ML INJ IVP PRN (17:08)
[2019-03-30] MEDS ORDERED: *HR* Metoprolol 5 MG/5 ML VIAL IVP PRN (17:12)
[2019-03-30] MEDS ORDERED: Furosemide 40 MG/4 ML VIAL IVP ONE (17:48)
[2019-03-30] MEDS: *HR* Heparin 5,000 UNIT/ML VIAL SQ SCH (21:33)
[2019-03-30] MEDS: Insulin LISPRO 300 UNITS/3 ML VIAL SQ SCH (21:37)
[2019-03-30] MEDS: Lactulose Oral Soln 20 GM/30 ML UDC PO SCH (21:38)
[2019-03-30] MEDS: ZINC GLUCONATE 100 MG PO SCH (21:38)
[2019-03-31] MEDS: *HR* Heparin 5,000 UNIT/ML VIAL SQ SCH ×2 (05:03→17:21)
[2019-03-31 05:07] LABS: Basophils # 0.1 K/mcL (0.0-0.2); Basophils % 1.1 %; Eosinophils # 0.4 K/mcL (0.0-0.6); Eosinophils % 5.8 %; Hemoglobin 9.3 g/dL (12.9-16.9); Immature Granulocytes % 0.6 % (0-4); Lymphocytes # 1.1 K/mcL (0.6-4.6); Lymphocytes % 16.5 %; Mean Corpuscular HGB Conc 32.1 g/dL (31.6-35.5); Mean Corpuscular Hemoglobin 32.6 pg (28.0-33.3); Mean Corpuscular Volume 101.8 fL (83.0-100.0); Mean Platelet Volume 11.1 fL (9.4-12.4); Monocytes # 0.8 K/mcL (0.0-1.3); Monocytes % 12.4 %; Platelet Count 104 K/mcL (140-400); Red Blood Count 2.85 M/mcL (4.19-5.50); Red Cell Distribution Width 18.3 % (11.5-14.5); Segmented Neutrophils % 63.6 %; White Blood Count 6.4 K/mcL (4.3-11.1)
[2019-03-31 05:30] LABS: BUN/Creatinine Ratio 19 (6-26); Blood Urea Nitrogen 16 mg/dL (6-20); Calcium 8.3 mg/dL (8.6-10.3); Carbon Dioxide 27 mEq/L (23-29); Chloride 104 mEq/L (98-107); Glucose 109 mg/dL (70-105); Osmolality,Calculated 290 (280-300); Potassium 3.2 mEq/L (3.5-5.1); Sodium 139 mEq/L (136-145); eGFR For African Americans > 60 (> 60); eGFR For Non-African Americans > 60 (> 60)
[2019-03-31] MEDS: Multivit/Ca/Min/Fe/FA 1 TAB TABLET PO SCH (08:09)
[2019-03-31] MEDS: Lactulose Oral Soln 20 GM/30 ML UDC PO SCH ×4 (08:09→21:49)
[2019-03-31] MEDS: Folic Acid 1 MG TABLET PO SCH (08:09)
[2019-03-31] MEDS: Thiamine (B-1) 100 MG TABLET PO SCH (08:09)
[2019-03-31] MEDS: Insulin LISPRO 300 UNITS/3 ML VIAL SQ SCH ×4 (08:10→21:45)
[2019-03-31] MEDS: ZINC GLUCONATE 100 MG PO SCH (08:14)
[2019-03-31] MEDS ORDERED: Perflutren Lipid Microsphere 1.3 ML in 0.9 % Sodium Chloride 8.7 ML IVP ONE (13:07)
[2019-03-31] MEDS: Furosemide 20 MG/2 ML VIAL IVP SCH ×2 (14:00→17:22)
[2019-04-01 04:31] LABS: Basophils # 0.1 K/mcL (0.0-0.2); Basophils % 1.3 %; Eosinophils # 0.4 K/mcL (0.0-0.6); Eosinophils % 7.7 %; Hematocrit 25.1 % (37.5-50.1); Hemoglobin 8.4 g/dL (12.9-16.9); Immature Granulocytes % 0.4 % (0-4); Lymphocytes # 1.1 K/mcL (0.6-4.6); Lymphocytes % 20.3 %; Mean Corpuscular HGB Conc 33.5 g/dL (31.6-35.5); Mean Corpuscular Hemoglobin 32.4 pg (28.0-33.3); Mean Corpuscular Volume 96.9 fL (83.0-100.0); Monocytes # 0.8 K/mcL (0.0-1.3); Monocytes % 14.1 %; Platelet Count 107 K/mcL (140-400); Red Blood Count 2.59 M/mcL (4.19-5.50); Red Cell Distribution Width 17.9 % (11.5-14.5); Segmented Neutrophils % 56.2 %; White Blood Count 5.3 K/mcL (4.3-11.1)
[2019-04-01 04:50] LABS: BUN/Creatinine Ratio 16 (6-26); Blood Urea Nitrogen 14 mg/dL (6-20); Calcium 8.1 mg/dL (8.6-10.3); Carbon Dioxide 25 mEq/L (23-29); Chloride 103 mEq/L (98-107); Glucose 127 mg/dL (70-105); Osmolality,Calculated 284 (280-300); Sodium 136 mEq/L (136-145); eGFR For African Americans > 60 (> 60); eGFR For Non-African Americans > 60 (> 60)
[2019-04-01] MEDS: *HR* Heparin 5,000 UNIT/ML VIAL SQ SCH ×2 (05:35→17:24)
[2019-04-01] MEDS: Insulin LISPRO 300 UNITS/3 ML VIAL SQ SCH ×4 (07:47→21:23)
[2019-04-01] MEDS: Lactulose Oral Soln 20 GM/30 ML UDC PO SCH ×4 (07:59→21:28)
[2019-04-01] MEDS: Multivit/Ca/Min/Fe/FA 1 TAB TABLET PO SCH (07:59)
[2019-04-01] MEDS: Thiamine (B-1) 100 MG TABLET PO SCH (07:59)
[2019-04-01] MEDS: Folic Acid 1 MG TABLET PO SCH (07:59)
[2019-04-01] MEDS: Furosemide 20 MG/2 ML VIAL IVP SCH ×2 (08:00→17:24)
[2019-04-01 09:17] LABS: Hematocrit 28.2 % (37.5-50.1); Hemoglobin 9.2 g/dL (12.9-16.9)
[2019-04-01 10:20] LABS: Magnesium 1.5 mg/dL (1.6-2.6)
[2019-04-01 11:40] LABS: INR 1.6; Prothrombin Time 18.3 Seconds (9.4-12.1)
[2019-04-01 11:53] LABS: Albumin 2.4 g/dL (3.5-5.7); Albumin/Globulin Ratio 0.9 (1.1-2.2); Bilirubin,Indirect 1.7 mg/dL (0.0-1.0); Bilirubin,Total 2.7 mg/dL (0.3-1.0); Globulin 2.8 g/dL (2.4-3.5); Total Protein 5.2 g/dL (6.4-8.9)
[2019-04-01] MEDS: Zinc Sulfate 220 MG CAPSULE PO SCH (13:11)
[2019-04-01] MEDS: Hydrocortisone Acetate 25 MG RECTAL SUPPOSITORY RC SCH ×2 (13:11→21:28)
[2019-04-02 01:53] LABS: Basophils # 0.1 K/mcL (0.0-0.2); Basophils % 1.5 %; Eosinophils # 0.3 K/mcL (0.0-0.6); Eosinophils % 7.1 %; Hematocrit 27.1 % (37.5-50.1); Hemoglobin 8.6 g/dL (12.9-16.9); Immature Granulocytes % 0.2 % (0-4); Lymphocytes # 0.8 K/mcL (0.6-4.6); Lymphocytes % 17.2 %; Mean Corpuscular HGB Conc 31.7 g/dL (31.6-35.5); Mean Corpuscular Hemoglobin 32.3 pg (28.0-33.3); Mean Corpuscular Volume 101.9 fL (83.0-100.0); Mean Platelet Volume 10.2 fL (9.4-12.4); Monocytes # 0.6 K/mcL (0.0-1.3); Monocytes % 13.1 %; Neutrophils # 2.8 K/mcL (1.6-8.9); Platelet Count 109 K/mcL (140-400); Red Blood Count 2.66 M/mcL (4.19-5.50); Red Cell Distribution Width 18.1 % (11.5-14.5); Segmented Neutrophils % 60.9 %; White Blood Count 4.6 K/mcL (4.3-11.1)
[2019-04-02 01:56] LABS: BUN/Creatinine Ratio 13 (6-26); Blood Urea Nitrogen 12 mg/dL (6-20); Calcium 8.1 mg/dL (8.6-10.3); Carbon Dioxide 25 mEq/L (23-29); Chloride 104 mEq/L (98-107); Glucose 130 mg/dL (70-105); Osmolality,Calculated 284 (280-300); Potassium 3.5 mEq/L (3.5-5.1); Sodium 136 mEq/L (136-145); eGFR For African Americans > 60 (> 60); eGFR For Non-African Americans > 60 (> 60)
[2019-04-02] MEDS: *HR* Heparin 5,000 UNIT/ML VIAL SQ SCH (05:49)
[2019-04-02 06:59] VITALS: BP 144/95
[2019-04-02] MEDS ORDERED: Magnesium Sulfate 2 GM in D5% in Water 100 ML IVPB ONE (07:42)
[2019-04-02] MEDS: Lactulose Oral Soln 20 GM/30 ML UDC PO SCH (09:15)
[2019-04-02] MEDS: Insulin LISPRO 300 UNITS/3 ML VIAL SQ SCH (09:15)
[2019-04-02] MEDS: Zinc Sulfate 220 MG CAPSULE PO SCH (09:17)
[2019-04-02] MEDS: Furosemide 20 MG/2 ML VIAL IVP SCH (09:17)
[2019-04-02] MEDS: Folic Acid 1 MG TABLET PO SCH (09:17)
[2019-04-02] MEDS: Multivit/Ca/Min/Fe/FA 1 TAB TABLET PO SCH (09:17)
[2019-04-02] MEDS: Thiamine (B-1) 100 MG TABLET PO SCH (09:17)
[2019-04-02] MEDS: Hydrocortisone Acetate 25 MG RECTAL SUPPOSITORY RC SCH (09:18)
== END 2019-04-02 11:14 | disposition home health service (06) | DRG 279 ==
LOC: 3BNU 14:25 → EMEROOARM 14:25 → SUATTDRO 17:22 → 3BNU 18:01
PROVIDERS: ADMIT Student in an Organized Health Care Education/Training Program; ATTEND Student in an Organized Health Care Education/Training Program

== ENCOUNTER 2019-04-11 16:35 | Inpatient (IN) ==
[2019-04-11] MEDS ORDERED: Lactulose Oral Soln 20 GM/30 ML UDC PO ONE ×2 (16:44→16:54)
[2019-04-11 17:08] LABS: Bilirubin,Urine Negative (Negative); Blood,Urine Negative (Negative); Clarity,Urine Clear (Clear); Color,Urine Yellow (Yellow); Glucose,Urine (UA) Normal (Normal); Ketones,Urine Trace mg/dL (Negative); Leukocyte Esterase,Urine Negative (Negative); Nitrite,Urine Negative (Negative); Protein,Urine Negative (Neg-Trace); Specific Gravity,Urine 1.021 (1.010-1.025); Urobilinogen,Urine Normal (Normal)
[2019-04-11 17:21] LABS: Amphetamine Screen,Urine Negative ng/mL (Cutoff=1000); Barbiturate Screen,Urine Negative ng/mL (Cutoff=200); Benzodiazepines Screen,Urine Negative ng/mL (Cutoff=200); Cannabinoid Screen,Urine Negative ng/mL (Cutoff = 50); Cocaine Screen,Urine Negative ng/mL (Cutoff= 300); Opiate Screen,Urine Negative ng/mL (Cutoff=300); Phencyclidine Screen,Urine Negative ng/mL (Cutoff=25)
[2019-04-11 17:22] LABS: Basophils # 0.1 K/mcL (0.0-0.2); Basophils % 1.2 %; Eosinophils # 0.7 K/mcL (0.0-0.6); Eosinophils % 8.4 %; Hematocrit 32.5 % (37.5-50.1); Hemoglobin 11.4 g/dL (12.9-16.9); Immature Granulocytes % 0.4 % (0-4); Lymphocytes # 1.1 K/mcL (0.6-4.6); Lymphocytes % 12.9 %; Mean Corpuscular HGB Conc 35.1 g/dL (31.6-35.5); Mean Corpuscular Volume 94.2 fL (83.0-100.0); Monocytes # 0.8 K/mcL (0.0-1.3); Monocytes % 9.8 %; Neutrophils # 5.8 K/mcL (1.6-8.9); Platelet Count 102 K/mcL (140-400); Red Blood Count 3.45 M/mcL (4.19-5.50); Red Cell Distribution Width 18.6 % (11.5-14.5); Segmented Neutrophils % 67.3 %; White Blood Count 8.6 K/mcL (4.3-11.1)
[2019-04-11 17:27] LABS: INR 1.6; Prothrombin Time 17.7 Seconds (9.4-12.1)
[2019-04-11 17:46] LABS: Alanine Aminotransferase 60 Units/L (7-52); Albumin 2.8 g/dL (3.5-5.7); Albumin/Globulin Ratio 0.7 (1.1-2.2); Alkaline Phosphatase 160 Units/L (34-104); Aspartate Amino Transferase 77 Units/L (13-39); BUN/Creatinine Ratio 20 (6-26); Bilirubin,Direct 0.9 mg/dL (0.0-0.2); Bilirubin,Total 2.9 mg/dL (0.3-1.0); Blood Urea Nitrogen 29 mg/dL (6-20); Calcium 9.7 mg/dL (8.6-10.3); Carbon Dioxide 27 mEq/L (23-29); Chloride 91 mEq/L (98-107); Ethanol < 10 mg/dL (Less than 10); Globulin 3.8 g/dL (2.4-3.5); Glucose 87 mg/dL (70-105); Osmolality,Calculated 277 (280-300); Potassium 3.4 mEq/L (3.5-5.1); Sodium 131 mEq/L (136-145); Total Protein 6.6 g/dL (6.4-8.9); Troponin I < 0.03 ng/mL (< 0.04); eGFR For African Americans > 60 (> 60); eGFR For Non-African Americans 51 (> 60)
[2019-04-11 17:53] LABS: Magnesium 1.7 mg/dL (1.6-2.6)
[2019-04-11] MEDS ORDERED: 0.9 % Sodium Chloride 1,000 ML IVC SCH (23:45)
[2019-04-11] MEDS ORDERED: Naloxone 0.4 MG/ML INJ IVP PRN (23:51)
[2019-04-12] MEDS ORDERED: *HR* Dextrose 50 % in Water (Syg) 50 ML SYRINGE IVP PRN (00:17)
[2019-04-12] MEDS ORDERED: D5% in Water 1,000 ML IVC PRN (00:17)
[2019-04-12] MEDS ORDERED: Dextrose Gel 15 GM/37.5 ML TUBE PO PRN ×2 (00:17)
[2019-04-12] MEDS ORDERED: Lactulose Oral Soln 20 GM/30 ML UDC PO SCH ×2 (02:00→04:59)
[2019-04-12 04:16] LABS: Hematocrit 29.7 % (37.5-50.1); Hemoglobin 10.2 g/dL (12.9-16.9); Mean Corpuscular HGB Conc 34.3 g/dL (31.6-35.5); Mean Corpuscular Hemoglobin 32.5 pg (28.0-33.3); Mean Corpuscular Volume 94.6 fL (83.0-100.0); Mean Platelet Volume 9.9 fL (9.4-12.4); Platelet Count 143 K/mcL (140-400); Red Blood Count 3.14 M/mcL (4.19-5.50); Red Cell Distribution Width 18.9 % (11.5-14.5)
[2019-04-12 04:17] LABS: White Blood Count 13.2 K/mcL (4.3-11.1)
[2019-04-12 04:21] LABS: INR 1.7; Prothrombin Time 18.8 Seconds (9.4-12.1)
[2019-04-12 04:36] LABS: Albumin 2.6 g/dL (3.5-5.7); Albumin/Globulin Ratio 0.8 (1.1-2.2); Bilirubin,Total 3.2 mg/dL (0.3-1.0); Calcium 9.2 mg/dL (8.6-10.3); Globulin 3.3 g/dL (2.4-3.5); Magnesium 1.7 mg/dL (1.6-2.6); Phosphorous 4.4 mg/dL (2.7-4.5); Potassium 3.7 mEq/L (3.5-5.1); Total Protein 5.9 g/dL (6.4-8.9)
[2019-04-12] MEDS: Lactulose Oral Soln 20 GM/30 ML UDC PO SCH ×7 (05:25→20:05)
[2019-04-12] MEDS: Insulin LISPRO 300 UNITS/3 ML VIAL SQ SCH ×3 (05:27→17:27)
[2019-04-12] MEDS: Thiamine (B-1) 100 MG TABLET PO SCH (10:17)
[2019-04-13] MEDS: Insulin LISPRO 300 UNITS/3 ML VIAL SQ SCH ×4 (00:38→17:56)
[2019-04-13 04:34] LABS: Basophils # 0.1 K/mcL (0.0-0.2); Basophils % 1.2 %; Eosinophils # 0.8 K/mcL (0.0-0.6); Eosinophils % 7.6 %; Hematocrit 29.4 % (37.5-50.1); Hemoglobin 10.2 g/dL (12.9-16.9); Immature Granulocytes % 0.5 % (0-4); Lymphocytes # 1.4 K/mcL (0.6-4.6); Mean Corpuscular HGB Conc 34.7 g/dL (31.6-35.5); Mean Corpuscular Hemoglobin 32.8 pg (28.0-33.3); Mean Corpuscular Volume 94.5 fL (83.0-100.0); Monocytes # 1.3 K/mcL (0.0-1.3); Monocytes % 12.9 %; Neutrophils # 6.5 K/mcL (1.6-8.9); Platelet Count 158 K/mcL (140-400); Red Blood Count 3.11 M/mcL (4.19-5.50); Red Cell Distribution Width 19.1 % (11.5-14.5); Segmented Neutrophils % 63.8 %; White Blood Count 10.1 K/mcL (4.3-11.1)
[2019-04-13 04:38] LABS: INR 1.7
[2019-04-13 04:55] LABS: Calcium 8.9 mg/dL (8.6-10.3); Potassium 4.1 mEq/L (3.5-5.1)
[2019-04-13] MEDS: Lactulose Oral Soln 20 GM/30 ML UDC PO SCH ×5 (07:01→21:22)
[2019-04-13] MEDS: Thiamine (B-1) 100 MG TABLET PO SCH (09:33)
[2019-04-13] MEDS: Thiamine (B-1) 100 MG in 0.9 % Sodium Chloride 50 ML IVPB SCH (11:21)
[2019-04-13 17:43] LABS: Sodium, Urine 10.7 mEq/L
[2019-04-13 17:55] LABS: Uric Acid 17.4 mg/dL (2.3-7.6)
[2019-04-13] MEDS: 0.9 % Sodium Chloride 1,000 ML IVC SCH (18:48)
[2019-04-14 01:52] LABS: INR 1.8; Prothrombin Time 20.1 Seconds (9.4-12.1)
[2019-04-14 01:53] LABS: Basophils # 0.1 K/mcL (0.0-0.2); Basophils % 1.2 %; Eosinophils # 0.6 K/mcL (0.0-0.6); Eosinophils % 7.4 %; Hematocrit 27.3 % (37.5-50.1); Hemoglobin 9.3 g/dL (12.9-16.9); Immature Granulocytes % 0.5 % (0-4); Lymphocytes # 1.6 K/mcL (0.6-4.6); Lymphocytes % 18.1 %; Mean Corpuscular HGB Conc 34.1 g/dL (31.6-35.5); Mean Corpuscular Hemoglobin 33.3 pg (28.0-33.3); Mean Corpuscular Volume 97.8 fL (83.0-100.0); Mean Platelet Volume 9.3 fL (9.4-12.4); Monocytes # 1.3 K/mcL (0.0-1.3); Monocytes % 15.1 %; Platelet Count 145 K/mcL (140-400); Red Blood Count 2.79 M/mcL (4.19-5.50); Red Cell Distribution Width 19.2 % (11.5-14.5); Segmented Neutrophils % 57.7 %; White Blood Count 8.7 K/mcL (4.3-11.1)
[2019-04-14 02:07] LABS: Albumin 2.6 g/dL (3.5-5.7); Albumin/Globulin Ratio 0.8 (1.1-2.2); Bilirubin,Total 3.2 mg/dL (0.3-1.0); Calcium 8.6 mg/dL (8.6-10.3); Globulin 3.2 g/dL (2.4-3.5); Potassium 3.7 mEq/L (3.5-5.1); Total Protein 5.8 g/dL (6.4-8.9)
[2019-04-14] MEDS: Insulin LISPRO 300 UNITS/3 ML VIAL SQ SCH ×4 (02:12→16:58)
[2019-04-14] MEDS: 0.9 % Sodium Chloride 1,000 ML IVC SCH ×3 (03:10→22:50)
[2019-04-14] MEDS: Thiamine (B-1) 100 MG in 0.9 % Sodium Chloride 50 ML IVPB SCH (08:54)
[2019-04-14] MEDS: Lactulose Oral Soln 20 GM/30 ML UDC PO SCH ×4 (08:56→21:01)
[2019-04-14] MEDS ORDERED: Lactulose 200 GM/300 ML (for enema) RC SCH (11:15)
[2019-04-14] MEDS: Lactulose 200 GM, Sodium Chloride IRRigation 700 ML RC SCH ×2 (14:34→21:07)
[2019-04-15] MEDS: Insulin LISPRO 300 UNITS/3 ML VIAL SQ SCH ×3 (02:04→12:07)
[2019-04-15 03:22] LABS: Basophils # 0.1 K/mcL (0.0-0.2); Eosinophils # 0.5 K/mcL (0.0-0.6); Eosinophils % 8.5 %; Hematocrit 25.1 % (37.5-50.1); Hemoglobin 8.1 g/dL (12.9-16.9); Immature Granulocytes % 0.3 % (0-4); Lymphocytes % 16.2 %; Mean Corpuscular HGB Conc 32.3 g/dL (31.6-35.5); Mean Platelet Volume 9.5 fL (9.4-12.4); Monocytes # 0.7 K/mcL (0.0-1.3); Monocytes % 11.4 %; Neutrophils # 3.9 K/mcL (1.6-8.9); Platelet Count 117 K/mcL (140-400); Red Blood Count 2.38 M/mcL (4.19-5.50); Red Cell Distribution Width 19.2 % (11.5-14.5); Segmented Neutrophils % 62.6 %; White Blood Count 6.2 K/mcL (4.3-11.1)
[2019-04-15 03:25] LABS: INR 1.8; Prothrombin Time 20.6 Seconds (9.4-12.1)
[2019-04-15 03:28] LABS: Albumin 2.3 g/dL (3.5-5.7); Albumin/Globulin Ratio 0.8 (1.1-2.2); Bilirubin,Direct 1.2 mg/dL (0.0-0.2); Bilirubin,Indirect 1.5 mg/dL (0.0-1.0); Bilirubin,Total 2.7 mg/dL (0.3-1.0); Calcium 8.2 mg/dL (8.6-10.3); Magnesium 2.1 mg/dL (1.6-2.6); Potassium 3.2 mEq/L (3.5-5.1); Total Protein 5.3 g/dL (6.4-8.9)
[2019-04-15 04:16] LABS: Mean Corpuscular Volume 105.5 fL (83.0-100.0)
[2019-04-15] MEDS: 0.9 % Sodium Chloride 1,000 ML IVC SCH ×3 (06:35→20:37)
[2019-04-15] MEDS ORDERED: Potassium Chloride 40 MEQ, Lidocaine 1% 2 ML in 0.9 % Sodium Chloride 500 ML IVPB ONE (08:09)
[2019-04-15] MEDS: Lactulose Oral Soln 20 GM/30 ML UDC PO SCH ×4 (09:50→20:34)
[2019-04-15] MEDS: Thiamine (B-1) 100 MG in 0.9 % Sodium Chloride 50 ML IVPB SCH (09:56)
[2019-04-15] MEDS ORDERED: Insulin LISPRO 300 UNITS/3 ML VIAL SQ SCH (21:00)
[2019-04-16 05:28] LABS: Alanine Aminotransferase 52 Units/L (7-52); Albumin 2.4 g/dL (3.5-5.7); Albumin/Globulin Ratio 0.8 (1.1-2.2); Alkaline Phosphatase 129 Units/L (34-104); Aspartate Amino Transferase 70 Units/L (13-39); BUN/Creatinine Ratio 30 (6-26); Bilirubin,Indirect 1.4 mg/dL (0.0-1.0); Bilirubin,Total 2.4 mg/dL (0.3-1.0); Blood Urea Nitrogen 35 mg/dL (6-20); Calcium 7.7 mg/dL (8.6-10.3); Carbon Dioxide 25 mEq/L (23-29); Chloride 99 mEq/L (98-107); Glucose 116 mg/dL (70-105); Osmolality,Calculated 281 (280-300); Potassium 3.4 mEq/L (3.5-5.1); Sodium 131 mEq/L (136-145); Total Protein 5.4 g/dL (6.4-8.9); eGFR For African Americans > 60 (> 60); eGFR For Non-African Americans > 60 (> 60)
[2019-04-16] MEDS: 0.9 % Sodium Chloride 1,000 ML IVC SCH ×2 (06:15→09:40)
[2019-04-16 07:33] LABS: Prothrombin Time 22.4 Seconds (9.4-12.1)
[2019-04-16] MEDS: Insulin LISPRO 300 UNITS/3 ML VIAL SQ SCH ×2 (08:50→12:12)
[2019-04-16] MEDS: Lactulose Oral Soln 20 GM/30 ML UDC PO SCH ×2 (08:50→13:58)
[2019-04-16] MEDS ORDERED: Folic Acid 1 MG TABLET PO SCH (09:00)
[2019-04-16 11:36] LABS: Basophils # 0.1 K/mcL (0.0-0.2); Basophils % 0.8 %; Eosinophils # 0.7 K/mcL (0.0-0.6); Hematocrit 23.4 % (37.5-50.1); Lymphocytes # 0.7 K/mcL (0.6-4.6); Mean Corpuscular HGB Conc 34.2 g/dL (31.6-35.5); Mean Corpuscular Hemoglobin 33.3 pg (28.0-33.3); Mean Corpuscular Volume 97.5 fL (83.0-100.0); Mean Platelet Volume 9.9 fL (9.4-12.4); Monocytes # 0.7 K/mcL (0.0-1.3); Monocytes % 10.8 %; Red Cell Distribution Width 17.9 % (11.5-14.5); Segmented Neutrophils % 64.4 %; White Blood Count 6.2 K/mcL (4.3-11.1)
[2019-04-16 11:59] LABS: Platelet Count 84 K/mcL (140-400)
[2019-04-16 12:03] LABS: Anisocytosis 2+ (Not Present)
[2019-04-16 12:04] LABS: Microcytosis Present (Not Present); Platelet Estimate Decreased (Normal)
[2019-04-16 12:12] VITALS: BP 112/58
[2019-04-16] MEDS: Thiamine (B-1) 100 MG in 0.9 % Sodium Chloride 50 ML IVPB SCH (12:12)
== END 2019-04-16 14:41 | disposition home or self-care (01) | DRG 279 ==
LOC: EMEROOARM 16:35 → 2NENU 16:35 → SUATTDRO 20:28 → 2NENU 21:47
PROVIDERS: ADMIT Family Medicine; ATTEND Internal Medicine

== ENCOUNTER 2019-04-26 08:06 | Observation (INO) ==
[2019-04-26] MEDS ORDERED: *HR* Promethazine 25 MG/ML VIAL IVP PRN (11:25)
[2019-04-26] MEDS ORDERED: Mag Hydrox/Al Hydrox/Simeth 30 ML UDC PO PRN (11:25)
[2019-04-26] MEDS ORDERED: Naloxone 0.4 MG/ML INJ IVP PRN (11:25)
[2019-04-26] MEDS ORDERED: MOM Conc 10 ML UD.LIQ PO PRN (11:25)
[2019-04-26] MEDS ORDERED: Ondansetron 4 MG/2 ML VIAL IVP PRN (11:25)
[2019-04-26] MEDS ORDERED: *HR* Dextrose 50 % in Water (Syg) 50 ML SYRINGE IVP PRN (11:27)
[2019-04-26] MEDS ORDERED: Dextrose Gel 15 GM/37.5 ML TUBE PO PRN ×2 (11:27)
[2019-04-26] MEDS ORDERED: D5% in Water 1,000 ML IVC PRN (11:27)
[2019-04-26] MEDS: Insulin LISPRO 300 UNITS/3 ML VIAL SQ SCH ×2 (12:21→18:07)
[2019-04-26] MEDS: Lactulose Oral Soln 20 GM/30 ML UDC PO SCH ×2 (16:28→23:23)
[2019-04-26] MEDS ORDERED: Insulin LISPRO 300 UNITS/3 ML VIAL SQ SCH (21:00)
[2019-04-27 02:01] LABS: Basophils # 0.1 K/mcL (0.0-0.2); Eosinophils # 0.4 K/mcL (0.0-0.6); Hematocrit 26.4 % (37.5-50.1); Hemoglobin 9.2 g/dL (12.9-16.9); Immature Granulocytes % 0.5 % (0-4); Lymphocytes # 0.8 K/mcL (0.6-4.6); Lymphocytes % 9.7 %; Mean Corpuscular HGB Conc 34.8 g/dL (31.6-35.5); Mean Corpuscular Hemoglobin 31.5 pg (28.0-33.3); Mean Platelet Volume 9.5 fL (9.4-12.4); Monocytes # 0.8 K/mcL (0.0-1.3); Monocytes % 10.3 %; Neutrophils # 5.9 K/mcL (1.6-8.9); Platelet Count 104 K/mcL (140-400); Red Blood Count 2.92 M/mcL (4.19-5.50); Segmented Neutrophils % 73.5 %
[2019-04-27 02:02] LABS: Mean Corpuscular Volume 90.4 fL (83.0-100.0)
[2019-04-27 02:19] LABS: Calcium 7.9 mg/dL (8.6-10.3); Magnesium 1.9 mg/dL (1.6-2.6); Phosphorous 3.7 mg/dL (2.7-4.5); Potassium 3.6 mEq/L (3.5-5.1)
[2019-04-27 03:43] VITALS: BP 138/82
[2019-04-27] MEDS ORDERED: Zinc Sulfate 220 MG CAPSULE PO SCH (09:00)
[2019-04-27] MEDS ORDERED: *HR* EPINEPHrine 1 MG/10 ML SYRINGE IVP ONE (12:19)
== END 2019-04-27 12:20 | disposition expired ==
LOC: 3BNU
PROVIDERS: ADMIT Internal Medicine; ATTEND Internal Medicine